=== PATIENT | female | born 1950 | race Caucasian/White ===

== ENCOUNTER 2016-11-03 08:25 | Inpatient (IN) | payer BC, OTHER ==
[~2016-11-03] VITALS: Ht 170.2 cm; Wt 118.0 kg
[~2016-11-03 08:25] MED LIST: ASPI-435 PO; ATOR-54 PO; CALC600T33 PO; CPR500 PO; GLUC15002 PO; LPR25 PO; PHEN-876 PO; TAMS0.4C38 PO; TRAM-10 PO
[2016-11-03 08:32] VITALS: TEMP 36.7; Ht 170.2 cm; Wt 118.0 kg
[2016-11-03 08:35] VITALS: O2SAT 93
[2016-11-03] MEDS ORDERED: SODIUM CHLORIDE 0.9% 1000ML 1,000 ML IV STA (08:41)
[2016-11-03] MEDS ORDERED: SODIUM CHLORIDE 0.9% 1000ML 1,000 ML IV ONE (08:41)
--- NOTE | 2016-11-03 08:46 | EMERGENCY ROOM VISIT NOTE ---
History Report prepared by Love: Loree Todd Under the Supervision of: Dr. Tam Baird M.D. First contact with patient: 08:31 Chief Complaint: CARDIAC ASSESSMENT Stated Complaint: POS A-FIB, FAST HEARTRATE History of Present Illness The patient is a 66 year old female who presents to the Emergency Room with complaints of an intermittent fast heart rate that began about a week ago. The patient states that she feels well when she is sitting still but starts to feel her heart racing when she exerts herself. She was raking leaves a few days ago, which is normal activity for her, and had to stop a few times to take deep breaths and slow down her heart rate. She has not passed out. Currently, the patient states that she feels great. She does not currently feel her heart racing or skipping beats. She initially saw her PCP last week and had blood work. She is scheduled for testing on Sunday because her PCP suspects COPD. She does not have a history of chronic lung problems. No history of anxiety, blood clots or thyroid problems. There is a strong family history of heart disease. The patient had an episode of a-fib February 2016 and was put on Metoprolol, She is not on a blood thinner. Denies fevers, calf pain or swelling, or other complaints. No recent travel. She has been keeping up with fluids. Source of History: patient Onset: a week ago Position: other (global) Quality: other (fast heart rate) Modifying Factors (Worsening): exertion Modifying Factors (Relieving): rest Associated Symptoms: No fevers Review of Systems See HPI for pertinent positives & negatives. A total of 10 systems reviewed and were otherwise negative. Past Medical & Surgical Medical Problems: (1) Diabetes mellitus, type 2 (2) Dyslipidemia (3) History of urinary calculi (4) Morbid obesity with BMI of 40.0-44.9, adult (5) Normal colonoscopy (6) Obesity (BMI 30-39.9) (7) SRIDHAR on CPAP (8) Paroxysmal atrial fibrillation (9) Pulmonary embolism (10) UTI (urinary tract infection) Surgical Problems: (1) H/O cystoscopy (2) History of tonsillectomy (3) History of total abdominal hysterectomy (4) S/P cholecystectomy (5) Status post colonoscopy Old medical records were reviewed. Nurse's notes were reviewed and I agree with. Family History Diabetes mellitus FH: cancer FH: gallbladder disease FH: heart disease FH: lung disease Hypertension Kidney disease Kidney stones Social History Smoking Status: Never Smoker Alcohol Use: none Marital Status: Housing Status: lives with significant other Occupation Status: employed Current/Historical Medications Scheduled Aspirin (Aspirin 81), 81 MG PO DAILY Atorvastatin (Lipitor), 20 MG PO DAILY Calcium Carbonate-Vitamin D (Calcium 600/Vitamin D), 1 TAB PO BID Metoprolol Tartrate (Lopressor), 25 MG PO BID Allergies Coded Allergies: Penicillins (Verified Allergy, Intermediate, VIOLENT NOSE BLEEDS, 11/03/16) Morphine (Verified Adverse Reaction, Intermediate, GI SYMPTOMS, 11/03/16) Codeine (Verified Adverse Reaction, Mild, GI SYMPTOMS, "OUT OF BODY EXPERIENCE", 11/03/16) Physical Exam Vital Signs Date Time Temp Pulse Resp B/P Pulse Ox O2 Delivery O2 Flow Rate FiO2 11/03/16 11:09 108 18 133/96 90 Nasal Cannula 4.0 11/03/16 10:35 102 24 139/80 88 Nasal Cannula 4.0 11/03/16 10:22 110 24 139/89 Nasal Cannula 2.0 11/03/16 09:23 98 24 147/89 90 Nasal Cannula 2.0 11/03/16 08:35 93 Nasal Cannula 2.0 11/03/16 08:35 119 11/03/16 08:35 86 Room Air 11/03/16 08:32 36.7 126 28 142/87 88 Room Air Physical Exam General: Non-ill appearing older female. Well developed well nourished in no acute distress. Normal speech HEENT: Normal cephalic atraumatic. Pupils are equal round and reactive to light. Sclera anicteric. Extraocular movements are intact. Oropharynx is pink with moist mucous membranes. No swelling of the mouth lips or tongue. Neck: Supple with a midline trachea. No meningeal signs or stiffness, no JVD or bruits. No Stridor. Chest: Clear to auscultation bilaterally. No wheezes or rhonchi. No increased work of breathing. Heart: Sinus tachycardia. Abdomen: Soft nontender, nondistended without rebound guarding or rigidity. Extremities: No cyanosis clubbing or edema. No calf tenderness or assymetry Spine/Back. Non tender to palpation. No CVA tenderness Skin: Good turgor without rashes. Neurologic exam: Cranial nerves two through 12 are intact. Motor and sensation are intact and symmetrical throughout. Medical Decision & Procedures ER Provider Diagnostic Interpretation: Radiology results as stated below per my review and radiologist interpretation: CHEST ONE VIEW PORTABLE CLINICAL HISTORY: CHEST PAIN dyspnea COMPARISON STUDY: 02/25/2016 FINDINGS: Focal infiltrate versus nodular pathology left upper lung. Lungs otherwise appear clear. No evidence for cardiac enlargement. IMPRESSION: Interval development of a focal infiltrate left upper lung versus the less likely possibility of a developing nodular pathology. Follow-up to resolution is suggested Electronically signed by: Sarath Jay M.D. 11/03/2016 9:01 AM Dictated Date/Time: 11/03/2016 9:00 AM CHEST CTA for PULMONARY ARTERIES CT DOSE: 559.46 mGycm HISTORY: Chest pain dyspnea. Abnormal chest x-ray. TECHNIQUE: Multiaxial CT images of the chest were performed following the intravenous administration of contrast to evaluate the pulmonary arteries. Maximal intensity projection images were also obtained. COMPARISON STUDY: 02/27/2016 FINDINGS: Study is positive for bilateral pulmonary emboli. This involves the distal right main pulmonary artery with additional filling defects in the right upper as well as right lower lung. Study is positive for pulmonary emboli involving the left lower as well as left upper lobe pulmonary arterial distributions. Study confirms presence of small parenchymal infiltrate anterior aspect right upper lobe as well as a geographic infiltrative process of the left perihilar region. This confirms the findings seen in the patient's chest film. There is a 6 x 3 cm maximum dimension left perihilar infiltrate.. Focal areas of potential contained nodularity are present. This presumably is inflammatory although should be watched closely. Follow-up to resolution is mandatory IMPRESSION: 1. Study is positive for extensive bilateral pulmonary emboli. 2. 6 x 3 cm left perihilar parenchymal infiltrate, although this should be followed to complete resolution to exclude possibility of underlying persistent nodularity or neoplastic change. Electronically signed by: Sarath Jay M.D. 11/03/2016 10:33 AM Dictated Date/Time: 11/03/2016 10:23 AM CHEST ONE VIEW PORTABLE CLINICAL HISTORY: CHEST PAIN dyspnea COMPARISON STUDY: Prior study same date 8:47 AM FINDINGS: Mild progression of a parenchymal infiltrative process left midlung. Slight increase in parenchymal density left lung base. Right lung remains clear. Heart remains mildly enlarged. IMPRESSION: Mildly progressive parenchymal infiltrative changes left midlung and left base. Mild stable cardiomegaly. Electronically signed by: Sarath Jay M.D. 11/03/2016 3:07 PM Dictated Date/Time: 11/03/2016 3:06 PM Laboratory Results 11/03/16 08:36 Red Blood Count 5.02, Mean Corpuscular Volume 85.1, Mean Corpuscular Hemoglobin 29.1, Mean Corpuscular Hemoglobin Concent 34.2, Mean Platelet Volume 9.4, Neutrophils (%) (Auto) 67.3, Lymphocytes (%) (Auto) 25.0, Monocytes (%) (Auto) 6.2, Eosinophils (%) (Auto) 1.2, Basophils (%) (Auto) 0.2, Neutrophils # (Auto) 5.97, Lymphocytes # (Auto) 2.22, Monocytes # (Auto) 0.55, Eosinophils # (Auto) 0.11, Basophils # (Auto) 0.02 11/03/16 08:36 Test 11/03/16 08:36 11/03/16 09:15 White Blood Count 8.88 K/uL (4.8-10.8) Red Blood Count 5.02 M/uL (4.2-5.4) Hemoglobin 14.6 g/dL (12.0-16.0) Hematocrit 42.7 % (37-47) Mean Corpuscular Volume 85.1 fL (80-100) Mean Corpuscular Hemoglobin 29.1 pg (25-34) Mean Corpuscular Hemoglobin Concent 34.2 g/dl (32-36) Platelet Count 197 K/uL (130-400) Mean Platelet Volume 9.4 fL (7.4-10.4) Neutrophils (%) (Auto) 67.3 % Lymphocytes (%) (Auto) 25.0 % Monocytes (%) (Auto) 6.2 % Eosinophils (%) (Auto) 1.2 % Basophils (%) (Auto) 0.2 % Neutrophils # (Auto) 5.97 K/uL (1.4-6.5) Lymphocytes # (Auto) 2.22 K/uL (1.2-3.4) Monocytes # (Auto) 0.55 K/uL (0.11-0.59) Eosinophils # (Auto) 0.11 K/uL (0-0.5) Basophils # (Auto) 0.02 K/uL (0-0.2) RDW Standard Deviation 43.1 fL (36.4-46.3) RDW Coefficient of Variation 13.9 % (11.5-14.5) Immature Granulocyte % (Auto) 0.1 % Immature Granulocyte # (Auto) 0.01 K/uL (0.00-0.02) Prothrombin Time 11.0 SECONDS (9.0-12.0) Prothromb Time International Ratio 1.0 (0.9-1.1) Activated Partial Thromboplast Time 24.0 SECONDS (21.0-31.0) Partial Thromboplastin Ratio 0.9 Anion Gap 11.0 mmol/L (3-11) Est Creatinine Clear Calc Drug Dose 67.8 ml/min Estimated GFR () 61.0 Estimated GFR (Non- 52.6 BUN/Creatinine Ratio 18.1 (10-20) Calcium Level 9.1 mg/dl (8.5-10.1) Total Bilirubin 0.8 mg/dl (0.2-1) Direct Bilirubin 0.1 mg/dl (0-0.2) Aspartate Amino Transf (AST/SGOT) 33 U/L (15-37) Alanine Aminotransferase (ALT/SGPT) 23 U/L (12-78) Alkaline Phosphatase 102 U/L (45-117) Total Creatine Kinase 155 U/L (26-192) Creatine Kinase MB 2.6 ng/ml (0.5-3.6) Creatine Kinase MB Ratio 1.7 (0-3.0) Total Protein 7.4 gm/dl (6.4-8.2) Albumin 3.6 gm/dl (3.4-5.0) Lipase 124 U/L (73-393) Thyroid Stimulating Hormone (TSH) 3.950 uIu/ml (0.300-4.500) Bedside D-Dimer > 450 ng/mlFEU (0-450) Bedside Troponin I 0.060 ng/ml (0-0.045) WB-Ezt-Z-Type Natriuretic Peptide 3300 pg/ml (0-900) Laboratory studies as stated above per my review. Medications Administered Medications (Trade) Dose Ordered Sig/Evelyn Route Start Time Stop Time Status Last Admin Dose Admin Sodium Chloride (Nss 1000ml) 1,000 ml @ 999 mls/hr Q1H1M STAT IV 11/03/16 08:41 11/03/16 09:41 DC 11/03/16 08:41 999 MLS/HR Heparin Sodium/ Dextrose (Heparin 25,000 Unit/500ml D5W) 25,000 unit STK-MED ONCE .ROUTE 11/03/16 11:05 11/03/16 11:06 DC 11/03/16 11:06 25,000 UNIT Heparin Sodium (Porcine) (Heparin Sq 5000 Unit/0.5ml) 10,000 unit STK-MED ONCE .ROUTE 11/03/16 11:05 11/03/16 11:06 DC 11/03/16 11:05 7,000 UNIT ECG Indication: tachycardia Rate (beats per minute): 125 Rhythm: sinus tachycardia Findings: no acute ischemic change, other (nonspecific T wave abnormality) Comparison ECG Date: 02/27/16 Change: Sinus tachycardia has replaced a-fib. REPEAT EKG: Sinus tachycardia at 108 BPM. Nonspecific T wave abnormality. Compared to EKG from earlier today, T waves are more nonspecific. ED Course 0835: Past medical records reviewed. The patient was evaluated in room B3, and a complete history and physical examination were performed. 0841: Ordered NSS 1000 ml @ 150 mls/hr IV, NSS 1000 ml @ 999 mls/hr IV. 0912: I reassessed the patient. She was resting comfortably. Her oxygen was in the high 80s and her heart rate was in the 90s. 1019: I reassessed the patient. She just came back from CT scan. She is feeling comfortable as long as she is at rest. 1034: Upon reevaluation, the patient is resting comfortably. I discussed the results and treatment plan with the patient. She verbalized agreement of the treatment plan. The patient will be evaluated for further management. 1041: Ordered Heparin Sodium/Dextrose 1 ea. 1047: I discussed the case with Angela Chester PA-C - [facility]. The patient will be evaluated for further management. 1323: The patient had a syncopal episode on the commode and a code blue was called. CPR was administered. Intubation and TPA was considered; however, the patient came to and was put on the monitor. 1353: I reassessed the patient. She looks better. She was less tachycardic and normotensive. 1403: I reassessed the patient. She is feeling better. 1410: I reassessed the patient. She is doing much better. [id number]: Dr. Reyes - ICU spoke with [facility], Dr. Barreto - [facility], Dr. Gonzalez - [facility], and Dr. Glaser - [facility]. Dr. Glaser will be the accepting physician for the patient's transfer. The patient signed consent for transfer to [facility] arranged by Dr. Reyes. 1442: I updated the patient. Ordered Fentanyl Inj 50 mcg IV. 1448: Ordered Zofran Inj 4 mg IV. 1456: I reassessed the patient. She looks much better. 1459: [facility] should be arriving in about 20 minutes. 1500: I updated the patient on the [facility] arrival time. Medical Decision Differentials include PE, arrhythmia, acute coronary syndrome, electrolyte or metabolic abnormality, thyroid disease. This patient comes in as described above. She was placed in room B3. She is here for treatment and evaluation of shortness breath and tachycardia. It is primarily with exertion at rest she feels fine she still is tachycardic. She does have a history of A. fib 1 is on Metoprol. She had no fever. She looks well on exam. IV access was established EKG multiple blood tests was obtained chest x-ray was obtained. Based on her history is concern for PE among other medical problems. Jicha sinus tachycardia troponin is mildly elevated 0.6 her BNP is mildly elevated. She's had no acute electrolyte metabolic abnormality. CAT scan shows bilateral PE with large clot burden. There is no saddle emboli. She was started on IV heparin bolus and hourly rate of IV heparin. I did consult the [facility] hospitalist. The patient had been seen and was waiting to be admitted. The nurse came and told me that she had collapsed on the toilet. We went in the room and the patient had some agonal respirations we started CPR and were able to drag her out of the bathroom she woke up and started screaming he put her on the bed and established a second third IV. A CODE BLUE had been called and multiple people responded Dr. Reyes from the ICU also came down. There was consideration to given her TPA however she seemed to stabilize quickly and most likely was a vasovagal episode in the setting of a large clot burden. Dr. Reyes feels that she would be best served at a tertiary care center with a could potentially do catheter directed therapy. He has called and talked to the team at [facility] and [facility] is going to come flying her in transfer for her pulmonary embolism. He did a second EKG and there is no significant change compared to the first. The T waves do appear more nonspecific. I did a chest x-ray after CPR there is no pneumothorax. She does have haziness in the left lung that was there before but may be more pronounced likely consistent with a pulmonary infarct from her PE. [facility] did arrive promptly. I did reassess her frequently and just prior to discharge and she looked significantly better her O2 sat was in the mid 90s on supplemental oxygen and her vital signs are stable. She willl be transfered emergently to [facility]. Consults Time Called: 1034 Consulting Physician: [facility] Returned Call: 1041 I discussed the case with her. The patient will be evaluated for further management. Impression Primary Impression: Pulmonary embolism Additional Impressions: Tachycardia Syncope Vaso vagal episode Critical Care I have personally spent greater than 60 minutes of critical care time in the direct management of this patient. This includes bedside care, interpretation of diagnostic studies, and testing, discussion with consultants, patient, and family members, and other required patient management activities. This 60 minutes is in excess of all separately billable procedures. Scribe Attestation The scribe's documentation has been prepared under my direction and personally reviewed by me in its entirety. I confirm that the note above accurately reflects all work, treatment, procedures, and medical decision making performed by me. Departure Information Dispostion Transfer Acute Care Facility Referrals Kristin Bar D.O. (PCP) Patient Instructions [facility] Problem Qualifiers
[2016-11-03 08:53] LABS: BASO % 0.2 %; BASO ABS # 0.02 K/uL (0-0.2); COMPLETE YES; EOS % 1.2 %; HEMATOCRIT 42.7 % (37-47); IG% 0.1 %; LYMPH ABS # 2.22 K/uL (1.2-3.4); MEAN CELL VOLUME 85.1 fL (80-100); MEAN CORPUSCULAR HEMOGLOBIN 29.1 pg (25-34); MEAN CORPUSCULAR HGB CONC 34.2 g/dl (32-36); MEAN PLATELET VOLUME 9.4 fL (7.4-10.4); MONO % 6.2 %; NEUT % 67.3 %; PLATELET COUNT 197 K/uL (130-400); RED BLOOD COUNT 5.02 M/uL (4.2-5.4); WHITE BLOOD COUNT 8.88 K/uL (4.8-10.8)
[2016-11-03 08:59] LABS: PARTIAL THROMBOPLASTIN RATIO 0.9
--- NOTE | 2016-11-03 09:02 | DIAGNOSTIC IMAGING REPORT ---
CHEST ONE VIEW PORTABLE CLINICAL HISTORY: CHEST PAIN dyspnea COMPARISON STUDY: 02/25/2016 FINDINGS: Focal infiltrate versus nodular pathology left upper lung. Lungs otherwise appear clear. No evidence for cardiac enlargement. IMPRESSION: Interval development of a focal infiltrate left upper lung versus the less likely possibility of a developing nodular pathology. Follow-up to resolution is suggested Electronically signed by: Sarath Jay M.D. 11/03/2016 9:01 AM Dictated Date/Time: 11/03/2016 9:00 AM
[2016-11-03 09:07] LABS: BUN/CREATININE RATIO 18.1 (10-20); CALCIUM 9.1 mg/dl (8.5-10.1); CREATININE 1.1 mg/dl (0.60-1.20); POTASSIUM 3.8 mmol/L (3.5-5.1)
[2016-11-03 09:17] LABS: CKMB/CK RATIO 1.7 (0-3.0); THYROID STIMULATING HORMONE 3.95 uIu/ml (0.300-4.500)
[2016-11-03 09:39] LABS: POINT OF CARE PRO-BNP 3300 pg/ml (0-900)
[2016-11-03] MEDS ORDERED: OPTIRAY 320 IV PRN (09:45)
--- NOTE | 2016-11-03 10:34 | DIAGNOSTIC IMAGING REPORT ---
CHEST CTA for PULMONARY ARTERIES CT DOSE: 559.46 mGycm HISTORY: Chest pain dyspnea. Abnormal chest x-ray. TECHNIQUE: Multiaxial CT images of the chest were performed following the intravenous administration of contrast to evaluate the pulmonary arteries. Maximal intensity projection images were also obtained. COMPARISON STUDY: 02/27/2016 FINDINGS: Study is positive for bilateral pulmonary emboli. This involves the distal right main pulmonary artery with additional filling defects in the right upper as well as right lower lung. Study is positive for pulmonary emboli involving the left lower as well as left upper lobe pulmonary arterial distributions. Study confirms presence of small parenchymal infiltrate anterior aspect right upper lobe as well as a geographic infiltrative process of the left perihilar region. This confirms the findings seen in the patient's chest film. There is a 6 x 3 cm maximum dimension left perihilar infiltrate.. Focal areas of potential contained nodularity are present. This presumably is inflammatory although should be watched closely. Follow-up to resolution is mandatory IMPRESSION: 1. Study is positive for extensive bilateral pulmonary emboli. 2. 6 x 3 cm left perihilar parenchymal infiltrate, although this should be followed to complete resolution to exclude possibility of underlying persistent nodularity or neoplastic change. Electronically signed by: Sarath Jay M.D. 11/03/2016 10:33 AM Dictated Date/Time: 11/03/2016 10:23 AM
[2016-11-03] MEDS ORDERED: HEPARIN SOD 5000 UNIT/0.5 ML CARP ONE (11:05)
[2016-11-03] MEDS ORDERED: HEPARIN 25000 UNIT/500 ML D5W ONE (11:05)
[2016-11-03] MEDS ORDERED: ACETAMINOPHEN 325 MG TAB PO PRN (11:45)
[2016-11-03] MEDS ORDERED: HEPARIN IV LOW DOSE NO BOLUS STA (11:45)
[2016-11-03] MEDS ORDERED: NITROGLYCERIN 0.4 MG SL PER TAB CHARGE SL PRN (11:45)
[2016-11-03] MEDS ORDERED: ONDANSETRON INJ 2 MG/ML 2 ML VIAL IV PRN (11:45)
[2016-11-03] MEDS ORDERED: GLUCAGON FOR INJ 1 MG VIAL SQ PRN (12:00)
[2016-11-03] MEDS ORDERED: GLUCOSE 10 TABS/TUBE PO PRN (12:00)
[2016-11-03] MEDS ORDERED: DEXTROSE 50% 50 ML SYR IV PRN (12:00)
[2016-11-03] MEDS ORDERED: GLUCOSE 40% GEL 15 GM TUBE PO PRN (12:00)
[2016-11-03] MEDS ORDERED: HEPARIN 25,000 UNIT/500ML D5W 500 ML IV PRN (12:15)
--- NOTE | 2016-11-03 12:15 | History and Physical ---
History & Physical Date & Time of Service: Nov 03, 2016 at 11:53 Chief Complaint: Pos A-Fib, Fast Heartrate Primary Care Physician: Kristin Bar D.O. History of Present Illness Source: patient This is a 66 y/o female with PMHx of PAF not on anticoagulation, diet- controlled Dm 2, SRIDHAR on CPAP and Dyslipidemia who presents to the ED c/o exertional SOB x 1 week. Pt reports that one week ago she developed SOB with exertion. Her sxs are assoc with palpitations, racing heart rate and L shoulder pain. She also mentions a mild prod cough of "creamy" sputum which is chronic and unchanged from baseline. Pt denies any recent surgery or travel. She has no history of blood clot. Pt has a history of PAF on metoprolol and ASA. She is not on any anticoagulation. She follows with cardiology, Sarath Anglin PA-C. Pt has a strong FmHx of CVD. Pt denies fever/chills, diaphoresis, syncope, chest pain, wheezing, abd pain, N/V, bowel or bladder issues, LE edema ,calf pain, lightheadedness/dizziness. In the ED, pt is tachy, dyspneic and hypoxic on room air. Trop 0.06 and EKG + T wave inversions in inf leads. CT chest + extensive bilat PE. Pt is hemodynamically stable and will be admitted for further evaluation and treatment. Past Medical/Surgical History Medical Problems: (1) Diabetes mellitus, type 2 Status: Chronic (2) Dyslipidemia Status: Chronic (3) History of urinary calculi Status: Chronic (4) Normal colonoscopy Status: Chronic (5) Obesity (BMI 30-39.9) Status: Chronic (6) SRIDHAR on CPAP Status: Chronic (7) Paroxysmal atrial fibrillation Status: Chronic Surgical Problems: (1) H/O cystoscopy Status: Chronic (2) History of tonsillectomy Status: Chronic (3) History of total abdominal hysterectomy Status: Chronic (4) S/P cholecystectomy Status: Chronic (5) Status post colonoscopy Status: Chronic Family History Diabetes mellitus FH: cancer FH: gallbladder disease FH: heart disease FH: lung disease Hypertension Kidney disease Kidney stones Social History Smoking Status: Never Smoker (+ second hand smoke exposure) Alcohol Use: occasionally Drug Use: none Marital Status: Housing status: lives with family Occupational Status: employed Multi-Drug Resistant Organisms History of MDRO: No Allergies Coded Allergies: Penicillins (Verified Allergy, Intermediate, VIOLENT NOSE BLEEDS, 11/03/16) Morphine (Verified Adverse Reaction, Intermediate, GI SYMPTOMS, 11/03/16) Codeine (Verified Adverse Reaction, Mild, GI SYMPTOMS, "OUT OF BODY EXPERIENCE", 11/03/16) Home Medications Scheduled Aspirin (Aspirin 81), 81 MG PO DAILY Atorvastatin (Lipitor), 20 MG PO DAILY Calcium Carbonate-Vitamin D (Calcium 600/Vitamin D), 1 TAB PO BID Metoprolol Tartrate (Lopressor), 25 MG PO BID Review of Systems Constitutional: No chills, No fatigue, No fever, No sweats, No weakness Eyes: No worsening of vision ENT: No hearing loss Respiratory: + cough (chronic (at baseline)), + dyspnea on exertion, + shortness of breath, + sputum, No dyspnea at rest, No wheezing Cardiovascular: + palpitations, No chest pain, No claudication, No edema Abdomen: No constipation, No diarrhea, No nausea, No pain, No vomiting Musculoskeletal: No calf pain, No swelling Genitourinary - Female: No dysuria Neurologic: No weakness Psychiatric: No depression symptoms Endocrine: No fatigue Hematologic / Lymphatic: No abnormal bleeding/bruising Integumentary: No new/changing skin lesions Physical Exam Vital Signs Date Time Temp Pulse Resp B/P Pulse Ox O2 Delivery O2 Flow Rate FiO2 11/03/16 10:35 102 24 139/80 88 Nasal Cannula 4.0 11/03/16 10:22 110 24 139/89 Nasal Cannula 2.0 11/03/16 09:23 98 24 147/89 90 Nasal Cannula 2.0 11/03/16 08:35 93 Nasal Cannula 2.0 11/03/16 08:35 119 11/03/16 08:35 86 Room Air 11/03/16 08:32 36.7 126 28 142/87 88 Room Air General Appearance: WD/WN, no apparent distress, + obese, + pertinent finding ( Pt is laying in bed with and niece at bedside) Head: normocephalic, atraumatic Eyes: normal inspection ENT: hearing grossly normal Neck: supple Respiratory/Chest: chest non-tender, lungs clear, normal breath sounds, no respiratory distress Cardiovascular: no edema, no murmur, + tachycardia Abdomen/GI: normal bowel sounds, non tender, soft Back: normal inspection Extremities/Musculoskelatal: normal inspection, no calf tenderness, no pedal edema Neurologic/Psych: alert, normal mood/affect, oriented x 3 Skin: normal color, warm/dry Diagnostics Laboratory Results Results Past 24 Hours Test 11/03/16 08:36 11/03/16 09:15 11/03/16 11:36 Range/Units White Blood Count 8.88 4.8-10.8 K/uL Red Blood Count 5.02 4.2-5.4 M/uL Hemoglobin 14.6 12.0-16.0 g/dL Hematocrit 42.7 37-47 % Mean Corpuscular Volume 85.1 80-100 fL Mean Corpuscular Hemoglobin 29.1 25-34 pg Mean Corpuscular Hemoglobin Concent 34.2 32-36 g/dl Platelet Count 197 130-400 K/uL Mean Platelet Volume 9.4 7.4-10.4 fL Neutrophils (%) (Auto) 67.3 % Lymphocytes (%) (Auto) 25.0 % Monocytes (%) (Auto) 6.2 % Eosinophils (%) (Auto) 1.2 % Basophils (%) (Auto) 0.2 % Neutrophils # (Auto) 5.97 1.4-6.5 K/uL Lymphocytes # (Auto) 2.22 1.2-3.4 K/uL Monocytes # (Auto) 0.55 0.11-0.59 K/uL Eosinophils # (Auto) 0.11 0-0.5 K/uL Basophils # (Auto) 0.02 0-0.2 K/uL RDW Standard Deviation 43.1 36.4-46.3 fL RDW Coefficient of Variation 13.9 11.5-14.5 % Immature Granulocyte % (Auto) 0.1 % Immature Granulocyte # (Auto) 0.01 0.00-0.02 K/uL Prothrombin Time 11.0 9.0-12.0 SECONDS Prothromb Time International Ratio 1.0 0.9-1.1 Activated Partial Thromboplast Time 24.0 21.0-31.0 SECONDS Partial Thromboplastin Ratio 0.9 Sodium Level 141 136-145 mmol/L Potassium Level 3.8 3.5-5.1 mmol/L Chloride Level 107 98-107 mmol/L Carbon Dioxide Level 23 21-32 mmol/L Anion Gap 11.0 3-11 mmol/L Blood Urea Nitrogen 20 7-18 mg/dl Creatinine 1.10 0.60-1.20 mg/dl Est Creatinine Clear Calc Drug Dose 67.8 ml/min Estimated GFR () 61.0 Estimated GFR (Non- 52.6 BUN/Creatinine Ratio 18.1 10-20 Random Glucose 180 70-99 mg/dl Calcium Level 9.1 8.5-10.1 mg/dl Total Bilirubin 0.8 0.2-1 mg/dl Direct Bilirubin 0.1 0-0.2 mg/dl Aspartate Amino Transf (AST/SGOT) 33 15-37 U/L Alanine Aminotransferase (ALT/SGPT) 23 12-78 U/L Alkaline Phosphatase 102 45-117 U/L Total Creatine Kinase 155 26-192 U/L Creatine Kinase MB 2.6 0.5-3.6 ng/ml Creatine Kinase MB Ratio 1.7 0-3.0 Total Protein 7.4 6.4-8.2 gm/dl Albumin 3.6 3.4-5.0 gm/dl Lipase 124 73-393 U/L Thyroid Stimulating Hormone (TSH) 3.950 0.300-4.500 uIu/ml Bedside D-Dimer > 450 0-450 ng/mlFEU Bedside Troponin I 0.060 0-0.045 ng/ml DJ-Eri-O-Type Natriuretic Peptide 3300 0-900 pg/ml Diagnostic Radiology CTA CHEST IMPRESSION: 1. Study is positive for extensive bilateral pulmonary emboli. 2. 6 x 3 cm left perihilar parenchymal infiltrate, although this should be followed to complete resolution to exclude possibility of underlying persistent nodularity or neoplastic change. CXR IMPRESSION: Interval development of a focal infiltrate left upper lung versus the less likely possibility of a developing nodular pathology. Follow-up to resolution is suggested EKG EKG: sinus tachy at 125bpm with T wave inversions in inferior leads; when compared to EKG from 02/27/16, Sinus rhythm has replaced Afib and T wave inversions have replaced nonspec T wave abnormality Impression Assessment and Plan BILATERAL PULMONARY EMBOLISM pt presents with 1 week of exertional SOB assoc with palpitations and racing heart rate -admit to telemetry -pt was tachy, dyspneic and hypoxic to 88% on room air upon arrival; now saturating around 90% on 4L O2 -afebrile with no leukocytosis -CT chest + extensive bilat PE as well as 6.3 cm L parenchymal infiltrate; possible infarct (most likely) vs. pneumonia vs. neoplasm -complete hypercoagulable workup -obtain echo -start heparin drip -started PO Levaquin to cover possible KAMINI pneumonia -consult pulmonology, Dr. Fernández-pending input -pt is hemodynamically stable -monitor ELEVATED TROPONIN -Trop 0.06; likely elevated due to acute PE/demand ischemia from tachycardia -trend Jade -EKG: T wave inversions in inferior leads -pt denies any chest pain -monitor PAROXYSMAL AFIB -EKG: sinus rhythm -not on anticoagulation -cont metoprolol and ASA -monitor DIET-CONTROLLED DM 2 -recent A1C 6.5 -diabetic diet -ISS -monitor SRIDHAR ON CPAP -initial setup for CPAP DYSLIPIDEMIA -cont statin DVT PROPHYLAXIS -heparin drip CODE STATUS -FULL CODE per discussion with patient upon admission DISPO Pt seen in collaboration with Dr. Hewitt. Please see his addendum for further details. Thanks! -Of note: patient will be followed by Dr. Cazares starting tomorrow AM. ATTENDING ADDENDUM care coordinated with HESHAM Chestre please refer to her notes for full details, I agree with her notes patient seen and examined, records reviewed by myself as well on exam, patient seen sitting up in bed with nasal cannula alert, conversant, in good spirits, comfortable states she feels improved compared to arrival no active shortness of breath, has productive cough reports pain on the left upper chest near shoulder region when exerting no other symptoms VS noted and reviewed oriented x 3 , not in distress, speaks in sentences with no effort nor accessory muscle use normal rate, regular rhythm, no murmurs clear breath sounds bilaterally non distended, soft, nontender no bipedal edema, erythema, warmth no neuro deficits WBC 8.[address] chest: bilateral PE, left lung infiltrate EKG: possible non specific t wave inversions in the inferior leads ASSESSMENT/PLAN> BILATERAL PULMONARY EMBOLISM - hypercoagulable work up ordered - no history of bleeding per patient heparin drip oxygen supplementation - check echo - Pulmonary consult LEFT SIDED PNEUMONIA - empiric Levaquin - sputum cultures - repeat imaging to confirm resolution MILD TROPONIN ELEVATION - possible cardiac strain secondary to PE - follow cardiac markers echo other diagnoses and plan of care as per HESHAM Chester's notes Renny Hewitt MD Code blue for patient was called history obtained from nurse staff patient was found in the bathroom, states she was not feeling good, became unresponsive, pulseless CPR performed for about 2 minutes, patient regained consciousness, placed on non rebreather became oriented x [address] Baird discussing transfer to [facility] with family Renny Hewitt MD VTE Prophylaxis VTE Risk Assessment Done? Y/N: Yes Risk Level: High
[2016-11-03] MEDS ORDERED: RECOMBINANT IV ONE (14:00)
[2016-11-03] MEDS ORDERED: ALTEPLASE IV ONE (14:00)
[2016-11-03] MEDS ORDERED: SET 2260-0500 IV ONE (14:00)
[2016-11-03] MEDS ORDERED: FENTANYL CITRATE INJ 50 MCG/1 ML 2 ML VIAL IV STA (14:41)
[2016-11-03] MEDS ORDERED: ONDANSETRON INJ 2 MG/ML 2 ML VIAL IV STA (14:48)
--- NOTE | 2016-11-03 15:09 | DIAGNOSTIC IMAGING REPORT ---
CHEST ONE VIEW PORTABLE CLINICAL HISTORY: CHEST PAIN dyspnea COMPARISON STUDY: Prior study same date 8:47 AM FINDINGS: Mild progression of a parenchymal infiltrative process left midlung. Slight increase in parenchymal density left lung base. Right lung remains clear. Heart remains mildly enlarged. IMPRESSION: Mildly progressive parenchymal infiltrative changes left midlung and left base. Mild stable cardiomegaly. Electronically signed by: Sarath Jay M.D. 11/03/2016 3:07 PM Dictated Date/Time: 11/03/2016 3:06 PM
--- NOTE | 2016-11-03 15:43 | Critical Care Consultation ---
Critical Care Consultation Date of Consultation: Nov 03, 2016. Attending Physician: Doris Cazares DO Reason for Consultation: Bilateral pulmonary emboli History of Present Illness Patient is a 66-year-old female who was initially a CODE BLUE in the emergency department secondary to a possible syncopal event while sitting on the toilet. Bedside nurse reports that the patient went into the commode, stated she was extremely short of breath became anxious and slumped over. Nursing reports that she later to the floor did not feel a pulse and started CPR for less than 1 minute, she quickly regained consciousness, was mildly disoriented, assisted back onto the stretcher. She is placed on a nonrebreather her oxygen saturations were in the mid 80s while on room air they elevated to 89% on a simple facemask, and initial blood pressure was approximately 130/80. Heart rate was 120. Past Medical/Surgical History Reported past medical history per prior records includes paroxysmal A. fib (not on Coumadin), type 2 diabetes, dyslipidemia, history of renal calculi, obstructive sleep apnea on CPAP. Family History Diabetes mellitus FH: cancer FH: gallbladder disease FH: heart disease FH: lung disease Hypertension Kidney disease Kidney stones Reports strong history of blood clots Social History Smoking Status: Never Smoker (+ second hand smoke exposure) Alcohol Use: occasionally Drug Use: none Marital Status: Housing Status: lives with significant other Occupation Status: employed Allergies Coded Allergies: Penicillins (Verified Allergy, Intermediate, VIOLENT NOSE BLEEDS, 11/03/16) Morphine (Verified Adverse Reaction, Intermediate, GI SYMPTOMS, 11/03/16) Codeine (Verified Adverse Reaction, Mild, GI SYMPTOMS, "OUT OF BODY EXPERIENCE", 11/03/16) Home Medications Scheduled Aspirin (Aspirin 81), 81 MG PO DAILY Atorvastatin (Lipitor), 20 MG PO DAILY Calcium Carbonate-Vitamin D (Calcium 600/Vitamin D), 1 TAB PO BID Metoprolol Tartrate (Lopressor), 25 MG PO BID Current Inpatient Medications Current Inpatient Medications Medications (Trade) Dose Ordered Sig/Evelyn Route Start Time Stop Time Status Last Admin Dose Admin Ioversol (Optiray 320) 125 ml UD PRN IV 11/03/16 09:45 11/07/16 09:44 Acetaminophen (Tylenol Tab) 650 mg Q4H PRN PO 11/03/16 11:45 12/03/16 11:44 Ondansetron HCl (Zofran Inj) 4 mg Q6H PRN IV 11/03/16 11:45 12/03/16 11:44 Nitroglycerin (Nitrostat Tab) 0.4 mg UD PRN SL 11/03/16 11:45 12/03/16 11:44 Aspirin (Ecotrin Tab) 81 mg DAILY PO 11/04/16 09:00 12/04/16 08:59 Atorvastatin Calcium (Lipitor Tab) 20 mg DAILY PO 11/04/16 09:00 12/04/16 08:59 Metoprolol Tartrate (Lopressor Tab) 25 mg BID PO 11/03/16 21:00 12/03/16 20:59 Calcium/Vitamin D (Caltrate Plus Tab) 1 tab BID PO 11/03/16 21:00 12/03/16 20:59 Levofloxacin (Levaquin Tab) 500 mg DAILY@11 PO 11/04/16 11:00 11/11/16 10:59 Insulin Aspart (novoLOG ASPART) SLIDING SCALE If C... ACHS SC 11/03/16 16:00 12/03/16 15:59 Glucose (Glucose 40% Gel) 15-30 GRAMS 15 GRAMS... UD PRN PO 11/03/16 12:00 12/03/16 11:59 Glucose (Glucose Chew Tab) 4-8 Tablets 4 Tabl... UD PRN PO 11/03/16 12:00 12/03/16 11:59 Dextrose (Dextrose 50% 50ML Syringe) 25-50ML OF 50% DW IV FOR... UD PRN IV 11/03/16 12:00 12/03/16 11:59 Glucagon (Glucagon Inj) 1 mg UD PRN SQ 11/03/16 12:00 12/03/16 11:59 Review of Systems Constitutional: + fatigue Respiratory: + dyspnea on exertion, No sputum Cardiovascular: No chest pain Abdomen: + nausea, No pain, No vomiting Genitourinary - Female: No dysuria, No urinary frequency Neurologic: No memory loss, No vertigo Hematologic / Lymphatic: No abnormal bleeding/bruising, No clotting problems Physical Exam Date Time Temp Pulse Resp B/P Pulse Ox O2 Delivery O2 Flow Rate FiO2 11/03/16 15:05 105 20 125/72 86 Non-Rebreather 15.0 11/03/16 14:54 105 22 114/83 88 Non-Rebreather 15.0 11/03/16 14:45 98 20 137/78 89 Non-Rebreather 15.0 11/03/16 14:33 99 22 120/88 88 Non-Rebreather 15.0 11/03/16 14:29 102 22 122/100 88 Non-Rebreather 15.0 11/03/16 14:18 101 20 133/97 87 Non-Rebreather 15.0 11/03/16 14:11 102 22 103/75 86 Non-Rebreather 15.0 11/03/16 14:01 110 22 124/81 87 Non-Rebreather 15.0 11/03/16 13:54 114 22 99/75 89 Non-Rebreather 15.0 11/03/16 13:48 116 22 101/75 86 Room Air 11/03/16 13:43 122 22 97/69 85 Non-Rebreather 15.0 11/03/16 13:38 121 22 133/90 84 Non-Rebreather 15.0 11/03/16 13:31 129 20 124/77 85 11/03/16 13:20 115 24 130/84 88 Nasal Cannula 4.0 11/03/16 12:09 111 11/03/16 11:54 112 20 133/79 89 Nasal Cannula 4.0 11/03/16 11:09 108 18 133/96 90 Nasal Cannula 4.0 11/03/16 10:35 102 24 139/80 88 Nasal Cannula 4.0 11/03/16 10:22 110 24 139/89 Nasal Cannula 2.0 11/03/16 09:23 98 24 147/89 90 Nasal Cannula 2.0 11/03/16 08:35 93 Nasal Cannula 2.0 11/03/16 08:35 119 11/03/16 08:35 86 Room Air 11/03/16 08:32 36.7 126 28 142/87 88 Room Air General Appearance: mild distress Head: normocephalic, atraumatic Eyes: PERRLA, no discharge, EOMI Neck: no tenderness, trachea midline, no stridor Respiratory: breath sounds normal, clear to auscultation Cardiovasular: irregular rate (tachycardia) Abdomen: non tender, normal bowel sounds, no rebound, no masses, no guarding Back: normal inspection, no midline tenderness Upper Extremities: no edema Lower Extremities: no edema Neuro: alert, oriented x 3, normal motor exam Psychiatric: normal affect Laboratory Results Last 24 Hours Test 11/03/16 08:36 11/03/16 09:15 11/03/16 12:00 White Blood Count 8.88 K/uL Red Blood Count 5.02 M/uL Hemoglobin 14.6 g/dL Hematocrit 42.7 % Mean Corpuscular Volume 85.1 fL Mean Corpuscular Hemoglobin 29.1 pg Mean Corpuscular Hemoglobin Concent 34.2 g/dl Platelet Count 197 K/uL Mean Platelet Volume 9.4 fL Neutrophils (%) (Auto) 67.3 % Lymphocytes (%) (Auto) 25.0 % Monocytes (%) (Auto) 6.2 % Eosinophils (%) (Auto) 1.2 % Basophils (%) (Auto) 0.2 % Neutrophils # (Auto) 5.97 K/uL Lymphocytes # (Auto) 2.22 K/uL Monocytes # (Auto) 0.55 K/uL Eosinophils # (Auto) 0.11 K/uL Basophils # (Auto) 0.02 K/uL RDW Standard Deviation 43.1 fL RDW Coefficient of Variation 13.9 % Immature Granulocyte % (Auto) 0.1 % Immature Granulocyte # (Auto) 0.01 K/uL Prothrombin Time 11.0 SECONDS Prothromb Time International Ratio 1.0 Activated Partial Thromboplast Time 24.0 SECONDS Partial Thromboplastin Ratio 0.9 Sodium Level 141 mmol/L Potassium Level 3.8 mmol/L Chloride Level 107 mmol/L Carbon Dioxide Level 23 mmol/L Anion Gap 11.0 mmol/L Blood Urea Nitrogen 20 mg/dl Creatinine 1.10 mg/dl Est Creatinine Clear Calc Drug Dose 67.8 ml/min Estimated GFR () 61.0 Estimated GFR (Non- 52.6 BUN/Creatinine Ratio 18.1 Random Glucose 180 mg/dl Calcium Level 9.1 mg/dl Total Bilirubin 0.8 mg/dl Direct Bilirubin 0.1 mg/dl Aspartate Amino Transf (AST/SGOT) 33 U/L Alanine Aminotransferase (ALT/SGPT) 23 U/L Alkaline Phosphatase 102 U/L Total Creatine Kinase 155 U/L Creatine Kinase MB 2.6 ng/ml Creatine Kinase MB Ratio 1.7 Total Protein 7.4 gm/dl Albumin 3.6 gm/dl Lipase 124 U/L Thyroid Stimulating Hormone (TSH) 3.950 uIu/ml Bedside D-Dimer > 450 ng/mlFEU Bedside Troponin I 0.060 ng/ml BA-Inv-O-Type Natriuretic Peptide 3300 pg/ml Diagnostic Results ULTRASOUND BILATERAL LOWER EXTREMITY VENOUS IMPRESSION: There is no sonographic evidence of deep venous thrombosis identified in the right or left lower extremity. Electronically signed by: Robby Luna M.D. 02/27/2016 11:56 AM CHEST CTA for PULMONARY ARTERIES CT DOSE: 559.46 mGycm HISTORY: Chest pain dyspnea. Abnormal chest x-ray. TECHNIQUE: Multiaxial CT images of the chest were performed following the intravenous administration of contrast to evaluate the pulmonary arteries. Maximal intensity projection images were also obtained. COMPARISON STUDY: 02/27/2016 FINDINGS: Study is positive for bilateral pulmonary emboli. This involves the distal right main pulmonary artery with additional filling defects in the right upper as well as right lower lung. Study is positive for pulmonary emboli involving the left lower as well as left upper lobe pulmonary arterial distributions. Study confirms presence of small parenchymal infiltrate anterior aspect right upper lobe as well as a geographic infiltrative process of the left perihilar region. This confirms the findings seen in the patient's chest film. There is a 6 x 3 cm maximum dimension left perihilar infiltrate.. Focal areas of potential contained nodularity are present. This presumably is inflammatory although should be watched closely. Follow-up to resolution is mandatory IMPRESSION: 1. Study is positive for extensive bilateral pulmonary emboli. 2. 6 x 3 cm left perihilar parenchymal infiltrate, although this should be followed to complete resolution to exclude possibility of underlying persistent nodularity or neoplastic change. Electronically signed by: Sarath Jay M.D. 11/03/2016 10:33 AM Dictated Date/Time: 11/03/2016 10:23 AM Assessment & Plan (1) Tachycardia (2) SRIDHAR on CPAP (3) Diabetes mellitus, type 2 (4) Pulmonary embolism (5) Morbid obesity with BMI of 40.0-44.9, adult Neuro: Fentanyl 50 g when necessary pain Cardiovascular: Tachycardia Secondary to pulmonary embolism Findings consistent with a right heart strain include EKG changes, elevated troponins, elevated BNP Likely vasovagal post-micturition syncope while on commode Patient not hypotensive repeat blood pressure 135/80 Respiratory Chief hypoxic respiratory failure secondary to pulmonary emboli On area embolism: PESI score 125 I discussed with the patient and her regarding the risks and benefits of systemic thrombus lysis versus heparin versus evaluation at tertiary [facility] center for possible catheter directed thrombolysis. In weighing the options the family would like to pursue catheter directed thrombolysis. Not accepting the risks of systemic thrombolysis and felt catheter directed thrombolysis may be better option I feel the best transfer to [facility] would be via helicopter EMS to minimize out of hospital time I discussed the case with several physicians from [facility] from [phone]. The patient was accepted in transfer from the emergency Department to the emergency department at [facility] accepting physician Dr. Glaser. In the meantime the emergency Department will continue a heparin infusion as well as monitor the patient Abdomen: Nothing by mouth Renal: GFR 52 Endocrine: Poorly controlled type 2 diabetes, hyperglycemia Patient is critically ill due to bilateral pulmonary emboli PESI score of 125 placing her at high risk for 30 day mortality grade 4. I have personally spent 60 minutes of critical care time in the direct management of this patient. This is a life/limb threatening event. This includes time spent evaluating patient, direct bedside care, chart review, placing orders, interpretation of diagnostic studies, discussion with consultants, patient, and family members, as well as other required patient management activities. This time is exclusive of all separately billable procedures, and teaching time and separate from and in addition to any other critical care service time.
[2016-11-03 15:48] VITALS: BP 150/78; PULSE 98; O2SAT 93
[2016-11-03] MEDS ORDERED: INSULIN ASPART 100 UNITS/ML 3 ML PEN SC SCH (16:00)
[2016-11-03] MEDS ORDERED: FENTANYL CITRATE INJ 50 MCG/1 ML 2 ML VIAL IV ONE (16:42)
[2016-11-03] MEDS ORDERED: CALCIUM 600MG + VIT D 400 IU TAB PO SCH (21:00)
[2016-11-03] MEDS ORDERED: METOPROLOL TARTRATE 25 MG TAB PO SCH (21:00)
[2016-11-04] MEDS ORDERED: ASPIRIN 81 MG ECTAB PO SCH (09:00)
[2016-11-04] MEDS ORDERED: ATORVASTATIN 20 MG TAB PO SCH (09:00)
[2016-11-04] MEDS ORDERED: LEVOFLOXACIN 500 MG TAB PO SCH (11:00)
[2016-11-08 17:30] LABS: PROTEIN C ACTIVITY** TC 1777X 52 % (70-180); PROTEIN S ACT(FUNCT)**1779X 147 % (60-140)
--- NOTE | 2016-11-21 11:23 | Discharge Summary ---
Discharge Summary Date of Service Nov 21, 2016. Discharge Summary Admission Date: Nov 03, 2016 at 11:39 Discharge Date: Nov 03, 2016 Discharge Disposition: Acute care facility Principal Diagnosis: BILATERAL PULMONARY EMBOLISM Secondary Diagnoses/Problems: PLEASE REFER TO HOSPITAL COURSE BELOW Procedures: CHEST CTA for PULMONARY ARTERIES CT DOSE: 559.46 mGycm HISTORY: Chest pain dyspnea. Abnormal chest x-ray. TECHNIQUE: Multiaxial CT images of the chest were performed following the intravenous administration of contrast to evaluate the pulmonary arteries. Maximal intensity projection images were also obtained. COMPARISON STUDY: 02/27/2016 FINDINGS: Study is positive for bilateral pulmonary emboli. This involves the distal right main pulmonary artery with additional filling defects in the right upper as well as right lower lung. Study is positive for pulmonary emboli involving the left lower as well as left upper lobe pulmonary arterial distributions. Study confirms presence of small parenchymal infiltrate anterior aspect right upper lobe as well as a geographic infiltrative process of the left perihilar region. This confirms the findings seen in the patient's chest film. There is a 6 x 3 cm maximum dimension left perihilar infiltrate.. Focal areas of potential contained nodularity are present. This presumably is inflammatory although should be watched closely. Follow-up to resolution is mandatory IMPRESSION: 1. Study is positive for extensive bilateral pulmonary emboli. 2. 6 x 3 cm left perihilar parenchymal infiltrate, although this should be followed to complete resolution to exclude possibility of underlying persistent nodularity or neoplastic change. Electronically signed by: Sarath Jay M.D. 11/03/2016 10:33 AM Dictated Date/Time: 11/03/2016 10:23 AM Consultations: COORDINATE MEASURING MACHINE OPERATOR DR. REYES Admission Information HPI (per Admitting provider): This is a 66 y/o female with PMHx of PAF not on anticoagulation, diet- controlled Dm 2, SRIDHAR on CPAP and Dyslipidemia who presents to the ED c/o exertional SOB x 1 week. Pt reports that one week ago she developed SOB with exertion. Her sxs are assoc with palpitations, racing heart rate and L shoulder pain. She also mentions a mild prod cough of "creamy" sputum which is chronic and unchanged from baseline. Pt denies any recent surgery or travel. She has no history of blood clot. Pt has a history of PAF on metoprolol and ASA. She is not on any anticoagulation. She follows with cardiology, Sarath Anglin PA-C. Pt has a strong FmHx of CVD. Pt denies fever/chills, diaphoresis, syncope, chest pain, wheezing, abd pain, N/V, bowel or bladder issues, LE edema ,calf pain, lightheadedness/dizziness. In the ED, pt is tachy, dyspneic and hypoxic on room air. Trop 0.06 and EKG + T wave inversions in inf leads. CT chest + extensive bilat PE. Pt is hemodynamically stable and will be admitted for further evaluation and treatment. Physical Exam (per Admitting): General Appearance: WD/WN, no apparent distress, + obese, + pertinent finding (Pt is laying in bed with and niece at bedside) Head: normocephalic, atraumatic Eyes: normal inspection ENT: hearing grossly normal Neck: supple Respiratory/Chest: chest non-tender, lungs clear, normal breath sounds, no respiratory distress Cardiovascular: no edema, no murmur, + tachycardia Abdomen/GI: normal bowel sounds, non tender, soft Back: normal inspection Extremities/Musculoskelatal: normal inspection, no calf tenderness, no pedal edema Neurologic/Psych: alert, normal mood/affect, oriented x 3 Skin: normal color, warm/dry Hospital Course BILATERAL PULMONARY EMBOLISM pt presents with 1 week of exertional SOB assoc with palpitations and racing heart rate -pt was tachy, dyspneic and hypoxic to 88% on room air upon arrival; now saturating around 90% on 4L O2 -afebrile with no leukocytosis -CT chest + extensive bilat PE as well as 6.3 cm L parenchymal infiltrate; possible infarct (most likely) vs. pneumonia vs. neoplasm -complete hypercoagulable workup and echo ordered -started heparin drip -started PO Levaquin to cover possible KAMINI pneumonia -consulted pulmonology, Dr. Fernández - while being observed at the ER, patient had a syncopal episode patient was found in the bathroom, states she was not feeling good, became unresponsive, pulseless, Code blue called CPR performed for about 2 minutes, patient regained consciousness placed on non rebreather became oriented x [address] Reyes discussed management options with patient and family, they have decided to opt for possible catheter directed thrombolysis transfer to [facility] then arranged LEFT SIDED PNEUMONIA - empiric Levaquin ordered - sputum cultures - repeat imaging to confirm resolution MILD TROPONIN ELEVATION -Trop 0.06; likely elevated due to acute PE/demand ischemia from tachycardia -EKG: T wave inversions in inferior leads - echo and cardiac markers ordered PAROXYSMAL AFIB -EKG: sinus rhythm -not on anticoagulation metoprolol and ASA DIET-CONTROLLED DM 2 -recent A1C 6.5 -diabetic diet -ISS ordered SRIDHAR ON CPAP DYSLIPIDEMIA -on statin DVT PROPHYLAXIS -heparin drip given CODE STATUS -FULL CODE per discussion with patient upon admission DISPO transferred to [facility] Total time spent on discharge = This includes examination of the patient, discharge planning, medication reconciliation, and communication with other providers. Discharge Instructions TRANSFERRED TO [facility]
--- NOTE | 2016-11-27 08:08 | PULMONARY CONSULTATION ---
DATE OF CONSULTATION: 11/03/2016 A consultation was ordered on this patient on 11/03/2016 while she was still in the Emergency Department. She ultimately was transferred to a tertiary care center soon after the consultation was requested. Thus, I was not able to complete a consultation on this patient prior to her transfer elsewhere.
== END 2016-11-03 16:43 | disposition short-term general hospital (02) | DRG 175 ==
LOC: CANRESERV → ENRESERVDT → ENRESERVTM → C.EDB 08:27 → C.EDINP 11:39 → EDBEDREQ 13:44 → EDBEDREQSVC 13:44 → CANBEDREQ 15:40
PROVIDERS: ADMIT Internal Medicine; ATTEND Family Medicine
PROC: 5A02115 Assistance with Cardiac Output using Pulsatile Compression, Intermittent (ICD-10-PCS; principal; 2016-11-03)
DX: I26.99 Other pulmonary embolism without acute cor pulmonale (principal); J18.9 Pneumonia, unspecified organism; J96.91 Respiratory failure, unspecified with hypoxia; Z68.41 Body mass index [BMI] 40.0-44.9, adult; I48.91 Unspecified atrial fibrillation; E78.5 Hyperlipidemia, unspecified; G47.33 Obstructive sleep apnea (adult) (pediatric); E66.01 Morbid (severe) obesity due to excess calories; E11.9 Type 2 diabetes mellitus without complications; Z83.3 Family history of diabetes mellitus; Z83.79 Family history of other diseases of the digestive system; Z82.49 Family history of ischemic heart disease and other diseases of the circulatory system; Z83.6 Family history of other diseases of the respiratory system; Z84.1 Family history of disorders of kidney and ureter; Z79.82 Long term (current) use of aspirin; Z79.899 Other long term (current) drug therapy

== ENCOUNTER 2016-11-19 10:20 | Emergency (ER) | payer BC, OTHER ==
[~2016-11-19] VITALS: Ht 170.2 cm; Wt 116.0 kg
[~2016-11-19 10:20] MED LIST changes: -CPR500 PO; -GLUC15002 PO; -PHEN-876 PO; -TAMS0.4C38 PO; -TRAM-10 PO
[2016-11-19 10:25] VITALS: TEMP 36.8; Ht 170.2 cm; Wt 116.0 kg
[2016-11-19 11:12] LABS: COMPLETE YES; EOS % 0.1 %; HEMATOCRIT 41.6 % (37-47); IG% 0.1 %; LYMPH ABS # 0.41 K/uL (1.2-3.4); MEAN CELL VOLUME 84.9 fL (80-100); MEAN CORPUSCULAR HGB CONC 34.1 g/dl (32-36); MEAN PLATELET VOLUME 8.7 fL (7.4-10.4); MONO % 3.7 %; NEUT % 90.1 %; PLATELET COUNT 276 K/uL (130-400)
[2016-11-19 11:30] LABS: BLOOD UREA NITROGEN 16 mg/dl (7-18); BUN/CREATININE RATIO 16.5 (10-20); CALCIUM 8.6 mg/dl (8.5-10.1); CARBON DIOXIDE 26 mmol/L (21-32); CHLORIDE 105 mmol/L (98-107); CREATININE 0.95 mg/dl (0.60-1.20); GLUCOSE 140 mg/dl (70-99); POTASSIUM 3.6 mmol/L (3.5-5.1); SODIUM 142 mmol/L (136-145)
[2016-11-19] MEDS ORDERED: WARF5TAB90 PO (11:44)
[2016-11-19] MEDS ORDERED: WARF7.5T PO (11:44)
[2016-11-19 11:50] LABS: PROTHROMBIN TIME (PATIENT) 21.9 SECONDS (9.0-12.0)
--- NOTE | 2016-11-19 12:08 | EMERGENCY ROOM VISIT NOTE ---
History Report prepared by Love: Dinorah Petersen Under the Supervision of: Dr. Tim Barbosa M.D. First contact with patient: 10:43 Chief Complaint: ILLNESS Stated Complaint: IRREGULAR HEARTBEAT History of Present Illness The patient is a 66 year old female who presents to the Emergency Room with complaints of a constant illness beginning this morning. The patient visited [facility] this morning for nausea, vomiting and diarrhea that started with stomach cramps. She was sent to the ED for an abnormal EKG. The patient states that she had a drink of water on the way here and was able to keep it down and notes that her nausea and vomiting have subsided. She notes a history of blood clots in her lungs and has a Coumadin level of 2.5. The patient reports that she had atrial fibrillation 10 months ago after being diagnosed with an infection. The patient complains of resolved nausea and vomiting, diarrhea, and a fever of 100.1 when she awoke this morning. She denies abdominal pain, eating any bad foods, and being around anyone who is sick. The patient states that she is not diabetic. Source of History: patient Onset: this morning Position: other (global) Timing: constant Associated Symptoms: + diarrhea, + fevers, + nausea, + vomiting, No abdominal pain Note: She denies eating any bad foods, and being around anyone who is sick. Review of Systems All systems have been listed, reviewed, and are negative other than those previously mentioned. Please see Additional Medical History Sheet. Past Medical & Surgical Medical Problems: (1) Diabetes mellitus, type 2 (2) Dyslipidemia (3) History of urinary calculi (4) Morbid obesity with BMI of 40.0-44.9, adult (5) Normal colonoscopy (6) Obesity (BMI 30-39.9) (7) SRIDHAR on CPAP (8) Paroxysmal atrial fibrillation (9) Pulmonary embolism (10) UTI (urinary tract infection) Surgical Problems: (1) H/O cystoscopy (2) History of tonsillectomy (3) History of total abdominal hysterectomy (4) S/P cholecystectomy (5) Status post colonoscopy Family History Diabetes mellitus FH: cancer FH: gallbladder disease FH: heart disease FH: lung disease Hypertension Kidney disease Kidney stones Social History Smoking Status: Never Smoker Alcohol Use: none Drug Use: none Marital Status: Housing Status: lives with significant other Occupation Status: employed Current/Historical Medications Scheduled Aspirin (Aspirin 81), 81 MG PO DAILY Atorvastatin (Lipitor), 20 MG PO DAILY Calcium Carbonate-Vitamin D (Calcium 600/Vitamin D), 1 TAB PO BID Metoprolol Tartrate (Lopressor), 25 MG PO BID Ondasetron Odt (Zofran Odt), 4 MG SL Q6H Warfarin Sodium (Coumadin), 5 MG PO 5XWK Warfarin Sodium (Coumadin), 7.5 MG PO 2XWK Allergies Coded Allergies: Penicillins (Verified Allergy, Intermediate, VIOLENT NOSE BLEEDS, 11/19/16) Meloxicam (Unverified Allergy, Unknown, SWELLING TO EXTREMITY, 11/19/16) Morphine (Verified Adverse Reaction, Intermediate, GI SYMPTOMS, 11/19/16) Codeine (Verified Adverse Reaction, Mild, GI SYMPTOMS, "OUT OF BODY EXPERIENCE", 11/19/16) Physical Exam Vital Signs Date Time Temp Pulse Resp B/P Pulse Ox O2 Delivery O2 Flow Rate FiO2 11/19/16 12:52 81 18 131/62 97 11/19/16 12:15 80 128/58 98 Room Air 11/19/16 10:25 36.8 56 20 125/65 96 Room Air Physical Exam GENERAL: Patient awake, alert, oriented x 3. Patient follows commands. Patient does not appear toxic. Patient is adequately hydrated and well- nourished. SKIN: No erythema, pallor, cyanosis or rash HEENT: Normal head, pupils equal, reactive to light and accommodation. Ears normal. Oral cavity and posterior pharynx appear normal. Neck: Without adenopathy, no neck vein distention. LUNGS: Clear to auscultation. No wheezes, no rales, no rhonchi. HEART: No murmurs. No gallops. No rubs ABDOMEN: No masses, no rebound, no hepatomegaly or splenomegaly. Multiple ecchymotic areas from previous injury, obese, non-tender, no organomegaly, no guarding. EXTREMITIES: No signs of trauma. No pedal or pretibial edema. No calf or thigh tenderness. NEUROLOGIC: Cranial nerves II-XII within normal limits. No gross motor sensory function deficits. Medical Decision & Procedures Laboratory Results 11/19/16 11:00 Red Blood Count 4.90, Mean Corpuscular Volume 84.9, Mean Corpuscular Hemoglobin 29.0, Mean Corpuscular Hemoglobin Concent 34.1, Mean Platelet Volume 8.7, Neutrophils (%) (Auto) 90.1, Lymphocytes (%) (Auto) 6.0, Monocytes (%) (Auto) 3.7, Eosinophils (%) (Auto) 0.1, Basophils (%) (Auto) 0.0, Neutrophils # (Auto) 6.12, Lymphocytes # (Auto) 0.41, Monocytes # (Auto) 0.25, Eosinophils # (Auto) 0.01, Basophils # (Auto) 0.00 11/19/16 11:00 Test 11/19/16 11:00 11/19/16 11:30 White Blood Count 6.80 K/uL (4.8-10.8) Red Blood Count 4.90 M/uL (4.2-5.4) Hemoglobin 14.2 g/dL (12.0-16.0) Hematocrit 41.6 % (37-47) Mean Corpuscular Volume 84.9 fL (80-100) Mean Corpuscular Hemoglobin 29.0 pg (25-34) Mean Corpuscular Hemoglobin Concent 34.1 g/dl (32-36) Platelet Count 276 K/uL (130-400) Mean Platelet Volume 8.7 fL (7.4-10.4) Neutrophils (%) (Auto) 90.1 % Lymphocytes (%) (Auto) 6.0 % Monocytes (%) (Auto) 3.7 % Eosinophils (%) (Auto) 0.1 % Basophils (%) (Auto) 0.0 % Neutrophils # (Auto) 6.12 K/uL (1.4-6.5) Lymphocytes # (Auto) 0.41 K/uL (1.2-3.4) Monocytes # (Auto) 0.25 K/uL (0.11-0.59) Eosinophils # (Auto) 0.01 K/uL (0-0.5) Basophils # (Auto) 0.00 K/uL (0-0.2) RDW Standard Deviation 43.5 fL (36.4-46.3) RDW Coefficient of Variation 14.0 % (11.5-14.5) Immature Granulocyte % (Auto) 0.1 % Immature Granulocyte # (Auto) 0.01 K/uL (0.00-0.02) Anion Gap 11.0 mmol/L (3-11) Est Creatinine Clear Calc Drug Dose 77.7 ml/min Estimated GFR () 72.8 Estimated GFR (Non- 62.9 BUN/Creatinine Ratio 16.5 (10-20) Calcium Level 8.6 mg/dl (8.5-10.1) Troponin I < 0.015 ng/ml (0-0.045) Prothrombin Time 21.9 SECONDS (9.0-12.0) Prothromb Time International Ratio 2.0 (0.9-1.1) Laboratory results as stated above per my review. ECG Indication: nausea Rate (beats per minute): 81 Rhythm: normal sinus Findings: T-wave inversion (V1 - V4), no ectopy Comparison ECG Date: 11/03/16 Change: no significant change ED Course 1045: Past medical records reviewed. The patient was evaluated in room A3. A complete history and physical examination was performed. 1225: I reevaluated the patient. She feels much better and is drinking well. 1230: Upon reevaluation, the patient appeared to have improvement of her symptoms. I discussed today's findings with the patient. She verbalized agreement of the treatment plan. The patient was discharged home. Medical Decision Differential Diagnoses include acute gastroenteritis, dehydration, food poisoning, bowel obstruction. The patient is here after seeking help from a local urgent care. The patient complains primarily of nausea vomiting and diarrhea. She now feels significantly better. Multiple labs were obtained. Please see above. The patient was able to take oral fluids without difficulty. The patient feels well enough to return home. We discussed options regarding diarrhea. We will defer from prescribing medications for the diarrhea at this time. Impression Primary Impression: Nausea vomiting and diarrhea Scribe Attestation The scribe's documentation has been prepared under my direction and personally reviewed by me in its entirety. I confirm that the note above accurately reflects all work, treatment, procedures, and medical decision making performed by me. Departure Information Dispostion Home / Self-Care Prescriptions Ondasetron Odt (ZOFRAN ODT) 4 Mg Tab 4 MG SL Q6H for Nausea, #6 TAB Prov: Tim Barbosa M.D. 11/19/16 Referrals Kristin Bar D.O. (PCP) Forms HOME CARE DOCUMENTATION FORM, IMPORTANT VISIT INFORMATION, WORK / SCHOOL INSTRUCTIONS Patient Instructions My [facility] Additional Instructions Drink at least 3 quarts of liquid over the next 24 hours. Slowly advance your diet. Return here if you're unable to hold down liquids. Take 1 Zofran every 4 hours if needed for nausea. 650 mg of Tylenol every 4 hours as needed for aches, pain or fever. Continue all of your other current medications as prescribed.
[2016-11-19] MEDS ORDERED: ONDA4TAB10 SL (12:31)
[2016-11-19 12:52] VITALS: BP 131/62; PULSE 81; O2SAT 97
== END 2016-11-19 12:53 | disposition home or self-care (01) ==
LOC: C.EDB 10:21 → C.EDA 12:53
DX: R11.2 Nausea with vomiting, unspecified (principal); R19.7 Diarrhea, unspecified; Z86.711 Personal history of pulmonary embolism; E11.9 Type 2 diabetes mellitus without complications; E78.5 Hyperlipidemia, unspecified; E66.9 Obesity, unspecified; G47.33 Obstructive sleep apnea (adult) (pediatric); I48.0 Paroxysmal atrial fibrillation; Z83.3 Family history of diabetes mellitus; Z80.9 Family history of malignant neoplasm, unspecified; Z83.79 Family history of other diseases of the digestive system; Z83.6 Family history of other diseases of the respiratory system; Z82.49 Family history of ischemic heart disease and other diseases of the circulatory system; Z84.1 Family history of disorders of kidney and ureter; Z79.01 Long term (current) use of anticoagulants; Z79.82 Long term (current) use of aspirin; Z79.899 Other long term (current) drug therapy

== ENCOUNTER → 2016-12-20 | Outpatient (CLI) | payer BC, OTHER ==
[~2016-12-20] MED LIST changes: +ONDA4TAB10 SL; +OPTIRAY 320 IV PRN; +WARF5TAB90 PO; +WARF7.5T PO
--- NOTE | 2016-12-20 08:16 | DIAGNOSTIC IMAGING REPORT ---
CHEST CTA for PULMONARY ARTERIES CT DOSE: 567.49 mGy.cm HISTORY: PULMONARY EMBOLISM FOLLOW UP , INFARCTION TECHNIQUE: Multiaxial CT images of the chest were performed following the intravenous administration of contrast to evaluate the pulmonary arteries. Maximal intensity projection images were also obtained. COMPARISON STUDY: Chest CTA 11/03/2016. FINDINGS: Normal caliber thoracic aorta with no evidence for dissection. No pleural or pericardial effusions. The heart is normal in size. The bilateral pulmonary emboli seen on the prior study have almost completely resolved. There are few small filling defects seen within the right lung proximal segmental pulmonary arteries. This is best seen on image 184. No filling defects seen within the left pulmonary arteries to suggest acute or residual pulmonary embolus. The central airways are patent. The left lung airspace opacity has resolved. 4 mm subpleural nodular density within the right upper lobe on image 214. This favors an area of scarring or atelectasis. This is similar to the prior study. No pleural effusions. No pneumothorax. Healing bilateral rib fractures. The visualized liver and spleen are unremarkable. No mediastinal or hilar lymphadenopathy. IMPRESSION: 1. Near complete resolution of the extensive bilateral pulmonary emboli. There are a few small chronic pulmonary emboli remaining within the proximal right upper lobe segmental branches. 2. Complete resolution of the left upper lobe airspace opacity. 3. Stable 4 mm subpleural nodule within the right upper lobe. Please refer to the chart below for recommended follow-up. 4. Healing bilateral rib fractures. Please refer to below summary of Fleischner criteria recommendations for follow-up of incidental CT nodules (Do Christian, Guidelines for management of small pulmonary nodules detected on CT scans: A statement from the Fleischner Society, Radiology 237: [phone].) SOLID NODULES Solitary nodule size: <6 mm * Low risk patients: no follow-up needed * high risk patients: optional CT at 12 months Solitary nodule size: 6-8 mm * Low risk patients: follow-up at 6-12 months, then consider further follow-up at 18-24 months * high risk patients: initial follow-up CT at 6-12 months and then at 18-24 months if no change Solitary nodule size: >8 mm * either low or high risk patients - consider follow-up CT at 3 months, and/or CT-PET, and/or biopsy Multiple nodules size: <6 mm * Low risk patients: no routine follow-up * high risk patients: optional CT at 12 months Multiple nodules size: 6-8 mm * Low risk patients: follow-up at 3-6 months, then consider further follow-up at 18-24 months * high risk patients: follow-up at 3-6 months, then at 18-24 months if no change Multiple nodules size: >8 mm * Low risk patients: follow-up at 3-6 months, then consider further follow-up at 18-24 months * high risk patients: follow-up at 3-6 months, then at 18-24 months if no change Note: newly detected indeterminate nodule in persons 35 years of age or older. * Low risk patients: minimal or absent history of smoking and/or other known risk factors * high risk patients: history of smoking or of other known risk factors (e.g. first degree relative with lung cancer, or exposure to asbestos, radon, uranium) * if a nodule up to 8 mm is partly solid or is ground glass further follow-up is required after 24 months to exclude possible slow growing adenocarcinoma (YUNIEL) SUBSOLID NODULES Solitary pure ground-glass nodule * nodule size <6 mm - no CT follow-up required * nodule size >=6 mm - follow-up CT at 6-12 months, then every 2 years until 5 years Solitary part-solid nodule * nodule size <6 mm - no CT follow-up required * nodule size >=6 mm - follow-up CT at 3-6 months. If unchanged, and solid component remains <6 mm, then annual follow-up for 5 years Multiple subsolid nodules * nodule size <6 mm - follow-up CT at 3-6 months, consider further follow-up at 2 and 4 years if stable * nodule size >=6 mm - follow-up CT at 3-6 months, subsequent management based on the most suspicious nodule(s) Electronically signed by: Pepe Hill M.D. 12/20/2016 8:15 AM Dictated Date/Time: 12/20/2016 8:06 AM
== END | disposition home or self-care (01) ==
LOC: C.CTS 07:41
PROVIDERS: ATTEND Family Medicine
DX: Z09 Encounter for follow-up examination after completed treatment for conditions other than malignant neoplasm (principal); I26.99 Other pulmonary embolism without acute cor pulmonale; R93.8 Abnormal findings on diagnostic imaging of other specified body structures

== ENCOUNTER → 2017-03-05 | Outpatient (CLI) | payer BC, OTHER ==
--- NOTE | 2017-03-05 16:16 | DIAGNOSTIC IMAGING REPORT ---
LEFT LOWER EXTREMITY WITH CLINICAL HISTORY: LEFT FOOT INJURY, SWELLING, HEMATOMA trauma. Pain. TECHNIQUE: Transaxial acquisition with multi axial reformatted images COMPARISON STUDY: None FINDINGS: Considerable soft tissue edematous change and probable hematoma dorsal to the tarsometatarsal joints. Osseous structures show moderate degenerative change. There is bunion deformity distal first metatarsal with mild hallux valgus configuration. No acute bony abnormality is identified. There is no evidence for fracture or dislocation. IMPRESSION: Considerable dorsal soft tissue edematous change with probable hematoma. 2. No evidence for fracture or dislocation. 3. Degenerative change as noted. The above report was generated using voice recognition software. It may contain grammatical, syntax or spelling errors. Electronically signed by: Sarath Jay M.D. 03/05/2017 4:15 PM Dictated Date/Time: 03/05/2017 4:12 PM
== END | disposition home or self-care (01) ==
LOC: C.CTS 15:47
PROVIDERS: ATTEND Nurse Practitioner
DX: S99.921A Unspecified injury of right foot, initial encounter (principal); M79.89 Other specified soft tissue disorders; T14.8 Other injury of unspecified body region; X58.XXXA Exposure to other specified factors, initial encounter

== ENCOUNTER → 2017-07-17 | Outpatient (CLI) | payer BC, OTHER ==
[~2017-07-17] MED LIST changes: -ONDA4TAB10 SL; -OPTIRAY 320 IV PRN
--- NOTE | 2017-07-18 15:59 | MAMMOGRAPHY REPORT ---
BILATERAL DIGITAL SCREENING MAMMOGRAM TOMOSYNTHESIS WITH CAD: 07/17/2017 CLINICAL HISTORY: Routine screening. Patient has no complaints. TECHNIQUE: Breast tomosynthesis in addition to standard 2D mammography was performed. Current study was also evaluated with a Computer Aided Detection (CAD) system. COMPARISON: Comparison is made to exams dated: 07/14/2016 mammogram, 07/12/2015 mammogram, 07/09/2014 m ammogram, 07/08/2013 mammogram, 06/25/2012 mammogram, and 06/22/2011 mammogram - [facility]. BREAST COMPOSITION: The tissue of both breasts is almost entirely fatty. FINDINGS: There is a possible area of architectural distortion in the upper outer middle one third o f the left breast with a single associated punctate calcification. Additional spot compression tomos ynthesis views and possible ultrasound are recommended. There are other scattered benign coarse calcifications in the right breast. No other suspicious mass , architectural distortion or cluster of microcalcifications is seen. IMPRESSION: ACR BI-RADS CATEGORY 0: INCOMPLETE EVALUATION: NEED ADDITIONAL IMAGING EVALUATION The possible area of architectural distortion in the upper outer left breast needs additional evaluat ion. The patient will be called to schedule an appointment. Approximately 10% of breast cancers are not detected with mammography. A negative mammographic report should not delay biopsy if a clinically suggestive mass is present. Delmi Palacios M.D. ay/:07/17/2017 15:31:41 Assembler Truck Trailer: Rossana Gilliam [facility] letter sent: Addl Imaging 0 BI-RADS Code: ACR BI-RADS Category 0: Incomplete Evaluation: Need Additional Imaging Evaluation
== END | disposition home or self-care (01) ==
LOC: C.MAMM 09:24
PROVIDERS: ATTEND Family Medicine
DX: Z12.31 Encounter for screening mammogram for malignant neoplasm of breast (principal); R92.8 Other abnormal and inconclusive findings on diagnostic imaging of breast

== ENCOUNTER → 2017-07-24 | Outpatient (CLI) | payer BC, OTHER ==
--- NOTE | 2017-07-24 13:07 | MAMMOGRAPHY REPORT ---
UNILATERAL LEFT DIGITAL DIAGNOSTIC MAMMOGRAM TOMOSYNTHESIS AND TARGETED LEFT ULTRASOUND: 07/24/2017 CLINICAL HISTORY: 67 year old woman called back from screening mammography for a possible area of arc hitectural distortion in the upper outer middle one third of the left breast. TECHNIQUE: Spot compression left CC and MLO tomosynthesis images were obtained. COMPARISON: Comparison is made to exams dated: 07/17/2017 mammogram, 07/14/2016 mammogram, 07/12/2015 mammogram, 07/09/2014 mammogram, 07/08/2013 mammogram, and 06/25/2012 mammogram - [facility]. BREAST COMPOSITION: The tissue of the left breast is almost entirely fatty. FINDINGS: Supplemental spot compression tomosynthesis views of the left breast demonstrate a focal a symmetry in the upper outer middle one third of the left breast measuring approximately 16 x 18 mm, w ith single associated punctate microcalcifications. No definite persistent architectural distortion is seen on the spot compression tomosynthesis views. When comparing back to prior available mammogra ms, this asymmetry has appeared similar on all available mammograms dating back to at least 1, therefore likely benign. No other suspicious mass, architectural distortion or cluster of microca lcifications is seen. Targeted ultrasound was performed in the lateral left breast. Sonographically normal tissue is seen without a discrete solid or cystic mass. IMPRESSION: ACR-BI-RADS CATEGORY 3: PROBABLY BENIGN, TARGETED ULTRASOUND ACR-BI-RADS CATEGORY 3: PRO BABLY BENIGN A 16 x 18 mm focal asymmetry in the upper outer middle one third of the left breast appears stable da ting back to approximately 2010 based on prior 2-D mammograms, and there is no definite associated ar chitectural distortion on the spot compression tomosynthesis views obtained today. No suspicious son ographic correlate was seen. However, a short interval follow-up left diagnostic tomosynthesis mammo gram and possible repeat ultrasound is recommended to ensure stability in 6 months. These results and recommendations were discussed with the patient and her at the time of the exam. Approximately 10% of breast cancers are not detected with mammography. A negative mammographic report should not delay biopsy if a clinically suggestive mass is present. Delmi Palacios M.D. ay/:07/24/2017 09:59:39 Blockers Skiver: Olivia WELDON(R)(M), [facility] letter sent: Follow Up Recommended 3 BI-RADS Code: ACR-BI-RADS Category 3: Probably Benign Ultrasound BI-RADS: ACR-BI-RADS Category 3: Pr obably Benign
== END | disposition home or self-care (01) ==
LOC: C.MAMM 08:36
PROVIDERS: ATTEND Family Medicine
DX: R92.8 Other abnormal and inconclusive findings on diagnostic imaging of breast (principal)

== ENCOUNTER 2018-12-05 13:27 | Inpatient (IN) ==
[~2018-12-05 13:27] MED LIST changes: -ASPI-435 PO; -ATOR-54 PO; -CALC600T33 PO; -LPR25 PO; +MIDAZOLAM HCL 1 MG/ML 2ML VIAL ONE; -WARF5TAB90 PO; -WARF7.5T PO; +fentaNYL citrate 100 MCG/2 ML VIAL ONE
--- NOTE | 2018-12-05 14:13 | Anesthesiology Consultation ---
Date of Service December 05, 2018 Assessment & Plan Chart Review Chart Review: Acceptable Risk for Surgery (Urgent case) and Patient NOT seen in Pre Admission Testing Consults Requested none ASA [id number] Proposed Anesthesia Anesthesia Type: MAC (VS. GA) Risk / Benefits Reviewed With: PT / POA / Parent / Guardian, Accepts Plan and Informed Consent Obtained History Surgery Operation Date: 12/05/18 08:15 Proposed Procedures p Cystoscopy, Right Stent Placement - Laura Cuevas MD Height/Weight Height: 1.71 m Weight: 123.5 kg Allergies Allergy/AdvReac Type Severity Reaction Status Date / Time Penicillins Allergy Intermediate VIOLENT Verified 12/03/18 21:36 NOSE BLEEDS meloxicam Allergy Unknown SWELLING Unverified 12/03/18 21:36 TO EXTREMITY morphine AdvReac Intermediate GI SYMPTOMS Verified 12/03/18 21:36 codeine AdvReac Mild GI Verified 12/03/18 21:36 SYMPTOMS, "OUT OF BODY EXPERIENCE" Medications Home Medications Medication Instructions Recorded Confirmed Last Taken aspirin [Aspirin Low Dose] 81 mg PO DAILY 11/24/18 12/03/18 11/24/18 atorvastatin 40 mg PO DAILY 11/24/18 12/03/18 11/24/18 calcium carbonate-vitamin D3 1 cap PO BID 11/24/18 12/03/18 11/24/18 [Calcium 600 + D(3)] metoprolol tartrate 25 mg PO BID 11/24/18 12/03/18 11/24/18 warfarin 5 mg PO 4XWK 11/24/18 12/03/18 11/24/18 warfarin 7.5 mg PO 3XWK 11/24/18 12/03/18 11/23/18 acetaminophen [Tylenol Extra 1,000 mg PO QID PRN 12/03/18 12/03/18 12/03/18 18:00 Strength] ondansetron HCl [Zofran] 4 mg PO Q8H PRN #7 tab 12/04/18 Unknown oxycodone 2.5 mg PO Q6H PRN #10 tab 12/04/18 Unknown NPO Date Last Intake of Fluids: 12/05/18 Time Last Intake of Fluids: 13:00 Last Intake of Fluids Comment: Sips of water Date Last Intake of Solids: 12/05/18 Time Last Intake of Solids: 09:00 Last Intake of Solids Comment: Sugar free janusz Past Medical History Medical History Kidney stone Intramuscular hematoma (Acute) SRIDHAR on CPAP (Chronic) Obesity (BMI 30-39.9) (Chronic) Paroxysmal atrial fibrillation (Chronic) Diabetes mellitus, type 2 (Chronic) Dyslipidemia (Chronic) History of urinary calculi (Chronic) Pulmonary embolism Type 2 diabetes mellitus (Chronic) Pulmonary embolism (Resolved) Pt denies having DM2 Pt denies any CP, SOB, GERD symptoms, n/v Exercise / Class Metabolic Activity II 4-5 Yardwork/Stairs/Walk up hill Past Surgical History Surgical History History of total abdominal hysterectomy (Chronic) S/P cholecystectomy (Chronic) History of tonsillectomy (Chronic) H/O cystoscopy (Chronic) Status post colonoscopy (Chronic) Past Anesthesia History No Hx of Anesthesia Complications and No Family Hx of Anesthesia Complications History of PONV History of PONV and Hx of Motion Sickness Social History Smoking Status: Never smoker Do You Dip or Chew Tobacco: No Hx Alcohol Use: No Hx Substance Use: No Physical Exam Vital Signs Last Vital Signs Temp 38 C H 12/05/18 13:44 Pulse 99 H 12/05/18 13:44 Resp 20 12/05/18 13:44 BP 163/72 H 12/05/18 13:44 Pulse Ox 95 12/05/18 13:44 Constitutional + morbidly obese ENMT Mouth: no TMJ abnormality and no TMJ clicking Thyromental Distance: < 3.5 Finger Breadths Mallampati Class: II Neck + short neck and + thick neck; neck extension not limited Respiratory Auscultation: lungs clear to auscultation bilaterally Cardiovascular Rate/Rhythm: regular rate and regular rhythm Psychiatric Orientation: alert and oriented x 3 Testing Electrocardiogram Date: 11/24/18 Findings: + NSR @ (76 bpm) Normal ECG When compared with ECG of 11/19/2016 T wave inversion no longer evident in inferior leads T wave inversion no longer evident in Anterior leads Confirmed by [place] Laboratory Results Laboratory Tests 11/24/18 12/03/18 12/03/18 20:07 22:36 22:36 WBC Hgb Hct Plt Count PT 17.7 H INR 1.8 H APTT 47.5 H* Sodium 138 Potassium Chloride 106 Carbon Dioxide 25 BUN 18 Creatinine 1.08 Glucose 170 H 12/03/18 12/04/18 22:36 00:29 WBC 8.33 Hgb 10.7 L Hct 31.4 L Plt Count 250 PT INR APTT Sodium Potassium 4.0 Chloride Carbon Dioxide BUN Creatinine Glucose
[2018-12-05] MEDS ORDERED: ONDANSETRON INJ 2 MG/ML 2 ML VIAL IV PRN (14:33)
[2018-12-05] MEDS ORDERED: PHENYLEPHRINE 100MCG/ML 5ML SYR IV PRN (14:33)
[2018-12-05] MEDS ORDERED: ePHEDrine sulfate 50 MG/ML AMP IV PRN (14:33)
[2018-12-05] MEDS ORDERED: ATROPINE SULFATE 0.1 MG/ML 10ML SYR IV PRN (14:33)
[2018-12-05] MEDS ORDERED: PROMETHAZINE HCL 12.5 MG in SODIUM CHLORIDE 0.9% 50 ML IV PRN (14:33)
[2018-12-05] MEDS ORDERED: fentaNYL citrate 100 MCG/2 ML VIAL IV PRN (14:33)
[2018-12-05] MEDS ORDERED: HYDROmorphone INJ 1 MG/ML SYRINGE IV PRN (14:33)
[2018-12-05] MEDS ORDERED: PIPERACILLIN/TAZOBACTAM 3.375 GM in DEXTROSE 5% 100 ML IV STA (14:37)
[2018-12-05] MEDS ORDERED: PIPERACILL/TAZOBAC CONSULT ACTIVE PRN (14:37)
[2018-12-05] MEDS ORDERED: MIDAZOLAM HCL 1 MG/ML 2ML VIAL ONE (14:45)
[2018-12-05] MEDS ORDERED: fentaNYL citrate 100 MCG/2 ML VIAL ONE (14:46)
[2018-12-05] MEDS ORDERED: DEXAMETHASONE SOD INJ 4 MG/ML VIAL ONE (14:56)
[2018-12-05] MEDS ORDERED: HYDROmorphone INJ 2 MG/ML SYR/VIAL ONE (14:56)
[2018-12-05] MEDS ORDERED: ESMOLOL HCL INJ 10 MG/ML 10ML VIAL IV ONE (14:56)
[2018-12-05] MEDS ORDERED: PROPOFOL IV EMULSION 10 MG/ML 20 ML VIAL IV ONE (14:56)
[2018-12-05] MEDS ORDERED: raNITIdine HCl 25 MG/ML VIAL IV ONE (14:56)
[2018-12-05] MEDS ORDERED: LIDOCAINE HCL 2% 2 ML VIAL/AMP(20MG/ML) INFIL ONE (14:56)
[2018-12-05] MEDS ORDERED: ONDANSETRON INJ 2 MG/ML 2 ML VIAL ONE (14:56)
--- NOTE | 2018-12-05 15:03 | Operative Report ---
Post Operative Report Pre & Post Diagnosis Operation Date: 12/05/18 08:15 Pre-Op Diagnosis: urinary tract infection; obstructing Right UPJ stone Post-Op Diagnosis: urinary tract infection; obstructing Right UPJ stone Procedure Operation Date: 12/05/18 08:15 Actual Procedures p Cystoscopy, Right Ureteral Stent Placement(Right) - Laura Cuevas MD Surgeon Laura Cuevas MD Histology Aide none Estimated Blood Loss 0 Findings Consistent with Post-Op Diagnosis radio-lucent right upj stone, cloudy urine once wire passed Fluids 300 Specimens urine culture after stent placed Drains 6 fr 24 centimeter double J stent Anesthesia Type MAC Complications none Disposition Accompanied Patient To Recovery: Yes Disposition: Recovery Room Indications obstructing 5mm right upj stone with fever Description of Procedure Patient was sedated and placed in lithotomy position. Her genitals were prepped and draped in sterile fashion. Time out held with team. I placed a 21 fr rigid cystoscope to bladder. The urethra is unremarkable. The UOs are lateral slit shape. Urine is slightly cloudy. I placed a road runner wire up right ureter and placed a 24 centimeter 6 Fr double J stent easily. There is brisk efflux of very cloudy urine after wire placement. I left bladder empty and concluded case. She transferred to recovery under my escort, in stable condition. Plan: Home today Pyridium for dysuria x 3 days flomax daily oral pain meds as needed ASA 3e dirty case 3 seconds fluoro cipro and zosyn antibiotic director of front office I attest to the content of the Intraoperative Record and any orders documented therein. Any exceptions are noted below.
--- NOTE | 2018-12-05 15:04 | Fluoroscopy Report ---
FL retrograde includes kub HISTORY: 68 years-old Female CYSTO right-sided cystourethrogram with stent placement COMPARISON: CT abdomen and pelvis 12/03/2018 TECHNIQUE: Single image of the abdominal right upper quadrant was obtained utilizing 3.3 seconds fluo roscopy time FINDINGS: Single image demonstrates a right ureteral stent within the region of the renal pelvis. The distal po rtion of the stent is not imaged. IMPRESSION: Fluoroscopic assistance as above. Please see procedural report for further details. The above report was generated using voice recognition software. It may contain grammatical, syntax o r spelling errors. Electronically signed by: Jimmy Shell M.D. 12/05/2018 3:03 PM
[2018-12-05] MEDS ORDERED: PIPERACILLIN/TAZOBACTAM 3.375 GM in DEXTROSE 5% 100 ML IV SCH (15:15)
--- NOTE | 2018-12-05 15:19 | Anesthesiology Progress Note ---
Date of Service December 05, 2018 Anesthesia Post Procedure Vital Signs Vital Signs: Temp Pulse Resp BP Pulse Ox 12/05/18 13:44 38 C H 99 H 20 163/72 H 95 Transfer of Care Handoff Completed per policy Notes Mental Status: alert / awake / arousable Patient Amnestic to Procedure: Yes Nausea / Vomiting: adequately controlled Pain: adequately controlled Airway Patency, RR, SpO2: stable & adequate BP & HR: stable & adequate Hydration State: stable & adequate Anesthetic Complications: no major complications apparent and Pt Satisfied with anesthetic care
[2018-12-05] MEDS ORDERED: ACETAMINOPHEN 325 MG TAB PO PRN (15:38)
--- NOTE | 2018-12-05 16:00 | History & Physical Report ---
Date of Service December 05, 2018 Assessment & Plan (1) Right ureteral calculus: (2) Fever: Pt with hx right UPJ 5 mm stone with right hydronephrosis on CT scan on 12/03/18 and had unremarkable UA at that time. Pt seen by Dr Cuevas today in office and pt had recorded T: 39.1C, P: 100, BP: 132/76. Patient was given oral Cipro in office, and then was taken to the OR. S/P R ureteral stent by Dr Cuevas -Pt T: 38, P: 99, R: 20, BP: 163/72, 95% on RA. WBC: 12 -Meets SIRS criteria with urine source -had dose zosyn in OR -pending urine culture -obtain CBC, CMP, lactate, blood cultures (obtained after initial antibiotics given) -cefepime (will change to as pt reports hx epistaxis with PCN, has tolerated cephalosporins in past), vancomycin IV until culture results -IVF -strain urine -monitor CBC (3) Paroxysmal atrial fibrillation: Obtain EKG -Pending INR -continue metoprolol, coumadin -monitor INR (4) Diabetes mellitus, type 2: Diet controlled A1c: 6.6 on 06/2018 -A1c in am -Novolog sliding scale per protocol (5) Dyslipidemia: -continue atorvastatin (6) Pulmonary embolism: H/O PE in past (7) SRIDHAR on CPAP: -CPAP HS DVT Prophylaxis -On coumadin Follows with Dr Bar for routine care Pt was seen with Dr Blakely. See addendum History of Present Illness Chief Complaint: Fever, Ureteral stone Primary Care Provider: Kristin Bar, Pt is 68 y/o F with PMH paroxysmal atrial fibrillation on Coumadin, h/o PE, HTN, dyslipidemia, SRIDHAR on CPAP, DM II, IBS, kidney stone seen in PACU after urgent right ureteral stent by Dr. Cuevas today. Patient seen in ER 12/03/2018 for right flank pain and found to have right UPJ 5 mm stone with right hydronephrosis on CT scan and UA at that time was unremarkable. Patient states developed fever today. She was seen in Dr. Cuevas office and had recorded T: 39.1C, P: 100, BP: 132/76. Patient was given oral Cipro and office, and then was taken to the OR. Patient states was not having as much right flank pain today, denies any noted hematuria, urinary retention, dysuria. Postop patient doing well and is denying any current pain, nausea, vomiting, CP, SOB. Patient with history of urosepsis in 2016 with urine culture in + Pseudomonas, enterococcus, blood culture + E. coli. Pt with hx R hip injection a couple of weeks ago with secondary hematoma to right leg. Denies DAVALOS, diarrhea, constipation, dizziness, syncope, vision changes, neck pain, orthopnea, palpitations, cough, sore throat, choking, otalgia, rhinorrhea, paresthesias, weakness, extremity weakness, rashes. Allergies Allergy/AdvReac Type Severity Reaction Status Date / Time meloxicam Allergy Unknown SWELLING Unverified 12/03/18 21:36 TO EXTREMITY morphine AdvReac Intermediate GI SYMPTOMS Verified 12/03/18 21:36 Penicillins AdvReac Intermediate VIOLENT Verified 12/05/18 14:41 NOSE BLEEDS codeine AdvReac Mild GI Verified 12/03/18 21:36 SYMPTOMS, "OUT OF BODY EXPERIENCE" Home Medications Home Medications Medication Instructions Recorded Confirmed Type aspirin [Aspirin Low Dose] 81 mg PO DAILY 11/24/18 12/05/18 History atorvastatin 40 mg PO DAILY 11/24/18 12/05/18 History calcium carbonate-vitamin D3 1 cap PO DAILY 11/24/18 12/05/18 History [Calcium 600 + D(3)] metoprolol tartrate 25 mg PO BID 11/24/18 12/05/18 History warfarin 5 mg PO 4XWK 11/24/18 12/05/18 History warfarin 7.5 mg PO 3XWK 11/24/18 12/05/18 History acetaminophen [Tylenol Extra 1,000 mg PO QID PRN 12/03/18 12/05/18 History Strength] ondansetron HCl [Zofran] 4 mg PO Q8H PRN #7 tab 12/04/18 12/05/18 Rx oxycodone 2.5 mg PO Q6H PRN #10 tab 12/04/18 12/05/18 Rx Past Med/Surg History Medical History Kidney stone Intramuscular hematoma (Acute) SRIDHAR on CPAP (Chronic) Obesity (BMI 30-39.9) (Chronic) Paroxysmal atrial fibrillation (Chronic) Diabetes mellitus, type 2 (Chronic) Dyslipidemia (Chronic) History of urinary calculi (Chronic) Pulmonary embolism (Chronic) Morbid obesity with BMI of 40.0-44.9, adult (Chronic) Type 2 diabetes mellitus (Chronic) Pulmonary embolism (Resolved) Surgical History History of total abdominal hysterectomy (Chronic) S/P cholecystectomy (Chronic) History of tonsillectomy (Chronic) H/O cystoscopy (Chronic) Status post colonoscopy (Chronic) Family History Sister Stroke Diabetes Coronary heart disease Social History Preferred Language: Croatian Communication Ability: Effective Stitcher Feeder Required: No Beliefs That Will Affect Care: None marital status: Current Living Situation: Spouse current occupational status: retired Other Information That Helps Us Care for You: No Feels Safe at Home: Yes Safety Concerns: Feels Safe At This Time Smoking Status: Never smoker Do You Dip or Chew Tobacco: No Second Hand Exposure: No Tobacco Cessation Education Requested by Patient: No Hx Alcohol Use: No Hx Substance Use: No Review of Systems Review of Systems: All systems reviewed & are unremarkable except as noted in HPI & below Physical Exam Physical Exam: General: no acute distress, obese, non-toxic appearance Head: normocephalic, atraumatic Eyes: PERRL, EOM's intact, conjunctiva non-injected, anicteric ENT: normal inspection external ears, nose, mucous membranes moist Neck: supple, trachea midline Lungs: clear, no respiratory distress, no wheezing/rhonchi/rales CV: RRR, no murmur, no pretibial edema Abd: normal BS, soft, non-tender, no CVA tenderness to palpation Ext: no calf tenderness, R lower leg with blue/green hematoma Neuro: A&O x 3, no focal deficits noted, normal affect Skin: hot, dry Results & Data Vital Signs (Past 12 Hours) Vital Signs Temp Pulse Pulse Resp BP Pulse Ox 12/05/18 15:51 39.3 C H 101 H 22 130/54 L 95 12/05/18 15:39 39.3 C H 95 H 22 139/60 93 12/05/18 15:25 39.3 C H 95 H 24 135/64 95 12/05/18 15:15 98 H 23 126/59 L 100 12/05/18 15:06 39.6 C H 105 H 14 138/63 100 12/05/18 13:44 38 C H 99 H 20 163/72 H 95 Laboratory Results Short CBC 12/05/18 Range/Units 16:05 WBC 12.51 H (4.8-10.8) K/uL Hgb 9.8 L (12.0-16.0) g/dL Hct 29.2 L (37-47) % Plt Count 175 (130-400) K/uL INR: 2.3 Supervising Physician Co-Signing Physician Notes Patient is a 68-year-old female with history of paroxysmal atrial fibrillation on chronic anticoagulation, history of PE, hypertension and other medical problems presents with history of fever and right flank pain. She was found to have a 5 mm stone with right hydronephrosis on CAT scan. Patient underwent urgent right ureteral stent placement by Dr. Cuevas. Patient is seen and examined after the procedure. Patient is doing well currently. She denies any chest pain, shortness of breath, dizziness, nausea, flank pain, dysuria, hematuria. Please review HPI for complete details of presentation. On exam patient is obese, normocephalic atraumatic, lungs are clear to auscultation, S1- S2, tachycardia, no murmur, abdomen soft, nontender, no flank tenderness, no pedal edema, no focal neuro deficits. Patient meets criteria for SIRS. To rule out UTI. Status post ureteral stent. Patient will be started on IV cefepime based on previous urinary cultures growing Pseudomonas and enterococcus. We will also give IV fluids. Urology is on board. Follow-up blood and urine cultures. Monitor INR. May need to hold Coumadin if patient develops significant hematuria. I personally reviewed the record. Patient is interviewed and examined at bedside. Patient's care is coordinated with Mireille Tran PA-C. Please refer to the documentation above for details of patient's presentation and for discussion of other issues.
--- NOTE | 2018-12-05 16:13 | Anesthesiology Progress Note ---
Date of Service December 05, 2018 Anesthesia Post Procedure Vital Signs Vital Signs: Temp Pulse Pulse Resp BP Pulse Ox 12/05/18 15:51 39.3 C H 101 H 22 130/54 L 95 12/05/18 15:39 39.3 C H 95 H 22 139/60 93 12/05/18 15:25 39.3 C H 95 H 24 135/64 95 12/05/18 15:15 98 H 23 126/59 L 100 12/05/18 15:06 39.6 C H 105 H 14 138/63 100 12/05/18 13:44 38 C H 99 H 20 163/72 H 95 Transfer of Care Handoff Completed per policy Notes Mental Status: alert / awake / arousable Patient Amnestic to Procedure: Yes Nausea / Vomiting: adequately controlled Pain: adequately controlled Airway Patency, RR, SpO2: stable & adequate BP & HR: stable & adequate Hydration State: stable & adequate Anesthetic Complications: no major complications apparent
[2018-12-05 16:15] LABS: Hematocrit (blood only) 29.2 % (37-47); Hemoglobin 9.8 g/dL (12.0-16.0); Mean Corpuscular Volume 87.4 fL (80-100); Mean Platelet Volume 8.1 fL (7.4-10.4); Platelet Count 175 K/uL (130-400); RDW Standard Deviation 48.4 fL (36.4-46.3); Red Blood Count 3.34 M/uL (4.2-5.4); White Blood Count 12.51 K/uL (4.8-10.8)
[2018-12-05 16:26] LABS: Mean Corpuscular Hgb Conc 33.6 g/dL (32-36)
[2018-12-05] MEDS ORDERED: GLUCOSE 40% GEL 15 GM TUBE PO PRN (16:26)
[2018-12-05] MEDS ORDERED: CONSULT PHARMACY STA (16:26)
[2018-12-05] MEDS ORDERED: GLUCOSE 10 TABS/TUBE PO PRN (16:26)
[2018-12-05] MEDS ORDERED: CARBOHYDRATES FOR HYPOGLYCEMIA PO PRN (16:26)
[2018-12-05] MEDS ORDERED: DEXTROSE 50% 50 ML SYRINGE IV PRN (16:26)
[2018-12-05] MEDS ORDERED: GLUCAGON FOR INJ 1 MG VIAL SQ PRN (16:26)
[2018-12-05 16:30] LABS: INR 2.3 (0.9-1.1); Prothrombin Time 22.4 Seconds (9.0-12.0)
[2018-12-05] MEDS: ACETAMINOPHEN 325 MG TAB PO PRN (16:35)
[2018-12-05 16:44] LABS: Dohle Bodies 1+; Immature Granulocytes # (auto) 0.07 K/uL (0.00-0.02); Immature Granulocytes % (auto) 0.6 %; Lymphocytes # (auto) 0.33 K/uL (1.2-3.4); Lymphocytes % (auto) 2.6 %; Monocytes # (auto) 0.77 K/uL (0.11-0.59); Monocytes % (auto) 6.2 %; Neutrophils # (auto) 11.34 K/uL (1.4-6.5); Neutrophils % (auto) 90.6 %
[2018-12-05 16:45] LABS: Albumin Level 2.6 gm/dl (3.4-5.0); BUN Creatinine Ratio 15.7 (10-20); Calcium 8.6 mg/dl (8.5-10.1); Est GFR (African American) 47.4; Est GFR (Non-African American) 40.9
[2018-12-05 16:48] LABS: Albumin Globulin Ratio 0.7 (0.9-2); Bilirubin,Total 1.3 mg/dl (0.2-1); Globulin 3.7 gm/dl (2.5-4.0); Total Protein 6.3 gm/dl (6.4-8.2)
[2018-12-05] MEDS ORDERED: VANCOMYCIN CONSULT ACTIVE PRN (16:53)
[2018-12-05] MEDS ORDERED: CEFEPIME CONSULT ACTIVE PRN (16:54)
[2018-12-05] MEDS: LACTATED RINGER'S 1,000 ML IV SCH (17:00)
[2018-12-05] MEDS ORDERED: VANCOMYCIN HCL 2,750 MG in SODIUM CHLORIDE 0.9% 500 ML IV SCH (17:30)
[2018-12-05] MEDS: WARFARIN SOD 5 MG TAB PO SCH (17:47)
[2018-12-05] MEDS: INSULIN ASPART 100 UNITS/ML 3 ML PEN SC SCH ×2 (17:55→20:51)
[2018-12-05] MEDS: CEFEPIME 1,000 MG in SYRINGE 0 ML IV SCH (18:29)
[2018-12-05] MEDS: METOPROLOL TARTRATE 25 MG TAB PO SCH (20:51)
[2018-12-05] MEDS ORDERED: METOPROLOL TARTRATE 25 MG TAB PO SCH (21:00)
[2018-12-06] MEDS: LACTATED RINGER'S 1,000 ML IV SCH ×2 (01:47→12:39)
[2018-12-06] MEDS: CEFEPIME 1,000 MG in SYRINGE 0 ML IV SCH ×2 (06:05→17:44)
[2018-12-06 07:12] LABS: Hematocrit (blood only) 29.2 % (37-47); Hemoglobin 9.6 g/dL (12.0-16.0); Immature Granulocytes # (auto) 0.04 K/uL (0.00-0.02); Immature Granulocytes % (auto) 0.3 %; Lymphocytes # (auto) 0.54 K/uL (1.2-3.4); Lymphocytes % (auto) 4.7 %; Mean Corpuscular Hgb Conc 32.9 g/dL (32-36); Mean Corpuscular Volume 87.4 fL (80-100); Mean Platelet Volume 8.6 fL (7.4-10.4); Monocytes # (auto) 0.45 K/uL (0.11-0.59); Monocytes % (auto) 3.9 %; Neutrophils # (auto) 10.44 K/uL (1.4-6.5); Neutrophils % (auto) 91.1 %; Platelet Count 181 K/uL (130-400); Red Blood Count 3.34 M/uL (4.2-5.4); White Blood Count 11.47 K/uL (4.8-10.8)
[2018-12-06 07:21] LABS: INR 3.3 (0.9-1.1); Prothrombin Time 30.8 Seconds (9.0-12.0)
[2018-12-06 07:27] LABS: Estimated Average Glucose 146 mg/dl; Hemoglobin A1C 6.7 % (4.5-5.6)
[2018-12-06 07:50] LABS: BUN Creatinine Ratio 21.2 (10-20); Calcium 8.9 mg/dl (8.5-10.1); Creatinine Clr Calc Pharmacy 66.2 ml/min; Est GFR (African American) 58.2; Est GFR (Non-African American) 50.3
[2018-12-06] MEDS: CALCIUM 600MG + VIT D 400 IU TAB PO SCH (07:51)
[2018-12-06] MEDS: ASPIRIN 81 MG ECTAB PO SCH (07:51)
[2018-12-06] MEDS: METOPROLOL TARTRATE 25 MG TAB PO SCH ×2 (07:51→20:36)
[2018-12-06] MEDS: ATORVASTATIN 40 MG TAB PO SCH (07:52)
[2018-12-06] MEDS: INSULIN ASPART 100 UNITS/ML 3 ML PEN SC SCH ×4 (07:55→21:16)
[2018-12-06] MEDS ORDERED: ASPIRIN 81 MG CHEW PO SCH (09:00)
[2018-12-06] MEDS ORDERED: ATORVASTATIN 40 MG TAB PO SCH (09:00)
[2018-12-06] MEDS ORDERED: CALCIUM CARBONATE VITAMIN D3 PO SCH (09:00)
--- NOTE | 2018-12-06 09:50 | Pharmacy Report ---
Pharmacy Abx Initial Consult - Date of Service December 06, 2018 - Pharmacy Dosing Scope Date of Consult: 5-2 Consultation requested by: Marc Pharmacy is consulted to initiate vancomycin/cefepime dosing therapy, order appropriate labs and adjust drug dose/frequency. - Subjective The patient is a 68 year old F admitted on 12/05/18 15:38. - Objective Height: 5 ft 7.5 in Weight: 122.8 kg Vital Signs (Past 12hrs): Vital Signs Temp Pulse Pulse Resp BP Pulse Ox 12/06/18 08:23 67 12/06/18 07:26 36.7 C 75 18 135/76 96 12/06/18 04:27 36.5 C 74 20 121/69 96 12/06/18 00:58 62 12/05/18 23:06 36.6 C 66 18 124/73 94 Lab Results (24hrs): Laboratory Tests (24 Hours) 12/06/18 12/06/18 12/05/18 06:50 06:50 16:05 WBC 11.47 H Neut # (Auto) 10.44 H Creatinine 1.13 1.34 H Est Cr Clr Drug Dosing 66.2 56.0 12/05/18 16:05 WBC 12.51 H Neut # (Auto) 11.34 H Creatinine Est Cr Clr Drug Dosing Micro Results: 12/05/18 16:04 Blood Culture - Pending Blood 12/05/18 15:57 Blood Culture - Pending Blood 12/05/18 14:52 Urine Culture - Pending Urine,Straight Cath - Risk Factors for Resistance * History of infection with a multidrug-resistant organism: urosepsis 2016, PA, enterococcus - Assessment & Plan Assessment/Plan: Pharmacy consulted to for vancomycin and cefepime for complicated UTI. Patient now s/p ureteral stent. Blood cultures x 2 are pending. Urine culture is pending. Vancomycin: * Received loading dose of vancomycin 2750 mg (~23 mg/kg) iv x 1 last evening * Started on vancomycin 1500 mg (~13 mg/kg) iv q 16 hrs to achieve estimated tro ugh ~15-20 mcg/ml * Estimated kinetics: t1/2~14 hrs, ke~0.05 hr-1, CrCl ~ 66 ml/min * Will plan to obtain a trough prior to the 1800 dose on 12/07 to ensure therapeutic - note, this is before steady state but due to elevated BMI >35 kg/m2 expect accumulation with vancomycin Cefepime: * 1 gm IV q12 hrs - appropriate for CrCl/UTI indication Pharmacy will continue to follow and will adjust dose/frequency as necessary. Thank you.
[2018-12-06] MEDS ORDERED: VANCOMYCIN HCL 1,500 MG in SODIUM CHLORIDE 0.9% 500 ML IV SCH (10:00)
--- NOTE | 2018-12-06 13:24 | Urology Progress Note ---
Date of Service December 06, 2018 Assessment & Plan (1) Right ureteral calculus: improving after right stent and iv abt will change to PO abt once cultures identified. was e coli in 2016. plan stone removal surgery as outpatient next week. happy she has turned around so quickly. Present on Admission?: Yes Subjective patient feels well. would like to go home. No fevers or chills. BP stable. tolerating PO food. Her right leg old hematoma is sore. Is ambulating halls. Review of Systems Review of Systems: All systems reviewed & are unremarkable except as noted in HPI & below Physical Exam Constitutional: WD/WN, vitals as above + obese Respiratory: normal respiratory effort, lungs clear to auscultation Gastrointestinal (Abdomen): normal bowel sounds, soft, nontender, no hepat osplenomegaly Psychiatric: A+Ox3, euthymic affect Results & Data Vital Signs (Past 12 Hours) Vital Signs Temp Pulse Pulse Resp BP Pulse Ox 12/06/18 11:11 36.6 C 78 18 147/75 H 97 12/06/18 08:23 67 12/06/18 07:26 36.7 C 75 18 135/76 96 12/06/18 04:27 36.5 C 74 20 121/69 96
--- NOTE | 2018-12-06 15:17 | Hospitalist Progress Note ---
Date of Service December 06, 2018 Assessment & Plan (1) Complicated UTI (urinary tract infection): Urine culture E. coli sensitive in isolation pending Complicated UTI in the setting of obstructed right ureteric stone status post stent placement On empiric antibiotic with IV cefepime Antibiotic will be adjusted once sensitivities available ID evaluation requested (2) Gram-negative bacteremia: Due to complicated UTI Blood culture x1: Gram-negative bacilli Continue antibiotic as above, ID evaluation requested (3) Right ureteral calculus: Pt with hx right UPJ 5 mm stone with right hydronephrosis on CT scan on 12/03/18 and had unremarkable UA at that time. Pt seen by Dr Cuevas in office found to be febrile and tachycardic Status post right ureteric stent placed by Dr. Cuevas Right flank pain resolved after procedure Remains afebrile Vitals stable Appreciate input from urology (4) Fever: Secondary to complicated UTI/right-sided obstructed ureteric stone Urine culture: Gram-negative bacilli - -cefepime (will change to as pt reports hx epistaxis with PCN, has tolerated cephalosporins in past), vancomycin IV until culture results -Blood culture 1 bottle gram-negative bacilli ID evaluation requested (5) Paroxysmal atrial fibrillation: Continue metoprolol, on Coumadin (6) Diabetes mellitus, type 2: Diet controlled -Novolog sliding scale per protocol (7) Dyslipidemia: -continue atorvastatin (8) Pulmonary embolism: H/O PE in past On Coumadin (9) SRIDHAR on CPAP: -CPAP HS DVT Prophylaxis -On coumadin Disposition: Discharge home on hold secondary to gram-negative bacteremia We will follow closely, ID evaluation requested Given on finding patient may need long-term antibiotic will defer to ID recommendation (10) Intramuscular hematoma: Secondary to traumatic steroid injection and hip while on Coumadin Monitor H&H Will keep INR on the lower level below 2.5 to allow resolution of hematoma Subjective Patient reports of feeling well, no flank pain Having occasional hematuria, status post right ureteric stent placement Afebrile Normal appetite, no nausea vomiting Physical Exam Constitutional: WD/WN, vitals as above well developed; no acute distress Eyes: PERRL, conjunctivae normal, anicteric sclerae ENMT: external ear and nose normal, oropharynx normal Neck: trachea midline, no thyromegaly Respiratory: normal respiratory effort, lungs clear to auscultation Cardiovascular: RRR, no murmur, no edema Gastrointestinal (Abdomen): normal bowel sounds, soft, nontender, no hepatosplenomegaly Musculoskeletal: Diffuse ecchymosis on right lower extremity from knee to right ankle Skin: Trauma: + hematoma Ecchymosis on right lower extremity Neurologic: PERRL, EOMI, accommodation nl, no face palsy, no dysarthria Psychiatric: A+Ox3, euthymic affect Results & Data Vital Signs (Past 12 Hours) Vital Signs Temp Pulse Pulse Resp BP Pulse Ox 12/06/18 14:57 36.6 C 77 20 128/72 98 12/06/18 11:11 36.6 C 78 18 147/75 H 97 12/06/18 08:23 67 12/06/18 07:26 36.7 C 75 18 135/76 96 12/06/18 04:27 36.5 C 74 20 121/69 96 (1) Diabetes mellitus, type 2 Diabetes mellitus exterminator insulin use: unspecified senior living insulin use st at Diabetes mellitus complication status: with unspecified complications Qualified Code(s): E11.8 - Type 2 diabetes mellitus with unspecified complications (2) Pulmonary embolism Pulmonary embolism type: unspecified Chronicity: chronic Acute cor pulmonale presence: without acute cor pulmonale Qualified Code(s): I27.82 - Chronic pulmonary embolism
[2018-12-06] MEDS: WARFARIN SOD 5 MG TAB PO SCH (16:27)
[2018-12-07] MEDS: ACETAMINOPHEN 325 MG TAB PO PRN ×3 (01:11→20:19)
[2018-12-07] MEDS: CEFEPIME 1,000 MG in SYRINGE 0 ML IV SCH (05:45)
[2018-12-07 06:29] LABS: Hematocrit (blood only) 30.7 % (37-47); Hemoglobin 10.2 g/dL (12.0-16.0); Mean Corpuscular Hgb Conc 33.2 g/dL (32-36); Mean Corpuscular Volume 87.2 fL (80-100); Mean Platelet Volume 8.5 fL (7.4-10.4); Platelet Count 224 K/uL (130-400); RDW Coefficient of Variation 15.4 % (11.5-14.5); RDW Standard Deviation 49.6 fL (36.4-46.3); Red Blood Count 3.52 M/uL (4.2-5.4)
[2018-12-07 07:02] LABS: Creatinine Clr Calc Pharmacy 65.4 ml/min; Est GFR (Non-African American) 49.2
[2018-12-07] MEDS: ATORVASTATIN 40 MG TAB PO SCH (07:37)
[2018-12-07] MEDS: METOPROLOL TARTRATE 25 MG TAB PO SCH ×2 (07:37→20:19)
[2018-12-07] MEDS: CALCIUM 600MG + VIT D 400 IU TAB PO SCH (07:38)
[2018-12-07] MEDS: INSULIN ASPART 100 UNITS/ML 3 ML PEN SC SCH ×4 (08:28→20:23)
[2018-12-07] MEDS: cefTRIAXone SODIUM 2,000 MG in DEXTROSE 5% 50 ML IV SCH (10:40)
[2018-12-07 10:58] LABS: Prothrombin Time 40.1 Seconds (9.0-12.0)
[2018-12-07 11:01] LABS: INR 4.3 (0.9-1.1)
--- NOTE | 2018-12-07 13:51 | Infectious Disease Consult ---
Date of Consultation December 07, 2018 Assessment & Plan (1) Gram-negative bacteremia: 68-year-old female with obstructive uropathy with gram-negative bacteremia, likely Citrobacter infection as recovered from urine. Isolate is fully sensitive, likely can transition to oral antibiotics tomorrow with cephalosporin as long as blood isolate with similar sensitivities. Will discuss further with all involved. Will follow. (2) Complicated UTI (urinary tract infection): History of Present Illness Reason for Consultation: Gram-negative bacteremia Attending Physician: Dinah Ferrari MD History of Present Illness 68-year-old female with history of diabetes mellitus, dyslipidemia, with history of recurrent nephrolithiasis, with previous episode of sepsis associated with obstruction, who was admitted to the hospital December 05 after procedure to remove recurrent right ureteral stone with fever and worsening pain. She underwent emergency ureteral stenting with relief of pain. Has been started on IV ceftriaxone with resolution of fever. Blood cultures now growing gram-negative bacilli. Urine culture growing Citrobacter, and possibly second gram-negative. Patient feeling much better, resting comfortably, denies any significant pain at present. Tolerating antibiotic without apparent difficulty. Allergies Allergy/AdvReac Type Severity Reaction Status Date / Time meloxicam Allergy Unknown SWELLING Unverified 12/03/18 21:36 TO EXTREMITY morphine AdvReac Intermediate GI SYMPTOMS Verified 12/03/18 21:36 Penicillins AdvReac Intermediate VIOLENT Verified 12/05/18 14:41 NOSE BLEEDS codeine AdvReac Mild GI Verified 12/03/18 21:36 SYMPTOMS, "OUT OF BODY EXPERIENCE" Home Medications Home Medications Medication Instructions Recorded Confirmed Type aspirin [Aspirin Low Dose] 81 mg PO DAILY 11/24/18 12/05/18 History atorvastatin 40 mg PO DAILY 11/24/18 12/05/18 History calcium carbonate-vitamin D3 1 cap PO DAILY 11/24/18 12/05/18 History [Calcium 600 + D(3)] metoprolol tartrate 25 mg PO BID 11/24/18 12/05/18 History warfarin 5 mg PO 4XWK 11/24/18 12/05/18 History warfarin 7.5 mg PO 3XWK 11/24/18 12/05/18 History acetaminophen [Tylenol Extra 1,000 mg PO QID PRN 12/03/18 12/05/18 History Strength] ondansetron HCl [Zofran] 4 mg PO Q8H PRN #7 tab 12/04/18 12/05/18 Rx oxycodone 2.5 mg PO Q6H PRN #10 tab 12/04/18 12/05/18 Rx Patient History Medical History Kidney stone Intramuscular hematoma (Acute) SRIDHAR on CPAP (Chronic) Obesity (BMI 30-39.9) (Chronic) Paroxysmal atrial fibrillation (Chronic) Diabetes mellitus, type 2 (Chronic) Dyslipidemia (Chronic) History of urinary calculi (Chronic) Pulmonary embolism (Chronic) Morbid obesity with BMI of 40.0-44.9, adult (Chronic) Type 2 diabetes mellitus (Chronic) Pulmonary embolism (Resolved) Surgical History History of total abdominal hysterectomy (Chronic) S/P cholecystectomy (Chronic) History of tonsillectomy (Chronic) H/O cystoscopy (Chronic) Status post colonoscopy (Chronic) Family History Sister Stroke Diabetes Coronary heart disease Social History Preferred Language: Bermudian Communication Ability: Effective Basket Filler Required: No Beliefs That Will Affect Care: None marital status: Current Living Situation: Spouse current occupational status: retired Other Information That Helps Us Care for You: No Feels Safe at Home: Yes Safety Concerns: Feels Safe At This Time Smoking Status: Never smoker Do You Dip or Chew Tobacco: No Second Hand Exposure: No Tobacco Cessation Education Requested by Patient: No Hx Alcohol Use: No Hx Substance Use: No Review of Systems Review of Systems: All systems reviewed & are unremarkable except as noted in HPI & below Physical Exam Constitutional: WD/WN, vitals as above comfortable; no acute distress Eyes: PERRL, conjunctivae normal, anicteric sclerae ENMT: external ear and nose normal, oropharynx normal Neck: trachea midline, no thyromegaly neck nontender Respiratory: normal respiratory effort, lungs clear to auscultation normal percussion; does not use accessory muscles Cardiovascular: Rate/Rhythm: regular rate and regular rhythm Heart Sounds: normal S1 and normal S2; no gallop, no murmur and no cardiac rub Vessels: normal peripheral pulses; no JVD Gastrointestinal (Abdomen): normal bowel sounds, soft, nontender, no hepatosplenomegaly Musculoskeletal: no cyanosis or clubbing, extremities motor strength 5/5 Spine: thoracic spine normal to inspection and lumbar spine normal to inspection; no cervical spinal tenderness Skin: no rashes, warm and dry normal turgor; no lesions Neurologic: patellar DTR's 2+ bilat, sensation intact no focal motor deficits Psychiatric: A+Ox3, euthymic affect Orientation: cooperative Lymphatic: no cervical or axillary lymphadenopathy no inguinal ly mphadenopathy Results & Data Vital Signs (Past 12 Hours) Vital Signs Temp Pulse Resp BP Pulse Ox 12/07/18 12:00 37.5 C 81 18 154/78 H 100 12/07/18 08:00 36.9 C 71 18 121/69 97 12/07/18 04:00 36.5 C 68 21 112/68 96 Laboratory Results Short CBC 12/07/18 Range/Units 06:18 WBC 12.70 H (4.8-10.8) K/uL Hgb 10.2 L (12.0-16.0) g/dL Hct 30.7 L (37-47) % Plt Count 224 (130-400) K/uL BMP 12/07/18 06:18 Creatinine 1.15 Diagnostic Findings Microbiology 12/05/18 14:52 Urine,Straight Cath Urine Culture - Preliminary Citrobacter koseri Gram negative bacilli 12/05/18 16:04 Blood Blood Culture - Preliminary Gram negative bacilli 12/05/18 15:57 Blood Blood Culture - Preliminary No growth to date. FL retrograde includes kub HISTORY: 68 years-old Female CYSTO right-sided cystourethrogram with stent placement COMPARISON: CT abdomen and pelvis 12/03/2018 TECHNIQUE: Single image of the abdominal right upper quadrant was obtained utilizing 3.3 seconds fluoroscopy time FINDINGS: Single image demonstrates a right ureteral stent within the region of the renal pelvis. The distal portion of the stent is not imaged. IMPRESSION: Fluoroscopic assistance as above. Please see procedural report for further details. The above report was generated using voice recognition software. It may contain grammatical, syntax or spelling errors. Electronically signed by: Jimmy Shell M.D. 12/05/2018 3:03 PM Dictated: 12/05/18 1500
--- NOTE | 2018-12-07 16:36 | Hospitalist Progress Note ---
Date of Service December 07, 2018 Assessment & Plan (1) Complicated UTI (urinary tract infection): Urine culture E. coli sensitive in isolation pending Complicated UTI in the setting of obstructed right ureteric stone status post stent placement On empiric antibiotic with IV cefepime Antibiotic will be adjusted once sensitivities available ID evaluation requested (2) Gram-negative bacteremia: Due to complicated UTI Continue antibiotic as above, ID evaluation requested Gram-negative bacteremia: Presented with obstructed uropathy with gram-negative bacteria: Possible Citrobacter infection source of infection UTI: Urine culture positive for Citrobacter Appreciate input from ID, patient will be continued with IV Rocephinsensitive. Urine culture specimen, Blood culture x1: Gram-negative bacilli- Plan to transition to oral antibiotic tomorrow (3) Right ureteral calculus: Pt with hx right UPJ 5 mm stone with right hydronephrosis on CT scan on 12/03/18 and had unremarkable UA at that time. Pt seen by Dr Cuevas in office found to be febrile and tachycardic Status post right ureteric stent placed by Dr. Cuevas Right flank pain resolved after procedure Remains afebrile Vitals stable Appreciate input from urology (4) Fever: Secondary to complicated UTI/right-sided obstructed ureteric stone Urine culture: Gram-negative bacilli - -cefepime (will change to as pt reports hx epistaxis with PCN, has tolerated cephalosporins in past), vancomycin IV until culture results -Blood culture 1 bottle gram-negative bacilli ID evaluation requested (5) Paroxysmal atrial fibrillation: Continue metoprolol, on Coumadin (6) Diabetes mellitus, type 2: Diet controlled -Novolog sliding scale per protocol (7) Dyslipidemia: -continue atorvastatin (8) Pulmonary embolism: H/O PE in past On Coumadin (9) SRIDHAR on CPAP: -CPAP HS DVT Prophylaxis -On coumadin Disposition: Discharge home on hold secondary to gram-negative bacteremia We will follow closely, ID evaluation requested Given on finding patient may need long-term antibiotic will defer to ID recommendation (10) Intramuscular hematoma: Secondary to traumatic steroid injection and hip while on Coumadin Monitor H&H Will keep INR on the lower level below 2.5 to allow resolution of hematoma Subjective No complaint of flank pain, no fever or chills, no nausea, feels fine Physical Exam Constitutional: WD/WN, vitals as above well developed; no acute distress Eyes: PERRL, conjunctivae normal, anicteric sclerae ENMT: external ear and nose normal, oropharynx normal Neck: trachea midline, no thyromegaly Respiratory: normal respiratory effort, lungs clear to auscultation Cardiovascular: RRR, no murmur, no edema Gastrointestinal (Abdomen): normal bowel sounds, soft, nontender, no hepatosplenomegaly Skin: Trauma: + hematoma Neurologic: PERRL, EOMI, accommodation nl, no face palsy, no dysarthria Psychiatric: A+Ox3, euthymic affect Results & Data Vital Signs (Past 12 Hours) Vital Signs Temp Pulse Pulse Resp BP Pulse Ox 12/07/18 16:24 36.7 C 74 18 117/56 L 99 12/07/18 12:00 37.5 C 81 18 154/78 H 100 12/07/18 08:00 36.9 C 71 18 121/69 97 (1) Diabetes mellitus, type 2 Diabetes mellitus complication status: with unspecified complications Karen betes mellitus skilled nursing insulin use: unspecified skilled nursing insulin use status Qualified Code(s): E11.8 - Type 2 diabetes mellitus with unspecified complications (2) Pulmonary embolism Acute cor pulmonale presence: without acute cor pulmonale Chronicity: chronic Pulmonary embolism type: unspecified Qualified Code(s): I27.82 - Chronic pulmonary embolism
[2018-12-07] MEDS ORDERED: VANCOMYCIN TROUGH ONE (17:30)
[2018-12-08] MEDS: ACETAMINOPHEN 325 MG TAB PO PRN ×3 (03:22→21:59)
[2018-12-08] MEDS: METOPROLOL TARTRATE 25 MG TAB PO SCH ×2 (06:40→19:59)
[2018-12-08] MEDS: CALCIUM 600MG + VIT D 400 IU TAB PO SCH (07:37)
[2018-12-08] MEDS: ATORVASTATIN 40 MG TAB PO SCH (07:37)
[2018-12-08 07:40] LABS: Hematocrit (blood only) 28.7 % (37-47); Hemoglobin 9.5 g/dL (12.0-16.0); Mean Corpuscular Hgb Conc 33.1 g/dL (32-36); Mean Corpuscular Volume 87.2 fL (80-100); Platelet Count 210 K/uL (130-400); RDW Coefficient of Variation 15.7 % (11.5-14.5); RDW Standard Deviation 49.9 fL (36.4-46.3); Red Blood Count 3.29 M/uL (4.2-5.4); White Blood Count 6.44 K/uL (4.8-10.8)
[2018-12-08 07:59] LABS: Prothrombin Time 40.2 Seconds (9.0-12.0)
[2018-12-08 08:02] LABS: INR 4.4 (0.9-1.1)
[2018-12-08 08:07] LABS: Creatinine Clr Calc Pharmacy 81.7 ml/min; Est GFR (African American) 74.7; Est GFR (Non-African American) 64.4
[2018-12-08] MEDS: cefTRIAXone SODIUM 2,000 MG in DEXTROSE 5% 50 ML IV SCH (08:50)
[2018-12-08] MEDS: INSULIN ASPART 100 UNITS/ML 3 ML PEN SC SCH ×4 (08:50→20:00)
--- NOTE | 2018-12-08 09:13 | Urology Progress Note ---
Date of Service December 08, 2018 Assessment & Plan (1) Complicated UTI (urinary tract infection): Doing well with stent. Stable condition for DC to home from point of view. ID input for home abx regmin. Dr. Cuevas office will call to arrange follow up for stone. (2) Right ureteral calculus: Subjective Feeling better today. Min pain with stent. No hem. No dys. Some urge and freq. Urine and Blood cx growing Citrobacter Review of Systems Review of Systems: All systems reviewed & are unremarkable except as noted in HPI & below Physical Exam Constitutional: WD/WN, vitals as above Cardiovascular: RRR, no murmur, no edema Gastrointestinal (Abdomen): normal bowel sounds, soft, nontender, no hepatosplenomegaly Skin: + ecchymosis Results & Data Vital Signs (Past 12 Hours) Vital Signs Temp Pulse Pulse Pulse Resp BP Pulse Ox 12/08/18 07:58 37.1 C 77 17 167/75 H 96 12/08/18 07:10 194 H 12/07/18 23:30 72 12/07/18 23:05 36.5 C 75 18 146/76 H 95
--- NOTE | 2018-12-08 09:25 | Cardiology Consultation ---
Date of Consultation December 08, 2018 Assessment & Plan (1) Wide-complex tachycardia: The patient has a history of paroxysmal atrial fibrillation. The brief episodes of tachycardia today are not suggestive of atrial fibrillation. She is to episodes that are consistent with supraventricular tachycardia, and 2 additional brief 10-second episodes that have a wide complex QRS morphology and are suggestive of nonsustained ventricular tachycardia versus SVT with aberrancy. The patient has a past history of normal LV systolic function. Her most recent echocardiogram found in her outpatient chart dates back to November 2016 when she was admitted to [facility] with unprovoked bilateral pulmonary embolism. Septal flattening and findings consistent with RV pressure/volume overload were noted at that time along with pulmonary hypertension. The patient is in no distress. She has had no recent syncope during this hospital stay or otherwise. Chemistry panel and magnesium level are pending. She is on metoprolol 25 mg twice daily already. Will await results of her chemistry panel prior to altering her beta-ann dose. Update echocardiogram. Patient is to be relocated from room 2552 to the PCU wing. (2) Complicated UTI (urinary tract infection): Pt clinically improved. Continue course of antibiotics. Avoid QT prolonging agents. (3) Subtherapeutic international normalized ratio (INR): Coumadin on hold for INR of 4.4 (4) Intramuscular hematoma: Hold coumadin. Improving per patient. History of Present Illness Attending Physician: Dinah Ferrari MD History of Present Illness Melissa Max is a 68 year old female seen in cardiology consultation per the request of Dr Ferrari for the evaluation of an episode of nonsustained ventricular tachycardia observed on telemetry this am. The patient typically follows with Dr Stubbs and Mr Anglin of our cardiology practice for her history of paroxysmal atrial fibrillation that had initially been diagnosed in February 2016 when she was hospitalized for urinary sepsis at that time. She has a history of unprovoked bilateral pulmonary embolism diagnosed in October 2016, and has therefore been treated with chronic anticoagulation with Coumadin for both of these indications. The patient had been in the emergency department recently on 12/03/2018 for right flank pain was found to have a 5 mm UPJ stone with right hydronephrosis on CT scan. She developed a fever on 12/05/2018 and was seen by urology and therefore cystoscopy was performed with placement of a right ureteral stent. Urine culture was positive for Citrobacter koseri as well as 1 of 2 initial blood cultures. Patient has been treated with antibiotics and has had no fever since the afternoon of 12/05/2018. Repeat blood cultures performed yesterday 12/07/2018 revealed no growth thus far. Patient's blood pressure has been stable with systolic blood pressure readings for the most part in the 120-150 range. Her most recent reading this morning at 758 was 167/75. The patient states that she has been feeling very well since a few hours after her cystoscopy on 12/05. She has been optimistic that she was going to be discharged today. This morning at 6:34 AM and again at 6:42 AM she had episodes of narrow complex tachycardia with rates in the range of 200 bpm. These terminated on their own without intervention. At 6:49 AM she had two 10-second runs of a wide complex tachycardia with QRS morphology different than that was noted on the 2 previous tachycardia episodes, however interestingly the rate was identical. The patient felt these episodes as sensation of palpitations without lightheadedness or dizziness. She states that these are typical of the rare nonsustained palpitations that she feels at home from time to time that she thought were perhaps short episodes of atrial fibrillation. Past Medical History: 1.Unprovoked bilateral PE in October 2016. 2.Paroxysmal atrial fibrillation first diagnosed in February 2016 when hospitalized with sepsis syndrome, UTI source. 3.Hypertension 4.Dyslipidemia 5.Mild bilateral carotid artery disease, less than 50% bilateral internal carotid artery stenosis observed in September 2016. 6.Obstructive sleep apnea, CPAP therapy 7.Obesity 8.GERD 9.Vertigo 10.Ureteral stone 11.Osteoarthritis 12.Family history of strokes in multiple family members Past Surgical History: 1.Cystoscopy, ureteral stent placement 2.Tonsillectomy 3.Total abdominal hysterectomy 4.Cholecystectomy 5.Right heel spur removal 6.Breast biopsy Family History: Father in his early 60s of a CVA; prior history of carotid endarterectomy. Mother fom complications from an infection at a very young age. She had atrial fibrillation. Oldest sister due to complications of kidney cancer. She had a history of myocardial infarction and coronary stent. A second sister with a CVA. Third sister with an [place] in her late 50's. Brother with prostate cancer. Social History: Nonsmoker. to González Max Allergies Allergy/AdvReac Type Severity Reaction Status Date / Time meloxicam Allergy Unknown SWELLING Unverified 12/03/18 21:36 TO EXTREMITY morphine AdvReac Intermediate GI SYMPTOMS Verified 12/03/18 21:36 Penicillins AdvReac Intermediate VIOLENT Verified 12/05/18 14:41 NOSE BLEEDS codeine AdvReac Mild GI Verified 12/03/18 21:36 SYMPTOMS, "OUT OF BODY EXPERIENCE" Home Medications Home Medications Medication Instructions Recorded Confirmed Type aspirin [Aspirin Low Dose] 81 mg PO DAILY 11/24/18 12/05/18 History atorvastatin 40 mg PO DAILY 11/24/18 12/05/18 History calcium carbonate-vitamin D3 1 cap PO DAILY 11/24/18 12/05/18 History [Calcium 600 + D(3)] metoprolol tartrate 25 mg PO BID 11/24/18 12/05/18 History warfarin 5 mg PO 4XWK 11/24/18 12/05/18 History warfarin 7.5 mg PO 3XWK 11/24/18 12/05/18 History acetaminophen [Tylenol Extra 1,000 mg PO QID PRN 12/03/18 12/05/18 History Strength] ondansetron HCl [Zofran] 4 mg PO Q8H PRN #7 tab 12/04/18 12/05/18 Rx oxycodone 2.5 mg PO Q6H PRN #10 tab 12/04/18 12/05/18 Rx Patient History Medical History Kidney stone Intramuscular hematoma (Acute) SRIDHAR on CPAP (Chronic) Obesity (BMI 30-39.9) (Chronic) Paroxysmal atrial fibrillation (Chronic) Diabetes mellitus, type 2 (Chronic) Dyslipidemia (Chronic) History of urinary calculi (Chronic) Pulmonary embolism (Chronic) Morbid obesity with BMI of 40.0-44.9, adult (Chronic) Type 2 diabetes mellitus (Chronic) Pulmonary embolism (Resolved) Surgical History History of total abdominal hysterectomy (Chronic) S/P cholecystectomy (Chronic) History of tonsillectomy (Chronic) H/O cystoscopy (Chronic) Status post colonoscopy (Chronic) Family History Sister Stroke Diabetes Coronary heart disease Social History Preferred Language: Hebrew Communication Ability: Effective Insurance Processor Required: No Beliefs That Will Affect Care: None marital status: Current Living Situation: Spouse current occupational status: retired Other Information That Helps Us Care for You: No Feels Safe at Home: Yes Safety Concerns: Feels Safe At This Time Smoking Status: Never smoker Do You Dip or Chew Tobacco: No Second Hand Exposure: No Tobacco Cessation Education Requested by Patient: No Hx Alcohol Use: No Hx Substance Use: No Review of Systems Review of Systems: The patient has significant ecchymosis over the right thigh, right knee right leg, this stems from hematoma that resulted after she had an intra-articular right hip injection on 11/14/2018. -Otherwise 10 point review systems is reviewed and is negative with the exception of that above Physical Exam Physical Exam: General: no acute distress and stated age Eyes: conjunctiva are pink and non-injected, sclera clear Neck: normal jugular venous pulse, no hepatojugular reflux Chest: normal shape and normal respiratory effort Lungs: clear to auscultation and percussion Cardiac Exam: - regular heart sounds, no murmurs, rubs, or gallops, no jugular venous distention Abdomen: abdomen soft, non-tender, no abnormal masses and no hepatosplenomegaly Extremities: Right lower leg ecchymosis, edema from hematoma, improving over the last few weeks per patient. Neuro:awake, coversant, follows commands, no focal motor deficits Psych: appropriate affect and insight. Results & Data Vital Signs (Past 12 Hours) Vital Signs Temp Pulse Pulse Pulse Resp BP Pulse Ox 12/08/18 07:58 37.1 C 77 17 167/75 H 96 12/08/18 07:10 194 H 12/07/18 23:30 72 12/07/18 23:05 36.5 C 75 18 146/76 H 95 Laboratory Results Cardiac Enzymes 12/08/18 Range/Units 09:17 AST 26 (15-37) U/L Coagulation 12/07/18 12/08/18 Range/Units 10:03 07:30 PT 40.1 H 40.2 H (9.0-12.0) Seconds CBC 12/08/18 Range/Units 07:30 WBC 6.44 (4.8-10.8) K/uL RBC 3.29 L (4.2-5.4) M/uL Hgb 9.5 L (12.0-16.0) g/dL Hct 28.7 L (37-47) % Plt Count 210 (130-400) K/uL Comprehensive Metabolic Panel 12/08/18 12/08/18 Range/Units 07:30 09:17 Sodium 141 (136-145) mmol/L Potassium 3.6 (3.5-5.1) mmol/L Chloride 109 H (98-107) mmol/L Carbon Dioxide 27 (21-32) mmol/L BUN 17 (7-18) mg/dl Creatinine 0.92 0.95 (0.6-1.2) mg/dl Glucose 180 H (70-99) mg/dl Calcium 8.7 (8.5-10.1) mg/dl Direct Bilirubin 0.2 (0-0.2) mg/dl AST 26 (15-37) U/L ALT 25 (12-78) U/L Alkaline Phosphatase 75 (45-117) U/L Total Protein 6.5 (6.4-8.2) gm/dl Albumin 2.6 L (3.4-5.0) gm/dl Intake and Output 12/07/18 12/08/18 12/08/18 22:59 06:59 14:59 Intake Total 200 / 750 300 / 750 70 / 70 Output Total 600 / 600 Balance 200 / 150 -300 / 150 70 / 70 Intake: IV 70 / 70 Rocephin 2,000 mg In D5w 50 ml 70 / 70 @ 100 mls/hr IV DAILY KRANTHI Rx#: [id number] Oral 200 / 680 300 / 680 Output: Urine 600 / 600 Other: # Unmeasured Voids 2 Diagnostic Findings EKG performed today 12/08/2018 at 8:30 AM revealed normal sinus rhythm at 79 bpm, normal EKG, corrected QT interval normal at 435 ms.
[2018-12-08] MEDS ORDERED: LIDOCAINE HCL 1% 20 ML VIAL ONE (09:29)
[2018-12-08 09:44] LABS: Albumin Level 2.6 gm/dl (3.4-5.0); BUN Creatinine Ratio 17.9 (10-20); Bilirubin Direct 0.2 mg/dl (0-0.2); Calcium 8.7 mg/dl (8.5-10.1); Creatinine Clr Calc Pharmacy 79.1 ml/min; Est GFR (African American) 71.8; Potassium 3.6 mmol/L (3.5-5.1)
[2018-12-08 09:47] LABS: Albumin Globulin Ratio 0.7 (0.9-2); Bilirubin,Total 0.9 mg/dl (0.2-1); Globulin 3.9 gm/dl (2.5-4.0); Total Protein 6.5 gm/dl (6.4-8.2)
[2018-12-08] MEDS ORDERED: METOPROLOL TARTRATE 25 MG TAB PO STA (12:00)
[2018-12-08] MEDS ORDERED: POTASSIUM CHLORIDE 10 MEQ TABCR PO ONE (12:30)
--- NOTE | 2018-12-08 12:53 | Hospitalist Progress Note ---
Date of Service December 08, 2018 Assessment & Plan (1) Wide-complex tachycardia: Developed wide-complex tachycardia earlier this morning Patient had minimum symptoms, Patient evaluated by cardiology at bedside, appreciate input Transfer to PCU/coronary care unit Follow mag/potassium level and correct accordingly Ordered for 2D echo Beta-ann dose increased to 37.5 twice daily by cardiology (2) Paroxysmal atrial fibrillation: History of paroxysmal A. fib, Follows with [facility] cardiology, Has been on metoprolol 25 mg p.o. twice daily On chronic anticoagulation with Coumadin Developed supraventricular tachycardia leading to A. fib RVR leading to wide- complex tachycardia earlier today Beta-ann dose increased to 37.5 mg twice daily INR 4.4, Coumadin has been kept on hold Monitoring telemetry Present on Admission?: Yes (3) Pulmonary embolism: H/O PE in in 2017 Chronic anticoagulation with Coumadin INR has been therapeutic since admission, Kept on hold for last 2 days for elevated INR (4) Dyslipidemia: -continue atorvastatin (5) SRIDHAR on CPAP: -CPAP HS (6) Diabetes mellitus, type 2: Diet controlled -Novolog sliding scale per protocol (7) Complicated UTI (urinary tract infection): Urine culture E. coli sensitive in isolation pending Complicated UTI in the setting of obstructed right ureteric stone status post stent placement On empiric antibiotic with IV cefepime Antibiotic will be adjusted once sensitivities available ID evaluation requested (8) Gram-negative bacteremia: Due to complicated UTI Continue antibiotic as above, ID evaluation requested Gram-negative bacteremia: Presented with obstructed uropathy with gram-negative bacteria: Possible Citrobacter infection source of infection UTI: Urine culture positive for Citrobacter Appreciate input from ID, patient will be continued with IV Rocephinsensitive. Urine culture specimen, Blood culture x1: Gram-negative bacilli- Plan to transition to oral antibiotic tomorrow (9) Right ureteral calculus: Pt with hx right UPJ 5 mm stone with right hydronephrosis on CT scan on 12/03/18 and had unremarkable UA at that time. Pt seen by Dr Cuevas in office found to be febrile and tachycardic Status post right ureteric stent placed by Dr. Cuevas Right flank pain resolved after procedure Remains afebrile Vitals stable Appreciate input from urology (10) Fever: Secondary to complicated UTI/right-sided obstructed ureteric stone Urine culture: Gram-negative bacilli-Citrobacter sensitive to Rocephin Antibiotic changed to IV Rocephin, follow repeat cultures ID evaluation requested/appreciate input (11) Intramuscular hematoma: Secondary to traumatic steroid injection and hip while on Coumadin Monitor H&H DVT Prophylaxis INR elevated Disposition: Lives at home, independent ADLs Plan to discharge home when medically stable Subjective Patient developed A. fib RVR/with SVT, 10 seconds of V. tach around 6:30 AM in the morning, Patient felt her heart was beating fast, Nauseous, No complaint of dizzy spells, lightheadedness, no chest heaviness, no shortness of breath Patient reports in his prior episodes of paroxysmal A. fib, always felt nauseous Never had any chest heaviness or discomfort Appreciate input from cardiology Stat labs: Ordered to assess potassium magnesium level Potassium should be above>4, mag level >2 to prevent any ventricular arrhythmia Patient is being transferred to PCU Lopressor dose will be adjusted by cardiology Patient has remained afebrile, denies of any flank pain, Physical Exam Constitutional: WD/WN, vitals as above well developed; no acute distress Eyes: PERRL, conjunctivae normal, anicteric sclerae ENMT: external ear and nose normal, oropharynx normal Neck: trachea midline, no thyromegaly Respiratory: normal respiratory effort, lungs clear to auscultation Cardiovascular: RRR, no murmur, no edema Gastrointestinal (Abdomen): normal bowel sounds, soft, nontender, no hepatosplenomegaly Skin: Trauma: + hematoma Neurologic: PERRL, EOMI, accommodation nl, no face palsy, no dysarthria Psychiatric: A+Ox3, euthymic affect Results & Data Vital Signs (Past 12 Hours) Vital Signs Temp Pulse Pulse Resp BP Pulse Ox 12/08/18 07:58 37.1 C 77 17 167/75 H 96 12/08/18 07:10 194 H (1) Fever Fever type: unspecified Qualified Code(s): R50.9 - Fever, unspecified (2) Diabetes mellitus, type 2 Diabetes mellitus complication status: with unspecified complications Diabetes mellitus group home insulin use: unspecified intermediate accountant insulin use status Qualified Code(s): E11.8 - Type 2 diabetes mellitus with unspecified complications (3) Pulmonary embolism Acute cor pulmonale presence: without acute cor pulmonale Chronicity: chronic Pulmonary embolism type: unspecified Qualified Code(s): I27.82 - Chronic pulmonary embolism
--- NOTE | 2018-12-08 17:06 | Infectious Disease Progress Nt ---
Date of Service December 08, 2018 Assessment & Plan (1) Gram-negative bacteremia: 68-year-old female with obstructive uropathy with complex urinary tract infection with Citrobacter bacteremia. Patient continued on IV antibiotics for now, likely can transition to oral antibiotics in the near future. Will follow. (2) Complicated UTI (urinary tract infection): Subjective Patient seen in follow-up for gram-negative bacteremia with obstructive uropathy with urinary tract infection blood cultures have grown same Citrobacter as in urine. Isolate fully sensitive. Developed rapid A. fib, transfer to monitor reviewed. Offers no new complaints at present, afebrile, tolerating antibiotic without apparent difficulty. Review of Systems Review of Systems: All systems reviewed & are unremarkable except as noted in HPI & below Physical Exam Constitutional: WD/WN, vitals as above comfortable; no acute distress Eyes: PERRL, conjunctivae normal, anicteric sclerae ENMT: external ear and nose normal, oropharynx normal Neck: trachea midline, no thyromegaly neck nontender Respiratory: normal respiratory effort, lungs clear to auscultation normal percussion; does not use accessory muscles Cardiovascular: Rate/Rhythm: + irregularly irregular Heart Sounds: normal S1 and normal S2; no gallop, no murmur and no cardiac rub Vessels: normal peripheral pulses; no JVD Gastrointestinal (Abdomen): normal bowel sounds, soft, nontender, no hepatosplenomegaly Musculoskeletal: no cyanosis or clubbing, extremities motor strength 5/5 Spine: thoracic spine normal to inspection and lumbar spine normal to inspection; no cervical spinal tenderness Skin: no rashes, warm and dry normal turgor; no lesions Neurologic: patellar DTR's 2+ bilat, sensation intact no focal motor deficits Psychiatric: A+Ox3, euthymic affect Orientation: cooperative Lymphatic: no cervical or axillary lymphadenopathy no inguinal lymphadenopathy Results & Data Vital Signs (Past 12 Hours) Vital Signs Temp Pulse Pulse Resp BP BP Pulse Ox 12/08/18 15:17 36.4 C L 78 20 146/74 H 99 12/08/18 07:58 37.1 C 77 17 167/75 H 96 12/08/18 07:10 194 H Laboratory Results Short CBC 12/08/18 Range/Units 07:30 WBC 6.44 (4.8-10.8) K/uL Hgb 9.5 L (12.0-16.0) g/dL Hct 28.7 L (37-47) % Plt Count 210 (130-400) K/uL BMP 12/08/18 12/08/18 07:30 09:17 Sodium 141 Potassium 3.6 Chloride 109 H Carbon Dioxide 27 BUN 17 Creatinine 0.92 0.95 Glucose 180 H Calcium 8.7 Liver Function 12/08/18 Range/Units 09:17 Total Bilirubin 0.9 (0.2-1) mg/dl Direct Bilirubin 0.2 (0-0.2) mg/dl AST 26 (15-37) U/L ALT 25 (12-78) U/L Alkaline Phosphatase 75 (45-117) U/L Albumin 2.6 L (3.4-5.0) gm/dl Diagnostic Findings Microbiology 12/05/18 14:52 Urine,Straight Cath Urine Culture - Final Citrobacter koseri Citrobacter koseri#2 12/05/18 16:04 Blood Blood Culture - Preliminary Citrobacter koseri 12/05/18 15:57 Blood Blood Culture - Preliminary No growth to date.
[2018-12-09 06:23] LABS: INR 3.2 (0.9-1.1); Prothrombin Time 30.3 Seconds (9.0-12.0)
[2018-12-09 06:58] LABS: Creatinine Clr Calc Pharmacy 82.1 ml/min; Est GFR (African American) 75.7; Est GFR (Non-African American) 65.3
[2018-12-09] MEDS: ACETAMINOPHEN 325 MG TAB PO PRN ×3 (07:04→22:47)
[2018-12-09] MEDS: METOPROLOL TARTRATE 25 MG TAB PO SCH (07:19)
[2018-12-09] MEDS: ASPIRIN 81 MG ECTAB PO SCH (07:20)
[2018-12-09] MEDS: ATORVASTATIN 40 MG TAB PO SCH (07:20)
[2018-12-09] MEDS: CALCIUM 600MG + VIT D 400 IU TAB PO SCH (07:20)
[2018-12-09] MEDS: cefTRIAXone SODIUM 2,000 MG in DEXTROSE 5% 50 ML IV SCH (08:46)
[2018-12-09] MEDS: INSULIN ASPART 100 UNITS/ML 3 ML PEN SC SCH ×4 (08:47→20:33)
--- NOTE | 2018-12-09 10:04 | Cardiology Progress Note ---
Date of Service December 09, 2018 Assessment & Plan (1) Wide-complex tachycardia: Brief episodes of narrow complex tachycardia consistent with SVT, wide complex tachycardia consistent with two 10 second salvos of nonsustained ventricular tachycardia or SVT with abberant conduction as the rates were identical to the SVT episodes. Potassium was mildly low and was replaced. Echo with normal biventricular systolic function. No symptoms to suggest ischemia. No recent or past syncope or near syncope. Increase metoprolol to 50 mg BID. Repeat electrolytes. (2) Hematoma of right lower extremity: Continue to hold coumadin. INR 3.2 today. Will discuss with ortho. (3) Complicated UTI (urinary tract infection): s/p cysto, ureter stent. Continue antibiotics. Transition to oral antibiotic at discharge. Repeat cultures without growth thus far. (4) Gram-negative bacteremia: as above (5) Paroxysmal atrial fibrillation: No AF on telemetry. Continue metoprolol. Hold coumadin due to hematoma. Has h/o unprovided PE, so need to limit time off of coumadin, however, given hematoma, need to hold coumadin. Subjective Chief Complaint: follow up tachycardia Subjective: Patient feeling well. Denies fevers. No dysuria. No hematuria this am. No palpitations. Telemetry reveals stable sinus rhythm, no recurrent SVT or wide complex tachycardia. Right lower extremity swollen , ecchycmotic. Physical Exam Constitutional: WD/WN, vitals as above Respiratory: normal respiratory effort, lungs clear to auscultation Cardiovascular: RRR, no murmur, no edema Vessels: no JVD Extremities: + edema (2+ R lower extremity edema, ecchymosis) Neurologic: moves all extremities; no focal motor deficits Results & Data Vital Signs (Past 12 Hours) Vital Signs Temp Pulse Pulse Resp BP BP Pulse Ox 12/09/18 07:54 37.0 C 83 20 167/82 H 99 12/09/18 03:21 36.7 C 89 20 177/85 H 98 12/08/18 22:38 36.7 C 90 21 137/70 97
[2018-12-09 10:21] LABS: Albumin Level 2.4 gm/dl (3.4-5.0); BUN Creatinine Ratio 12.6 (10-20); Calcium 8.3 mg/dl (8.5-10.1); Creatinine Clr Calc Pharmacy 79.5 ml/min; Est GFR (African American) 72.8; Est GFR (Non-African American) 62.8; Magnesium 2.1 mg/dl (1.8-2.4); Potassium 3.8 mmol/L (3.5-5.1)
[2018-12-09 10:23] LABS: Albumin Globulin Ratio 0.6 (0.9-2); Bilirubin,Total 0.8 mg/dl (0.2-1); Globulin 3.7 gm/dl (2.5-4.0); Total Protein 6.1 gm/dl (6.4-8.2)
[2018-12-09] MEDS ORDERED: POTASSIUM CHLORIDE 10 MEQ TABCR PO ONE (12:30)
--- NOTE | 2018-12-09 15:23 | Infectious Disease Progress Nt ---
Date of Service December 09, 2018 Assessment & Plan (1) Gram-negative bacteremia: 68-year-old female with obstructive uropathy with complex urinary tract infection with Citrobacter bacteremia. Patient continued on IV antibiotics for now, likely can transition to oral antibiotics tomorrow if blood cultures remain negative. Will follow. (2) Complicated UTI (urinary tract infection): (3) Citrobacter infection: Subjective Patient seen in follow-up for complicated urinary tract infection with sepsis with Citrobacter. Patient feeling well today, offers no new complaints today. Remains afebrile. Follow-up blood cultures remain negative. Review of Systems Review of Systems: All systems reviewed & are unremarkable except as noted in HPI & below Physical Exam Constitutional: WD/WN, vitals as above comfortable; no acute distress Eyes: PERRL, conjunctivae normal, anicteric sclerae ENMT: external ear and nose normal, oropharynx normal Neck: trachea midline, no thyromegaly neck nontender Respiratory: normal respiratory effort, lungs clear to auscultation normal percussion; does not use accessory muscles Cardiovascular: Rate/Rhythm: + irregularly irregular Heart Sounds: normal S1 and normal S2; no gallop, no murmur and no cardiac rub Vessels: normal peripheral pulses; no JVD Gastrointestinal (Abdomen): normal bowel sounds, soft, nontender, no hepatosplenomegaly Musculoskeletal: no cyanosis or clubbing, extremities motor strength 5/5 Spine: thoracic spine normal to inspection and lumbar spine normal to inspec tion; no cervical spinal tenderness Skin: no rashes, warm and dry normal turgor; no lesions Neurologic: patellar DTR's 2+ bilat, sensation intact no focal motor deficits Psychiatric: A+Ox3, euthymic affect Orientation: cooperative Lymphatic: no cervical or axillary lymphadenopathy no inguinal lymphadenopathy Results & Data Vital Signs (Past 12 Hours) Vital Signs Temp Pulse Pulse Resp BP Pulse Ox 12/09/18 11:08 37.1 C 70 20 137/77 97 12/09/18 08:00 101 H 12/09/18 07:54 37.0 C 83 20 167/82 H 99 Laboratory Results BMP 12/09/18 12/09/18 05:44 05:44 Sodium 141 Potassium 3.8 Chloride 109 H Carbon Dioxide 30 BUN 12 Creatinine 0.91 0.94 Glucose 124 H Calcium 8.3 L Liver Function 05/06/19 Range/Units 05:44 Total Bilirubin 0.8 (0.2-1) mg/dl AST 14 L (15-37) U/L ALT 20 (12-78) U/L Alkaline Phosphatase 68 (45-117) U/L Albumin 2.4 L (3.4-5.0) gm/dl Diagnostic Findings Microbiology 12/07/18 10:30 Blood Blood Culture - Preliminary No growth to date. 12/07/18 10:03 Blood Blood Culture - Preliminary No growth to date. 12/05/18 14:52 Urine,Straight Cath Urine Culture - Final Citrobacter koseri Citrobacter koseri#2 12/05/18 16:04 Blood Blood Culture - Preliminary Citrobacter koseri 12/05/18 15:57 Blood Blood Culture - Preliminary No growth to date.
[2018-12-09] MEDS ORDERED: POLYETHYLENE (MIRALAX) 17 GM PACK PO PRN (16:58)
[2018-12-09] MEDS ORDERED: POLYETHYLENE (MIRALAX) 17 GM PACK PO SCH (17:00)
--- NOTE | 2018-12-09 17:25 | Hospitalist Progress Note ---
Date of Service December 09, 2018 Assessment & Plan (1) Wide-complex tachycardia: Developed wide-complex tachycardia earlier this morning Patient had minimum symptoms, Patient evaluated by cardiology at bedside, appreciate input Transfer to PCU/coronary care unit Follow mag/potassium level and correct accordingly Ordered for 2D echo Beta-ann dose increased to 37.5 twice daily by cardiology (2) Paroxysmal atrial fibrillation: History of paroxysmal A. fib, Follows with [facility] cardiology, Has been on metoprolol 25 mg p.o. twice daily On chronic anticoagulation with Coumadin Developed supraventricular tachycardia leading to A. fib RVR leading to wide- complex tachycardia earlier today Beta-ann dose increased to 37.5 mg twice daily INR 4.4, Coumadin has been kept on hold Monitoring telemetry (3) Pulmonary embolism: H/O PE in in 2017 Chronic anticoagulation with Coumadin INR has been therapeutic since admission, Kept on hold for last 2 days for elevated INR D/W cardiology -plan to transition to Eliquis for difficult to manage INR (4) Dyslipidemia: -continue atorvastatin (5) SRIDHAR on CPAP: -CPAP HS (6) Diabetes mellitus, type 2: Diet controlled -Novolog sliding scale per protocol (7) Complicated UTI (urinary tract infection): Urine culture E. coli sensitive Complicated UTI in the setting of obstructed right ureteric stone status post stent placement On empiric antibiotic treated with IV cefepime ID evaluation requested-appreciate input recommend change to oral Cefnidir /Omnicef 300 mg PO BID (8) Gram-negative bacteremia: Due to complicated UTI Continue antibiotic as above, ID evaluation appreciated Gram-negative bacteremia: Presented with obstructed uropathy with gram-negative bacteria: Possible Citrobacter infection source of infection UTI: Urine culture positive for Citrobacter Appreciate input from ID, patient treated with IV Rocephinsensitive. Urine culture specimen, Blood culture x1: Gram-negative bacilli- repeat blood culture negative grwoth ABx will be changed to pO cefnidir (9) Right ureteral calculus: Pt with hx right UPJ 5 mm stone with right hydronephrosis on CT scan on 12/03/18 and had unremarkable UA at that time. Pt seen by Dr Cuevas in office found to be febrile and tachycardic Status post right ureteric stent placed by Dr. Cuevas Right flank pain resolved after procedure Remains afebrile Vitals stable Appreciate input from urology out pt follow up with Urology for stent removal (10) Fever: Secondary to complicated UTI/right-sided obstructed ureteric stone Urine culture: Gram-negative bacilli-Citrobacter sensitive to Rocephin Antibiotic changed to IV Rocephin, Abx adjusted as above ID evaluation requested/appreciate input (11) Intramuscular hematoma: Secondary to traumatic steroid injection and hip while on Coumadin Monitor H&H DVT Prophylaxis INR elevated Disposition: Lives at home, independent ADLs Plan to discharge home in next 24-48 hrs Subjective Patient seen in follow-up for complicated urinary tract infection with sepsis with Citrobacter. Patient feeling well today, offers no new complaints today. Remains afebrile. Follow-up blood cultures remain negative. Physical Exam Constitutional: WD/WN, vitals as above well developed; no acute distress Eyes: PERRL, conjunctivae normal, anicteric sclerae ENMT: external ear and nose normal, oropharynx normal Neck: trachea midline, no thyromegaly Respiratory: normal respiratory effort, lungs clear to auscultation Cardiovascular: RRR, no murmur, no edema Gastrointestinal (Abdomen): normal bowel sounds, soft, nontender, no hepatosplenomegaly Skin: Trauma: + hematoma Neurologic: PERRL, EOMI, accommodation nl, no face palsy, no dysarthria Psychiatric: A+Ox3, euthymic affect Results & Data Vital Signs (Past 12 Hours) Vital Signs Temp Pulse Pulse Pulse Resp BP BP 12/09/18 15:50 36.8 C 72 18 142/69 H 12/09/18 11:08 37.1 C 70 20 137/77 12/09/18 08:00 101 H 12/09/18 07:54 37.0 C 83 20 167/82 H Pulse Ox 12/09/18 15:50 97 12/09/18 11:08 97 12/09/18 08:00 12/09/18 07:54 99 (1) Fever Fever type: unspecified Qualified Code(s): R50.9 - Fever, unspecified (2) Diabetes mellitus, type 2 Diabetes mellitus complication status: with unspecified complications Diabetes mellitus longterm insulin use: unspecified longterm insulin use status Qualified Code(s): E11.8 - Type 2 diabetes mellitus with unspecified complications (3) Pulmonary embolism Acute cor pulmonale presence: without acute cor pulmonale Chronicity: chronic Pulmonary embolism type: unspecified Qualified Code(s): I27.82 - Chronic pulmonary embolism
[2018-12-09] MEDS ORDERED: DOCUSATE SODIUM 100 MG CAP PO SCH (21:00)
[2018-12-09] MEDS: METOPROLOL TARTRATE 50 MG TAB PO SCH (21:02)
[2018-12-10 07:46] LABS: INR 2.3 (0.9-1.1); Prothrombin Time 22.6 Seconds (9.0-12.0)
[2018-12-10 08:01] LABS: Calcium 8.7 mg/dl (8.5-10.1); Creatinine Clr Calc Pharmacy 88.5 ml/min; Est GFR (African American) 83.4; Est GFR (Non-African American) 71.9; Potassium 3.9 mmol/L (3.5-5.1)
[2018-12-10] MEDS: cefTRIAXone SODIUM 2,000 MG in DEXTROSE 5% 50 ML IV SCH (09:04)
[2018-12-10] MEDS: METOPROLOL TARTRATE 50 MG TAB PO SCH (09:04)
[2018-12-10] MEDS: CALCIUM 600MG + VIT D 400 IU TAB PO SCH (09:05)
[2018-12-10] MEDS: ASPIRIN 81 MG ECTAB PO SCH (09:05)
[2018-12-10] MEDS: ATORVASTATIN 40 MG TAB PO SCH (09:05)
[2018-12-10] MEDS: INSULIN ASPART 100 UNITS/ML 3 ML PEN SC SCH ×2 (09:06→12:51)
[2018-12-10] MEDS: ACETAMINOPHEN 325 MG TAB PO PRN (11:14)
--- NOTE | 2018-12-10 15:18 | Consultation Report ---
DATE OF CONSULTATION: 12/10/2018 CHIEF COMPLAINT: Right thigh hematoma. HISTORY OF PRESENT ILLNESS: The patient is a 68-year-old female who I saw in clinic just about a month ago initially for some right hip pain and some arthritis and bursitis. We put an injection into her greater trochanter bursa and she did pretty well for a couple days. She is on chronic Coumadin and about 5 or 6 days after started to develop pain, discomfort, swelling in her leg. She was seen in the ER and her INR was 6.1. She had an ultrasound done which revealed a thigh hematoma. We saw in clinic shortly thereafter and she was slowly improving. She did have a moderate thigh hematoma, but no tenseness or signs of compartment issues or signs of infection. She was actually scheduled to be seen back in my clinic yesterday, but she was admitted to the hospital for urosepsis due to an obstructed stone in a urinary tract infection and subsequent bacteremia. She has now been treated for this and doing pretty well. They have asked me to see her for her thigh hematoma. Her thigh is doing well. Really minimal discomfort. She has developed some bruising in her lower leg and some swelling in her lower leg. They have stopped her Coumadin and they have converted to Eliquis. PAST MEDICAL HISTORY: As per the admission H and P. OBJECTIVE: VITAL SIGNS: Temperature is 36.9. Vital signs stable. GENERAL: A healthy, pleasant middle-aged female. She was ambulating around to and from the bathroom when I visited her today. She looks completely comfortable. EXTREMITIES: Examination of the right leg reveals no significant bruising or minimal swelling if any of her thigh. She does have some more significant swelling and bruising of her, but below her knee. Her compartments are a little bit swollen, but soft. She can dorsiflex and plantarflex her foot appropriately without any pain at all. She is neurologically intact. LABORATORY DATA: INR today is 2.3. Her INR was just a couple days ago even as high as 4.4. Today, it is 2.3. ASSESSMENT: A 68-year-old white female with a right thigh hematoma due to a supratherapeutic INR. This had nothing to do with injection that she had from a very remote site away from her quad. This hematoma was drained down her leg and caused some swelling in the leg, but this will continue to resolve over time. There are no signs of infection or compartment issues. They have converted her from Coumadin to Eliquis, which I think is a good idea as her Coumadin seemed to be very difficult to manage. I can follow her up as needed. This does not preclude her to have more injection into her hip as they have helped her significantly. No orthopedic intervention is warranted at this point. Any questions can be directed to me at [phone].
--- NOTE | 2018-12-10 16:19 | Cardiology Progress Note ---
Date of Service December 10, 2018 Assessment & Plan (1) Paroxysmal atrial fibrillation: No episodes of atrial fibrillation noted. (2) PSVT (paroxysmal supraventricular tachycardia): Patient had recurrent tachycardia with rate just under 200 bpm last night. In retrospect, I believe the wide-complex tachycardia previously noted was SVT with aberrancy as it was the exact same rate as the narrow complex tachycardia noted just about the same time, and on recurrent palpitation episodes, the narrow tachycardia was observed. The patient's metoprolol has been increased to 50 mg twice daily. Electrolytes are ideally controlled. Normal biventricular systolic function noted. Continue metoprolol, if she has breakthrough prolonged episodes of SVT, EP consultation for consideration of catheter ablation could be considered in the future. (3) Hematoma of right lower extremity: The patient is on anticoagulation for both past unprovoked bilateral hemodynamically significant pulmonary embolism with transient right ventricular strain noted on echocardiogram during her admission for the pulmonary embolism but [facility] several years ago. She is also on the anticoagulation due to paroxysmal atrial fibrillation. Her INRs have been difficult to manage with labile readings. She is recently had significant spontaneous hematoma of the right lower extremity. We will transition her from Coumadin to Eliquis 5 mg twice daily after her INR is less than 2. (4) Complicated UTI (urinary tract infection): Noted gram-negative bacteremia. Status post ureter stent with resolution of fever. Discharge on oral antibiotics. Subjective Chief complaint: Follow-up tachycardia Subjective: Patient seen and examined earlier this morning. This is a late entry as I was delayed in completing her progress note. Telemetry revealed several brief episodes of narrow complex tachycardia with rate in the range of 190 bpm at 2251 last night 12/09/2018. The patient felt these. They went away however very quickly. No recurrence of wide-complex tachycardia. The patient's right lower extremity ecchymosis and swelling is mildly improved. Physical Exam Physical Exam: General: no acute distress and stated age Eyes: conjunctiva are pink and non-injected, sclera clear Neck: normal jugular venous pulse, no hepatojugular reflux Chest: normal shape and normal respiratory effort Lungs: clear to auscultation and percussion Cardiac Exam: - regular heart sounds, no murmurs, rubs, or gallops, no jugular venous distention Abdomen: abdomen soft, non-tender, no abnormal masses and no hepatosplenomegaly Extremities: Right lower extremity ecchymosis, plus lower extremity edema Neuro:awake, coversant, follows commands, no focal motor deficits Psych: appropriate affect and insight. Results & Data Vital Signs (Past 12 Hours) Vital Signs Temp Pulse Pulse Pulse Resp BP BP 12/10/18 13:10 36.9 C 84 79 18 137/77 149/73 H 12/10/18 08:07 36.9 C 84 18 149/73 H 12/10/18 07:30 75 Pulse Ox 12/10/18 13:10 96 12/10/18 08:07 96 12/10/18 07:30
--- NOTE | 2018-12-11 14:43 | Discharge Summary ---
Date of Service December 11, 2018 Admission HPI Per Admitting Provider Pt is 68 y/o F with PMH paroxysmal atrial fibrillation on Coumadin, h/o PE, HTN, dyslipidemia, SRIDHAR on CPAP, DM II, IBS, kidney stone seen in PACU after urgent right ureteral stent by Dr. Cuevas today. Patient seen in ER 12/03/2018 for right flank pain and found to have right UPJ 5 mm stone with right hydronephrosis on CT scan and UA at that time was unremarkable. Patient states developed fever today. She was seen in Dr. Cuevas office and had recorded T: 39.1C, P: 100, BP: 132/76. Patient was given oral Cipro and office, and then was taken to the OR. Patient states was not having as much right flank pain today, denies any noted hematuria, urinary retention, dysuria. Postop patient doing well and is denying any current pain, nausea, vomiting, CP, SOB. Patient with history of urosepsis in 2016 with urine culture in + Pseudomonas, enterococcus, blood culture + E. coli. Pt with hx R hip injection a couple of weeks ago with secondary hematoma to right leg. Denies DAVALOS, diarrhea, constipation, dizziness, syncope, vision changes, neck pain, orthopnea, palpitations, cough, sore throat, choking, otalgia, rhinorrhea, paresthesias, weakness, extremity weakness, rashes. Principal Diagnosis COMPLICATED UTI/WIDE COMPLEX TACHYCARDIA Discharge Exam Constitutional WD/WN, vitals as above well developed; no acute distress Eyes PERRL, conjunctivae normal, anicteric sclerae ENMT external ear and nose normal, oropharynx normal Neck trachea midline, no thyromegaly Respiratory normal respiratory effort, lungs clear to auscultation Cardiovascular RRR, no murmur, no edema Gastrointestinal (Abdomen) normal bowel sounds, soft, nontender, no hepatosplenomegaly Skin Trauma: + hematoma Neurologic PERRL, EOMI, accommodation nl, no face palsy, no dysarthria Psychiatric A+Ox3, euthymic affect Discharge Data Allergies Allergy/AdvReac Type Severity Reaction Status Date / Time meloxicam Allergy Unknown SWELLING Verified 12/13/18 08:44 TO EXTREMITY morphine AdvReac Intermediate GI SYMPTOMS Verified 12/13/18 08:44 Penicillins AdvReac Intermediate VIOLENT Verified 12/13/18 08:44 NOSE BLEEDS codeine AdvReac Mild GI Verified 12/13/18 08:44 SYMPTOMS, "OUT OF BODY EXPERIENCE" Consultations 12/05/18 15:03 Consult Hospitalist Routine 12/05/18 16:26 Consult Urology Routine 12/06/18 19:29 Consult Infectious Diseases Routine 12/08/18 08:22 Consult Cardiology Routine 12/09/18 14:59 Consult Orthopedic Surgery Routine 12/10/18 09:39 Consult Case Management - Discharge Planning Routine Procedures Performed Operation Date: 12/05/18 08:15 Actual Procedures p Cystoscopy, Right Ureteral Stent Placement(Right) - Laura Cuevas MD Ordered Studies 12/05/18 FL retrograde includes kub Routine Hospital Course (1) Wide-complex tachycardia: Developed wide-complex tachycardia resolved after adjustment of beta ann no further episode pt does not have any symptoms appreciate input form Cardiology 2D echo shows Beta-ann dose increased to 50 twice daily by cardiology abx changed to Eliquis (2) Paroxysmal atrial fibrillation: History of paroxysmal A. fib, Follows with [facility] cardiology, Has been on metoprolol 25 mg p.o. twice daily dose increased to 50 mg BID On chronic anticoagulation with Coumadin Coumadin was kept on for elevated INR /left lower ext hematoma per Cardiology will change anticoagulation to Eliquis pt is agreeable (3) Pulmonary embolism: H/O PE in in 2017 Chronic anticoagulation with Coumadin anticoagulation changed to pO eliquis (4) Dyslipidemia: -continue atorvastatin (5) SRIDHAR on CPAP: -CPAP HS (6) Diabetes mellitus, type 2: Diet controlled -Novolog sliding scale per protocol (7) Complicated UTI (urinary tract infection): Urine culture Citrobacter sensitivity available Complicated UTI in the setting of obstructed right ureteric stone status post stent placement was on empiric antibiotic with IV cefepime ID evaluation requested-appreciate input -Abx changed to Cefnidir (8) Gram-negative bacteremia: Due to complicated UTI Continue antibiotic as above, ID evaluation requested Gram-negative bacteremia: Presented with obstructed uropathy with gram-negative bacteria: Citrobacter infection source of infection UTI: Urine culture positive for Citrobacter Appreciate input from ID, patient will be continued with IV Rocephinsensitive. Urine culture specimen, Blood culture x1: Gram-negative bacilli- repeat Blood culture negative will be dischanged with PO Abx Cefnidr (9) Right ureteral calculus: Pt with hx right UPJ 5 mm stone with right hydronephrosis on CT scan on 12/03/18 and had unremarkable UA at that time. Pt seen by Dr Cuevas in office found to be febrile and tachycardic sent to [facility] [place] for admission Status post right ureteric stent placed by Dr. Cuevas Right flank pain resolved after procedure Remains afebrile Vitals stable Appreciate input from urology will be discharged with PO Cefnidir (10) Fever: Secondary to complicated UTI/right-sided obstructed ureteric stone Urine culture: Gram-negative bacilli-Citrobacter sensitive to Rocephin Antibiotic changed PO Cefnidir - ID evaluation requested/appreciate input (11) Intramuscular hematoma: Secondary to traumatic steroid injection and hip while on Coumadin Coumadin kept on hold Eliquis will be resumed in next 2-3 days DVT Prophylaxis eliquis Disposition: stable to be discharged home today Total Time Total Time Spent Total Time Spent (In Minutes): approx 45 mins Total Time Includes: Examination of the Patient, Discharge Planning, Medication Reconciliation and Communication With Other Providers Discharge Plan Discharge Items Patient Disposition: Home - Self-Care Reason For Visit: OBSTRUCTING RENAL CALCULI Discharge Diagnosis: OBSTRUCTED RIGHT RENAL STONE, STATUS POST URETERIC STENT PLACEMENT, E. COLI URINARY TRACT INFECTION, ATRIAL FIBRILLATION, HISTORY OF PE ON COUMADIN Discharge Goals: Decrease discomfort, Diagnostic testing and Therapeutic intervention Activity: Resume your previous activity Non-emergency contact: Primary Care Provider Call non-emergency contact if: you have any medication questions Follow-up/Referrals: Kristin Bar DO [Primary Care Provider] - 12/16/18 10:20 am Sarath Anglin [Family Provider] - Laura Cuevas MD [Physician] - Diet: Heart Healthy Addtl Provider Instructions: HOSPITAL FOLLOW UP WITH DR DE ANDA Sunday12/16/18 @ 10: 20 AM APPOINTMENT ON 12/20/18 IS CANCELLED CARDIOLOGY FOLLOW UP IN 2-3 WEEKS, OFFICE WILL CALL WITH APPOINTMENT STOP TAKING COUMADIN NEED TO START TAKING ELIQUIS 5 MG TWICE DAILY FROM Sunday12/12/18 PLEASE NOTIFY CARDIOLOGY OFFICE PRIOR ANY PROCEDURE REGARDING RECOMMENDATION FOR HOLDING ELIQUIS RETURN TO ER WITH ANY COMPLAIN OF CHEST PAIN /NAUSEA /RAPID HEART RATE FOLLOW UP WITH UROLOGY DR CUEVAS IN 1 WEEK FOR URETERIC STENT REMOVAL AND STONE EXTRACTION COMPLETE ANTIBIOTIC FOR TOTAL 2 WEEKS MAY TAKE PYRIDIUM NEEDED FOR BURNING /PAIN SENSATION WITH URINATION Prescriptions: New metoprolol tartrate [Lopressor] 50 mg tablet 50 mg PO BID Qty: 90 RF: 4 cefdinir 300 mg capsule 300 mg PO BID 14 Days Qty: 28 RF: 0 phenazopyridine [Pyridium] 100 mg tablet 100 mg PO Q8H PRN (Reason: pain) Qty: 30 RF: 2 Eliquis 5 mg tablet 5 mg PO BID 30 Days Qty: 60 RF: 0 Continued atorvastatin 40 mg tablet 40 mg PO DAILY RF: 0 aspirin [Aspirin Low Dose] 81 mg Tablet,Delayed Release (Dr/Ec) 81 mg PO DAILY RF: 0 Calcium 600 + D(3) 600 mg calcium- 200 unit Capsule 1 cap PO DAILY RF: 0 acetaminophen [Tylenol Extra Strength] 500 mg Tablet 1,000 mg PO QID PRN (Reason: Pain) RF: 0 oxycodone 5 mg tablet 2.5 mg PO Q6H PRN (Reason: pain) Qty: 10 RF: 0 ondansetron HCl [Zofran] 4 mg tablet 4 mg PO Q8H PRN (Reason: nausea and vomiting) Qty: 7 RF: 0 Discontinued warfarin 5 mg Tablet 5 mg PO 4XWK RF: 0 warfarin 5 mg Tablet 7.5 mg PO 3XWK RF: 0 metoprolol tartrate 25 mg Tablet 25 mg PO BID RF: 0 Stand-Alone Forms: [facility]/Other Patient Handouts: Diabetes Meal Planning Discharge Orders: Discharge Order (Routine); Ordered 12/10/18 Ordered By: Dinah Ferrari Admission Data Admit Date/Time: 12/07/18 16:34 Attending Provider: Dinah Ferrari Admit Provider: Wander Blakely Primary Care Provider: Kristin Bar Other Providers: Deon Murray ; Richard Mckeon ; Alvarez Hong ; Lexie Costa ; Maeve Sutton ; Elvira Be ; Ava Man ; Cedric Vu S ; Arnold Jacobs ; Mukund Linda ; Renny Hewitt ; Josephine Matamoros S ; Dinah Ferrari ; Devora Carlton ; Wander Blakely ; Vamshi Andujar ; Mireille Tran ; Jose Alfredo Cartagena ; Felicia Pickard. ; Vamshi Serrano ; Angeli Arias ; Laura Cuevas ; Jaiden Little. ; Don Stevens ; Vini Roth ; Enrique Caldwell ; Josh Sherwood ; Ben Stubbs ; Sarath Anglin ; Lynnette Neal ; Eneida Valentin ; Vini Man. Service: Telemetry Other Interventions: Discharge Summary Assessment (RN) Last Done: 12/10/18 13:10 DC Date/Time DO NOT enter until pt leaves facility: 12/10/18 14:20
== END 2018-12-10 14:20 | disposition home or self-care (01) | DRG 854 ==
LOC: 2W 13:27 → ASU 13:27 → 2S 12-08 11:15

== ENCOUNTER 2024-08-12 04:55 | Observation (INO) ==
--- NOTE | 2024-07-15 15:52 | PAT Medication Instructions ---
Medication Instructions Date of Service July 15, 2024 Home Medications Medication Instructions Recorded metoprolol tartrate 50 mg tablet 50 mg PO BID #90 tabs 12/10/18 (Lopressor) aspirin 81 mg tablet,delayed release (Fareed Low Dose Aspirin) 81 mg PO DAILY atorvastatin 40 mg tablet 40 mg PO HS acetaminophen 500 mg tablet (Tylenol Extra Strength) 1,000 mg PO UD PRN metoprolol tartrate 50 mg tablet (Lopressor) 50 mg PO BID empagliflozin 25 mg tablet (Jardiance) 25 mg PO QAM hydrochlorothiazide 12.5 mg capsule 25 mg PO QAM magnesium citrate [SlowMag Muscle Recovery] 0 mg PO 3XWK metformin 500 mg tablet 500 mg PO QAM vibegron 75 mg tablet (Gemtesa) 75 mg PO QAM omeprazole 40 mg capsule,delayed release 20 mg PO QAM apixaban 5 mg tablet (Eliquis) 5 mg PO BID losartan 50 mg tablet (Cozaar) 50 mg PO QAM montelukast 10 mg tablet (Singulair) 10 mg PO QAM STOP 3 days before surgery empagliflozin 25 mg tablet (Jardiance) 25 mg PO QAM Continue as directed acetaminophen 500 mg tablet (Tylenol Extra Strength) 1,000 mg PO UD PRN(if needed) ASK your prescriber and surgeon aspirin 81 mg tablet,delayed release (Fareed Low Dose Aspirin) 81 mg PO DAILY apixaban 5 mg tablet (Eliquis) 5 mg PO BID(in order for spinal or epidural anesthesia, Eliquis needs to be stopped 72 hours/3 days before surgery. Please check if okay with doctor that prescribes this to you) DO NOT take the morning of surgery hydrochlorothiazide 12.5 mg capsule 25 mg PO QAM magnesium citrate [SlowMag Muscle Recovery] 0 mg PO 3XWK metformin 500 mg tablet 500 mg PO QAM vibegron 75 mg tablet (Gemtesa) 75 mg PO QAM losartan 50 mg tablet (Cozaar) 50 mg PO QAM Take morning of surgery With a small sip of water, OTHERWISE NOTHING TO EAT OR DRINK AFTER MIDNIGHT: metoprolol tartrate 50 mg tablet (Lopressor) 50 mg PO BID omeprazole 40 mg capsule,delayed release 20 mg PO QAM montelukast 10 mg tablet (Singulair) 10 mg PO QAM Take evening before surgery atorvastatin 40 mg tablet 40 mg PO HS metoprolol tartrate 50 mg tablet (Lopressor) 50 mg PO BID Other Notes If you have any questions please call us at [phone] or [phone] or [phone] or [phone]
--- NOTE | 2024-07-23 08:29 | Anesthesiology Consultation ---
Date of Service July 23, 2024 Assessment & Plan (1) Encounter for pre-operative examination: - Check BSG DOS - Infectious disease screening: Per assessment on 07/15/24- No known recent infectious disease contacts or current infectious disease symptoms. - Outpatient joint assessment: Pt currently scheduled for inpatient pathway. If surgeon requests review for outpatient joint pathway, patient is not recommended candidate for outpatient joint program from anesthesia standpoint based on available information. - Eliqus instructions: patient made aware that for neuraxial anesthesia, Eliquis needs to be held 72 hours prior to surgery. Patient voiced understanding/will check if okay with prescriber. - Cardiology visit (03/25/24): "Hypertension, mildly uncontrolled, with fluid retention. Options discussed. Increase HCTZ from 12.5 mg/day to 25 mg/day. Check a follow-up basic metabolic panel in 2-3 weeks Possible future escalation to l oop diuretic therapy discussed.. Dyslipidemia. LDL cholesterol 65 mg/dL on 12/28/2023. Continue atorvastatin 80 mg/day.. Mild bilateral carotid artery disease. Carotid duplex in 04/2023 revealed stable mild bilateral internal carotid artery disease unchanged for a number of years. Continue ASA and statin.. Future elective right hip replacement. Options/risks discussed. Risk stratification Lexiscan nuclear stress testing and resting echocardiography requested. No overt cardiac contraindications noted if testing is acceptable. Unprovoked bilateral PE in October 2016 and paroxysmal atrial fibrillation. Continue lifelong anticoagulation. Obstructive sleep apnea. Continue CPAP therapy Dysphagia. Esophageal stenosis status post March 2020 dilatation. Hiatal hernia. LA grade C reflux esophagitis. Continue omeprazole. Type II diabetes mellitus. Follow-up with PCP." Stress test done 04/2024 and Echo done 05/2024 with unremarkable findings (findings detailed in testing section). Both reviewed and "OK" per cardiology. Chart Review Chart Review: Acceptable Risk for Surgery and Patient seen in Pre Admission Testing Teaching & Discussion Pre-Anesthesia Teaching/Discussion Notes: Instructed NPO after midnight before surgery,except medications with 15 cc of water. Medication instructions provided according to the PAT guidelines. History Surgery Operation Date: 08/12/24 12:50 Proposed Procedures p Right Total Hip Arthroplasty - Vini Man MD Height/Weight Height: 5 ft 5 in Weight: 112.4 kg Allergies Allergy/AdvReac Type Severity Reaction Status Date / Time meloxicam Allergy Unknown Swelling Verified 07/16/24 13:57 to extremity Penicillins Allergy Unknown "Violent" Verified 07/16/24 13:57 nose bleeds (as child) codeine AdvReac Unknown N/V, "out Verified 07/16/24 13:57 of body experience" morphine AdvReac Unknown N/V Verified 07/16/24 13:57 Medications Home Medications Medication Instructions Recorded Confirmed Last Taken aspirin 81 mg tablet,delayed 81 mg PO DAILY 11/24/18 07/15/24 12/06/18 release (Fareed Low Dose Aspirin) atorvastatin 40 mg tablet 40 mg PO HS 11/24/18 07/15/24 12/12/18 20:00 acetaminophen 500 mg tablet 1,000 mg PO UD PRN Pain 12/03/18 07/15/24 12/12/18 20:00 (Tylenol Extra Strength) metoprolol tartrate 50 mg tablet 50 mg PO BID #90 tabs 12/10/18 07/15/24 12/13/18 05:30 (Lopressor) empagliflozin 25 mg tablet 25 mg PO QAM 03/07/24 07/15/24 Unknown (Jardiance) hydrochlorothiazide 12.5 mg capsule 25 mg PO QAM 03/07/24 07/15/24 Unknown magnesium citrate [SlowMag Muscle 0 mg PO 3XWK 03/07/24 07/15/24 Unknown Recovery] metformin 500 mg tablet 500 mg PO QAM 03/07/24 07/15/24 Unknown vibegron 75 mg tablet (Gemtesa) 75 mg PO QAM 03/07/24 07/15/24 Unknown omeprazole 40 mg capsule,delayed 20 mg PO QAM 06/13/24 07/15/24 Unknown release apixaban 5 mg tablet (Eliquis) 5 mg PO BID 07/15/24 07/15/24 Unknown losartan 50 mg tablet (Cozaar) 50 mg PO QAM 07/15/24 07/15/24 Unknown montelukast 10 mg tablet 10 mg PO QAM 07/15/24 07/15/24 Unknown (Singulair) Past Medical History Medical History Acid reflux "Silent" Carotid stenosis Carotid duplex 04/2023: R/L ICA < 50% stenosis History of atrial fibrillation Episode of a. fib in setting of sepsis/kidney stone ~[id number] History of kidney stones History of pulmonary embolism (2016) B/L HTN (hypertension) Hyperlipidemia Left rotator cuff tear Mild issues Morbid obesity with BMI of 40.0-44.9, adult Motion sickness Overactive bladder Pre-diabetes PSVT (paroxysmal supraventricular tachycardia) Per records Sleep apnea CPAP (compliant) Exercise / Class Metabolic Activity III < 4 Walking/Shop/Light housework Past Family History Family History Sister Stroke Diabetes Coronary heart disease Past Surgical History Surgical History History of cholecystectomy History of colonoscopy History of cystoscopy History of esophageal dilatation History of hysterectomy History of left knee surgery Left knee tumor removed (benign) + right foor heel spur removal (at same time) History of tonsillectomy + uvulectomy History of urologic surgery R/t kidney stone PONV (postoperative nausea and vomiting) Past Anesthesia History No Hx of Anesthesia Complications and No Family Hx of Anesthesia Complications History of PONV History of PONV and Hx of Motion Sickness Social History Smoking Status: Never smoker Do You Dip or Chew Tobacco: No Hx Alcohol Use: No Hx Substance Use: No substance use type: does not use Review of Systems Patient denies chest pain, shortness of breath, fever, chills, cough, wheezing. Physical Exam Vital Signs BP 122/76 P 69 TEMP 97.8 SP02 96%RA RESP 16 Physical Full cervical extension range of motion. Full TMJ range of motion. TMD 3 finger breaths Mallampati Score III Dentition: missing molars, + crowns Lungs: clear throughout to auscultation Cardiac: regular rate and rhythm, no murmurs noted Spine: normal Carotid arteries: negative bruit Extremities: no LE edema Lab Results Anesthesia Preop Results Results Anesthesia Widget: Na 138 mmol/L (136-145) 07/23/24 K 3.7 mmol/L (3.5-5.1) 07/23/24 Cl 102 mmol/L (98-107) 07/23/24 CO2 28 mmol/L (21-32) 07/23/24 BUN 24 mg/dl (6-23) H 07/23/24 Creat 0.88 mg/dl (0.6-1.2) 07/23/24 Glucose Level 167 mg/dl (70-99(Fasting)) H 07/23/24 PT 11.1 Seconds (9.0-12.0) 07/23/24 PTT 28 Seconds (21-31) 07/23/24 INR 1.0 (0.9-1.1) 07/23/24 Blood Type A Positive 07/23/24 Antibody Screen NEGATIVE 07/23/24 Testing Laboratory Results 07/04/24 WBC 5.55 H/H 13.3/41.2 PLATELETS 213 HGBA1C 7.6% Electrocardiogram Date: 03/25/24 Findings: + NSR @ (66) Chest X-Ray Date: 07/23/24 FINDINGS: Cardiomediastinal and hilar silhouettes are within normal limits. There is no pneumothorax, pleural effusion, airspace consolidation or pulmonary edema. Spondylitic spurring of the spine. IMPRESSION: No acute process. Echocardiogram Date: 05/27/24 LVEF 55-59%. LV wall motion is normal. Grade 1 diastolic dysfunction. Mild AV sclerosis. Stress Test Date: 04/25/24 Type: nuclear Combined low intensity exercise/Lexiscan myocardial perfusion imaging study is normal without evidence of scar inducible ischemia.Mild equivocal EKG changes were observed. No arrhythmias. Gated SPECT imaging reveals normal myocardial thickening and wall motion. LVEF greater than 70%. Other Testing Carotid doppler Date: 05/03/23 The right vertebral artery demonstrates antegrade flow. The left vertebral artery demonstrates antegrade flow. Right carotid artery duplex examination indicates evidence of less than 50% stenosis of the internal carotid artery. Left carotid artery duplex examination indicates evidence of less than 50% stenosis of the internal carotid artery.
--- NOTE | 2024-08-09 14:01 | History & Physical Report ---
Date of Service August 09, 2024 Assessment & Plan (1) Arthritis of right hip: 73-year-old female with multiple medical comorbidities including atrial fibrillation, diabetes, hypertension, elevated cholesterol, obesity with advanced right hip arthritis which is progressed to the point where it is really limiting her activities. He would like to have this fixed. Plan: Treatment options were explained to the patient including operative versus nonoperative treatment. She like to have her right hip fixed with right hip replacement. She got multiple medical comorbidities. She is on Xarelto and she knows to stop that 3 days preop. Will use prophylactic Xarelto dose beginning 24 hours postop. She does have a cardiac history and has been followed by cardiology. They have done an extensive workup including echo which shows some fairly minor changes. That she been cleared for surgery. Will need to provide insulin sliding scale coverage to control her diabetes. She does have a history of PE and on anticoagulation. Once again will use Xarelto for prophylaxis. The risks and benefits were explained and she understands. Informed consent was obtained. She has pain be discharged to home with some home health and her 's assistance. (2) Diabetes mellitus, type 2: (3) HTN (hypertension): (4) Sleep apnea: (5) PSVT (paroxysmal supraventricular tachycardia): (6) Morbid obesity with BMI of 40.0-44.9, adult: (7) Acid reflux: (8) Hyperlipidemia: (9) History of atrial fibrillation: (10) History of pulmonary embolism: History of Present Illness Chief Complaint: . Right hip pain. Primary Care Provider: NO PCP . The patient is a 74-year-old female who presents with a several day history of increasing right hip pain discomfort is gotten worse particular over the past year. No particular injury. She describes groin pain thigh pain and stiffness when she first gets up. He is able to walk aside a little bit and then gets worse as she walks further. She does have a history of a hip injection at 1 time which did not help all that much. It is limiting her lifestyle. Limiting her ability to maintain an active lifestyle. She elected proceed with definitive treatment/hip replacement surgery. Allergies Allergy/AdvReac Type Severity Reaction Status Date / Time meloxicam Allergy Unknown Swelling Verified 07/16/24 13:57 to extremity Penicillins Allergy Unknown "Violent" Verified 07/16/24 13:57 nose bleeds (as child) codeine AdvReac Unknown N/V, "out Verified 07/16/24 13:57 of body experience" morphine AdvReac Unknown N/V Verified 07/16/24 13:57 Home Medications Medication Instructions Recorded Confirmed Type aspirin 81 mg tablet,delayed 81 mg PO DAILY 11/24/18 07/15/24 History release (Fareed Low Dose Aspirin) atorvastatin 40 mg tablet 40 mg PO HS 11/24/18 07/15/24 History acetaminophen 500 mg tablet 1,000 mg PO UD PRN Pain 12/03/18 07/15/24 History (Tylenol Extra Strength) metoprolol tartrate 50 mg tablet 50 mg PO BID #90 tabs 12/10/18 07/15/24 Rx (Lopressor) empagliflozin 25 mg tablet 25 mg PO QAM 03/07/24 07/15/24 History (Jardiance) hydrochlorothiazide 12.5 mg capsule 25 mg PO QAM 03/07/24 07/15/24 History magnesium citrate [SlowMag Muscle 0 mg PO 3XWK 03/07/24 07/15/24 History Recovery] metformin 500 mg tablet 500 mg PO QAM 03/07/24 07/15/24 History vibegron 75 mg tablet (Gemtesa) 75 mg PO QAM 03/07/24 07/15/24 History omeprazole 40 mg capsule,delayed 20 mg PO QAM 06/13/24 07/15/24 History release apixaban 5 mg tablet (Eliquis) 5 mg PO BID 07/15/24 07/15/24 History losartan 50 mg tablet (Cozaar) 50 mg PO QAM 07/15/24 07/15/24 History montelukast 10 mg tablet 10 mg PO QAM 07/15/24 07/15/24 History (Singulair) linagliptin 5 mg tablet (Tradjenta) 5 mg PO DAILY 07/31/24 07/31/24 History acetaminophen 500 mg tablet 1,000 mg (2 x 500 mg) PO TID pain 08/08/24 Rx (Tylenol Extra Strength) 30 days #180 tabs ondansetron 4 mg disintegrating 4 mg PO Q8 PRN nausea #20 tabs 08/08/24 Rx tablet oxycodone 5 mg tablet 5 - 10 mg (1 - 2 x 5 mg) PO Q6 PRN 08/08/24 Rx pain #40 tabs sennosides 8.6 mg tablet (Senokot) 8.6 mg PO BID prevent constipation 08/08/24 Rx 14 days #28 tabs Past Med/Surg History Problem List Encounter for pre-operative examination Arthritis of right hip Diabetes mellitus, type 2 (Chronic) Medical History Carotid stenosis Carotid duplex 04/2023: R/L ICA < 50% stenosis PSVT (paroxysmal supraventricular tachycardia) Per records Morbid obesity with BMI of 40.0-44.9, adult Motion sickness Left rotator cuff tear Mild issues HTN (hypertension) Sleep apnea CPAP (compliant) Overactive bladder Acid reflux "Silent" Hyperlipidemia Pre-diabetes History of atrial fibrillation Episode of a. fib in setting of sepsis/kidney stone ~[id number] History of kidney stones History of pulmonary embolism (2015) B/L Surgical History History of esophageal dilatation PONV (postoperative nausea and vomiting) History of colonoscopy History of cystoscopy History of tonsillectomy + uvulectomy History of urologic surgery R/t kidney stone History of left knee surgery Left knee tumor removed (benign) + right foor heel spur removal (at same time) History of cholecystectomy History of hysterectomy Family History Sister Stroke Diabetes Coronary heart disease Social History Smoking Status: Never smoker Second Hand Exposure: No; Do You Dip or Chew Tobacco: No; Hx Alcohol Use: No Hx Substance Use: No Preferred Language: Vietnamese Communication Ability: Effective 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 Physical Exam . Physical examination was a pleasant middle-aged elderly female. Looks be in reasonably good health. Examination of the right hip reveal patient walks with an antalgic gait. She really limps quite a bit when she first gets up and walks a little bit better as she walks a little bit further. Leg lengths appear clinically pretty equal. She got a very stiff hip with limited internal rotation to neutral at best. This does recreate her pain. No knee effusion. She is neurologically intact. Constitutional WD/WN, vitals as above Neck trachea midline, no thyromegaly Respiratory normal respiratory effort, lungs clear to auscultation Cardiovascular RRR, no murmur, no edema Gastrointestinal (Abdomen) normal bowel sounds, soft, nontender, no hepatosplenomegaly Results & Data Results & Data Laboratory Results . Diagnostic Findings . X-rays of the right hip were reviewed. Shows significant concentric right hip arthritis. She has cystic change of the femoral head. Has a little bit of the superior joint space remaining but her medial joint space is completely obliterated. She got osteophytes particularly inferiorly. 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
--- OUTSIDE RECORDS SUMMARY | 2024-08-12 05:02 | External Medical Summary | Summary of Care ---
Author Name Unknown Organization [facility] Address [address] [place] [address] Phone [phone] Care Team Providers Care Master Data Analyst Name Role Phone Frank Worley MD Primary Care Provider [phone] Reason for Visit * Reason Comments eRx-Medication Refill Encounter Details Date Type Department Care Team (Late st Contact Info) Description 07/22/2024 Refill [facility] [address] [address] [place] [phone] Frank Worley MD [address] [place] [address] Allergies Active Allergy Reactions Criticality Noted Date Comments Meloxicam Edema Other 05/16/2016 Morphine And Codeine 04/27/1998 neuro.changes Penicillins 04/27/1998 nosebleeds documented as of this encounter (statuses as of 07/23/2024) Medications ASPIRIN TABS 81 MG ORIndications:Fam farhat history of diabetes mellitus,Fam hx-cardiovas dis NEC one tab by mouth daily qs 5 1 Active Acetaminophen ER 650 MG Oral Tablet Extended Release Take 1 Tablet by mouth every 8 hours as needed. Daily in summer. Three times a week in the winter Active CPAP every night at bedtime . Active Slow-Mag 71.5-119 MG Oral Tablet Delayed Release (Magnesium Cl-Calcium Carbonate) Take by mouth . Active Losartan Potassium 50 MG Oral Tablet (Cozaar)Indicatio ns:HTN, goal below 130/80 TAKE 1 TABLET DAILY IN THE MORNING. 90 Tablet 3 4 Active Montelukast Sodium 10 MG Oral Tablet (Singulair) Take 1 Tablet by mouth in the morning. 90 Tablet 3 4 Active Empagliflozin 25 MG Oral Tablet (Jardiance) Take 1 Tablet by mouth in the morning. 90 Tablet 3 4 Active Gemtesa 75 MG Oral Tablet (Vibegron) Take 1 Tablet by mouth in the morning. 90 Tablet 1 4 Active Omeprazole 20 MG Oral Capsule Delayed Release (PriLOSEC)Indicat ions:Erosive esophagitis,Esoph ageal stricture Take 1 Capsule by mouth in the morning. 90 Capsule 3 4 Active Metoprolol Tartrate 50 MG Oral Tablet (Lopressor)Indica tions:PAF (paroxysmal atrial fibrillation) (HCC),HTN, goal below 140/90 Take 1 Tablet by mouth in the morning and 1 Tablet before bedtime. 180 Tablet 3 4 Active hydroCHLOROthiazi de 25 MG Oral Tablet (Hydrodiuril) Take 1 Tablet by mouth in the morning. 90 Tablet 3 4 Active Atorvastatin Calcium 80 MG Oral Tablet (Lipitor)Indicati ons:Dyslipidemia TAKE 1 TABLET BY MOUTH DAILY. 90 Tablet 3 4 Active Eliquis 5 MG Oral Tablet (Apixaban)Indicat ions:Paroxysmal atrial fibrillation (HCC) TAKE 1 TABLET BY MOUTH EVERY MORNING AND 1 TABLET BEFORE BEDTIME 180 Tablet 3 4 Active linaGLIPtin 5 MG Oral Tablet (Tradjenta) Take 1 Tablet by mouth in the morning. 90 Tablet 3 4 Active metFORMIN HCl ER 500 MG Oral Tablet Extended Release 24 Hour (Glucophage XR) Take 1 Tablet by mouth in the morning. 90 Tablet 3 4 07/22/20 24 Discontinu ed(Refill) documented as of this encounter (statuses as of 07/23/2024) Active Problems Problem Noted Date Diagnosed Date Primary osteoarthritis of right hip 07/07/2024 Osteoporosis 04/30/2023 Urinary incontinence 10/26/2022 Body mass index (BMI) of 40.0 to 44.9 in adult 0 12/14/2020 Overview: Per Obesity protocol Supraventricular tachycardia 03/18/2019 PAF (paroxysmal atrial fibrillation) 03/01/2017 Carotid disease, bilateral 03/01/2017 HTN, goal below 130/80 03/01/2017 SRIDHAR on CPAP 11/26/2015 Overview (11/26/2015): CPAP 10 cwp (based on APAP trial) 09/2015 PSG - AHI 8.8, <89% 18.6 mins Care Plus Oxygen Type 2 diabetes mellitus wit h hemoglobin A1c goal of less than 7.0% 02/09/2015 Dyslipidemia, goal LDL below 100 06/30/2013 Chronic rhinitis 09/23/2004 Irritable bowel syndrome 02/27/2002 Primary osteoarthritis involving multiple joints documented as of this encounter (statuses as of 07/23/2024) Resolved Problems Problem Noted Date Diagnosed Date Resolved Date Morbid obesity with body mas s index (BMI) of 40.0 to 44.9 in adult 11/21/2017 11/16/2020 Type 2 diabetes, diet controlled 05/14/2017 08/15/2022 Pulmonary embolus and infarction 03/01/2017 03/18/2019 Obesity, morbid (more than 1 00 lbs over ideal weight or BMI > 40) 11/02/2009 11/21/2017 Overview (10/25/2015): Per Obesity Taxonomy ICD-10 update of inactive term Dyslipidemia, goal to be determined 07/15/2009 06/30/2013 Overview (07/15/2009): Per Lipid Taxonomy. Family history of malignant neoplasm of kidney 07/14/2009 05/14/2017 Varicose veins of lower extr emities with complications 09/18/2007 05/14/2017 ACUTE PHARYNGITIS 01/29/2006 09/24/2008 Overview (09/24/2008): Resolved per Benign Acute Dxs Protocol #3 ACUTE URI NOS 01/29/2006 09/24/2008 Overview (09/24/2008): Resolved per Benign Acute Dxs Protocol #3 Unspecified viral infection, in conditions classified elsewhere and of unspecified site 01/29/2006 03/26/2017 ADVANCE DIRECTIVE INFORMATION 04/17/2005 11/21/2017 Overview (04/17/2005): No, Advance Directive brochure given to patient at prior appointment. Mixed dyslipidemia 04/17/2005 9 Overview (06/30/2009): Per Lipid Taxonomy SWELLING, MASS, OR LUMP IN HEAD AND NECK 09/29/2004 05/14/2017 COUGH- POST-BRONCHITIC TUSSIVE SYNDROME 09/23/2004 03/13/2017 DYSFUNCT EUSTACHIAN TUBE 09/23/200404/2017 BENIGN PARXYSMAL VERTIGO 03/11/200304/2017 Other seborrheic keratosis 2002 0 03/26/2017 FAMILY HX-GI MALIGNANCY 02/27/200204/2017 LATERAL EPICONDYLITIS, LEFT 01/07/2002 03/13/2017 FAM HX-DIABETES MELLITUS 02/21/200104/2017 Family history of other card iovascular diseases 02/21/2001 05/14/2017 Overview (10/28/2015): ICD-10 update of inactive term Actinic keratosis 02/21/2001 03/26/2017 Dermatitis 11/21/2000 03/26/2017 Abnormal electrocardiogram 11/21/2000 1 ABN LIVER FUNCTION STUDY 11/21/200004/2017 Varicose vein of leg 03/05/2000 017 OBESITY, UNSPECIFIED 010 Overview (11/02/2009): Per Obesity Taxonomy Urethral stricture 7 PURE HYPERCHOLESTEROLEM 07/06 Overview (07/15/2009): Per Lipid Taxonomy. Heartburn 03/13/2017 Need for prophylactic hormon e replacement therapy (postmenopausal) 05/14/2017 Vertigo 05/14/2017 documented as of this encounter (statuses as of 07/23/2024) Immunizations Name Administration Dates Next Due COVID-19 mRNA, LNP-s, No Pre serve, 2-Dose Series ([employer]) 06/09/2021,09/16/2020,08/27/2020 H1N1 2009 Influenza, IM 08/12/2009 Pneumococcal Conjugate Vacc, 13 Valent (Prevnar) 05/14/2017 Pneumococcal Polysaccharide PPV23 (Pneumovax) 10/17/2021,01/28/2016 Seasonal Influenza Vac., MDV , IM, 0.5 mL (Fluzone) 06/04/2014,06/02/2013,06/12/2012,1108/2010,06/20/2010,06/18/2009,06/10/20 08 Seasonal Influenza, High Dos e, Trivalent, PF, IM (Fluzone HD) 04/09/2024 Seasonal Influenza, PF, 6 M & above, IM , (FluLaval or Fluzone) 04/09/2020,06/10/2018,05/14/2017 06/10/2019 Seasonal Influenza, Quadriva lent Hd (Fluzone Hd) 04/30/2023,04/28/2022,05/31/2021 Seasonal Influenza, Quadriva lent, No Preserve, IM 05/01/2016,05/13/2015 Seasonal Influenza, Trivalen t, Adjuvanted, 65+ YRS, PF, (Fluad) 06/25/2019 TDAP, Age 7 and older, IM (Adacel) 09/30/2010 Varicella Zoster Vaccine (Adult) 03/12/2015 Zoster Vaccine Recombinant (Shingrix) 11/02/2020 ,05/27/2020 documented as of this encounter Social History Tobacco Use Types Packs/Day Years Used Date Smoking Tobacco: Never Passive Smoke Exposure: Past Smokeless Tobacco: Never Alcohol Use Standard Drinks/Week Comments Yes 0 (1 standard drink = 0.6 oz pur e alcohol) rare PHQ-2 Answer Date Recorded PHQ Adult Total Score 0 04/09/2024 Hunger Vital Sign Answer Date Recorded Within the past 12 months, y ou worried that your food would run out before you got the money to buy more. Never true 04/09/20 24 Within the past 12 months, t he food you bought just didn't last and you didn't have money to get more. Never true 04/09/2024 Childcare Answer Date Recorded Do you feel overwhelmed with taking care of a child, family member or friend? No 04/09/2024 Does your family need help f inding childcare? (Household - for ages 0-17 years) Not on file 04/09/2024 Clothing Answer Date Recorded Have you been unable to get clothing when it was really needed? No 04/09/2024 Is your family able to get c lothes or diapers when needed? (Household - for ages 0-17 years) Not on file 04/09/2024 Personal Safety Answer Date Recorded Do you feel unsafe or have concerns for your saf ety? No 04/09/2024 Do you have concerns for you r family's safety? (Household - for ages 0-17 years) Not on file 04/09/2024 Utilities Answer Date Recorded Do you have trouble paying y our heating, water, or electric bill? No 04/09/2024 Is your family able to pay t he heat, water, or electric bill? (Household - for ages 0-17 years) Not on file 04/09/2024 Does your family have access to good internet? (Household - for ages 0-17 years) Not on file 04/09/2024 Employment Status Answer Date Recorded Are you unemployed or without regular income? No 04/09/2024 Does the household have a re lar source of income? (Household - for ages 0-17 years) Not on file 04/09/2024 Social Connections Answer Date Recorded How often do you feel lonely or isolated from th ose around you? Never 04/09/2024 Financial Resource Strain Answer Date R ecorded Do you have any trouble payi ng for your medications, or do you think you might in the future? No 04/09/2024 Does your family have troubl e paying for medicine? (Household - for ages 0-17 years) Not on file 04/09/2024 Transportation Needs Answer Date Record ed Do you have trouble getting a ride to medical visits or work? (Adult - for ages 18 years and over) Not on file 04/09/2024 Does your family have a hard time getting a ride to doctors visits? (Household - for ages 0-17 years) Not on file 04/09/2024 Has lack of transportation k ept you from medical appointments, meetings, work, or from getting things needed for daily living? Check all that apply. No 04/09/2024 Do you (or your family) have trouble finding or paying for a ride (transportation)? (Household - for ages 0-17 years) Not on file 04/09/2024 Housing Stability Answer Date Recorded Do you currently live in a s helter or have no steady place to sleep at night? No 04/09/2024 Do you think you are at risk of becoming homeless? (Adult - for ages 18 years and over) Not on file 04/09/2024 Does your family worry about paying for your home or becoming homeless? (Household - for ages 0-17 years) Not on file 0 04/09/2024 Are you homeless or worried that you might be in the future? No 04/09/2024 Are you (or your family) carolyn eless or worried that you might be in the future? (Household - for ages 0-17 years) Not on file Food Insecurity Answer Date Recorded Do you need food for this week? No 04/09/2024 Are you able to get enough f ood for your family? (Household - for ages 0-17 years) Not on file 04/09/2024 Does your family need food t his week? (Household - for ages 0-17 years) Not on file 04/09/2024 Do you always have enough fo od for your family? 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 [address] [place] [address] 09/08/2024 8:30 AM EST Office Visit Cardiology, [facility] [address] [place] [address] Sarath Anglin PA-C [address] [place] [address] 01/05/2025 9:20 AM EDT Office Visit Family Practice, [facility] [address] [phone] Frank Worley MD [address] [place] [address] 04/14/2025 8:00 AM EDT Nurse Only Ancillary Department, [facility] [address] [place] [address] Ousmane, Nurse Annual Well[facility] [address] [id number] Scheduled Procedures Name Priority Associated Diagnoses Date/Ti me COLONOSCOPY FLEXIBLE PROXIMA L DIAGNOSTIC Recall Family history of colon cancer Health Maintenance Due Date Last Done Comments Cologuard 1996 Sigmoidoscopy 1996 Fecal Occult Blood Test 05/21/2020 05/21/2019, 04/05 *BISPHONATE OR OTHER ACCEPTABLE MEDICATION NEEDED FOR OSTEOPOROSIS (REFER TO SMARTSET #1146) 05/02/2023 COVID-19 Vaccine ( season) 2024 06/09/2021, 09/16/2020, 08/27/2020 Mammogram 07/26/2024 07/26/2023, 07/06, 08/01/2021, Additional history exists Diabetic Eye Exam 09/24/2024 09/24/2023, , 09/20/2021, Additional history exists Albumin/Creatinine Ratio 12/27/2024 024, 07/24/2022, 06/10/2018, Additional history exists HbA1c 01/01/2025 07/04/2024, 12/05, 04/11/2023, Additional history exists DXA Scan 03/26/2025 03/26/2023, 12/2018, 10/18/2014, Additional history exists Adult Wellness Visit 04/09/2025 04/09/2024, 04/04/2023, 04/03/2022, Additional history exists Depression Screening 04/09/2025 04/09/2024 Diabetic Foot Exam 04/09/2025 04/09/2024, 0 08/15/2022, 08/15/2022, Additional history exists GFR 04/09/2025 04/09/2024, 12/05, 10/26/2022, Additional history exists Colonoscopy 06/21/2025 06/21/2020, 06/06, 09/22/2013 Colorectal Cancer Screening 06/21/2025 Lipid Panel 12/27/2028 12/28/2023, 01/05, 06/12/2022, Additional history exists Hepatitis C Screening Completed 12/08/2000 DTap/Tdap Vaccines Discontinued 09/30/2010, 03/17/2004 VITAMIN D LEVEL ONCE IN A LIFETIME-USE SMARTSET# 17025 Completed 11/07/2018, 10/31/2016, 12/24/2012 RETIRED - COLONOSCOPY-EVERY 5 YRS AGES 18-100 Discontinued 06/21/2020, 06/21/2020, 09/22/2013, Additional history exists Zoster Vaccines Completed 11/02/2020, 05/07, 03/12/2015 Pneumococcal Vaccine: 65+ Years Completed 10/17/2021, 05/14/2017, 01/28/2016 Influenza Vaccine (FLU shot) Completed 04/09/2024, 04/30/2023, 04/28/2022, Additional history exists HPV (Gardasil) Vaccine Aged Out No lo nger eligible based on patient's age to complete this topic Hepatitis B Vaccine Aged Out No longe r eligible based on patient's age to complete this topic MENINGOCOCCAL (MENACTRA/MENVEO) Aged Out No longer eligible based on patient's age to complete this topic documented as of this encounter Medical Devices Not on filedocumented as of this encounter Advance Directives * Full Code (Latest Code Status on File) Date Activated Date Inactivated Comments 02/18/2016 7:57 AM 02/18/2016 4:42 PM This order r eflects the patients wishes and were consensually agreed upon. * No Code Status Date Activated Date Inactivated Comments 09/25/2003 2:39 PM 09/25/2003 3:39 PM Care Teams Master Data Analyst Relationship Specialty Start Date End Date Frank Worley MD [address] [place] [address] PCP - General Internal Medicine 04/11/22 documented as of this encounter
--- OUTSIDE RECORDS SUMMARY | 2024-08-12 05:02 | External Medical Summary | Summary of Care ---
Author Name Unknown Organization [facility] Address [address] [place] [address] Phone [phone] Care Team Providers Care Pin Pusher Name Role Phone Frank Worley MD Primary Care Provider [phone] Reason for Visit * Reason Onset Date Comments Medication Refill 07/22/2024 Encounter Details Date Type Department Care Team (Late st Contact Info) Description 07/22/2024 Refill [facility] [address] [place] [phone] Frank Worley MD [address] [place] [address] Allergies Active Allergy Reactions Criticality Noted [...] the morning. 90 Tablet 1 4 Active metFORMIN HCl ER 500 MG [...] mRNA, LNP-s, No Pre serve, 2-Dose Series (Pf[employer]) 06/09/2021,09/16/2020,08/27/2020 H1N1 2009 Influenza, IM 08/12/2009 Pneumococcal [...] 04/09/2024 Does the household have a re gular source of income? (Household - for ages [...] Notes * Telephone Encounter - Yamilex Garsia RPh - 07/23/2024 11:17 AM EST Resending remaining refills to pharmacy as requested. Thank you, Yamilex Garsia, PharmD Clinical Pharmacist [facility] Clinical Pharmacy Services (formally Telepharmacy) [phone] 07/23/2024 11:17 AM documented in this encounter Plan of Treatment Upcoming Encounters Date Type Department Care Team (Late st Contact Info) Description 07/28/2024 10:30 AM EST Imaging Radiology [facility] [address] [place] [address] 09/08/2024 8:30 AM EST Office Visit Cardiology, [facility] [address] [place] [address] Sarath Anglin PA-C [address] [place] [phone] 01/05/2025 9:20 AM EDT Office Visit [facility], [facility] [address] [facility] [facility] [place] [phone] Frank Worley MD [address] [address] [facility] [place] [address] 04/14/2025 8:00 AM EDT Nurse Only Ancillary Department, [facility] [address] [facility] [place] [phone] [place] [address] [address] Scheduled Procedures Name Priority Associated Diagnoses Date/Ti [...] Additional history exists DXA Scan 03/26/2025 03/26/2023, 08/12/2018, 10/18/2014, Additional history exists Adult Wellness Visit [...] D LEVEL ONCE IN A LIFETIME-USE SMARTSET# [id number] Completed 11/07/2018, 10/31/2016, 12/24/2012 RETIRED - COLONOSCOPY-EVERY [...] 2:39 PM 09/25/2003 3:39 PM Care Teams Pin Pusher Relationship Specialty Start Date End Date Frank Worley MD [address] [place] [address] PCP - General Internal Medicine 04/11/22 documented as of this encounter
[2024-08-12] MEDS: LR 500ML BOLUS, THEN 15ML/HR IV SCH (05:50)
[2024-08-12] MEDS: CeleBREX 200 MG CAP PO SCH (06:01)
[2024-08-12] MEDS: ACETAMINOPHEN 500 MG TAB PO SCH ×2 (06:01→14:57)
[2024-08-12] MEDS: LR 60ML/HR IV SCH (06:02)
[2024-08-12] MEDS: FAMOTIDINE 20 MG TAB PO SCH (06:02)
[2024-08-12] MEDS: dexAMETHasone**PF** 10 MG/ML VIAL IV SCH (06:02)
[2024-08-12] MEDS ORDERED: fentaNYL citrate PF 100 MCG/2 ML VIAL ONE (06:27)
[2024-08-12] MEDS ORDERED: MIDAZOLAM HCL 1 MG/ML 2ML VIAL ONE ×2 (06:27→07:00)
[2024-08-12] MEDS ORDERED: BUPIVACAINE 0.5 % 5 MG/1 ML PF 10ML VIAL ONE (06:29)
[2024-08-12] MEDS ORDERED: ATROPINE SULFATE 0.1 MG/ML 10ML SYR IV PRN (06:39)
[2024-08-12] MEDS ORDERED: fentaNYL citrate PF 100 MCG/2 ML VIAL IV PRN (06:39)
[2024-08-12] MEDS ORDERED: ePHEDrine sulfate 50 MG/ML AMP IV PRN (06:39)
[2024-08-12] MEDS ORDERED: ONDANSETRON INJ 2 MG/ML 2 ML VIAL IV PRN ×2 (06:39→09:40)
[2024-08-12] MEDS ORDERED: PROPOFOL IV EMULSION 10 MG/ML 20 ML VIAL IV ONE (06:40)
[2024-08-12] MEDS: TRANEXAMIC ACID 1,000 MG **IV Pre-op IV SCH (06:44)
--- NOTE | 2024-08-12 06:46 | History & Physical Bridge Note ---
Date of Service August 12, 2024 History & Physical Bridge Note I have examined the patient, reviewed the History & Physical and in the interval since the performance of the History & Physical I have noted the following changes of clinical significance: no changes noted
[2024-08-12] MEDS ORDERED: KETAMINE HCL 10MG/ML SYR ONE (07:04)
[2024-08-12] MEDS: ceFAZolin 2000MG 2,000 MG/15 ML SYR IV SCH ×2 (07:10→15:46)
[2024-08-12] MEDS: BUPIVACAINE/EPINEPHRINE 0.5% MPF 1:200,000 30 ML VIAL ONE (07:30)
--- NOTE | 2024-08-12 08:41 | Operative Report ---
PG Post Operative Report Pre & Post Diagnosis Operation Date: 08/12/24 07:00 Pre-Op Diagnosis: Right Hip Degenerative Joint Disease Post-Op Diagnosis: Right Hip Degenerative Joint Disease I identified the patient and participated in the time-out.: Yes Procedure Operation Date: 08/12/24 07:00 Actual Procedures p Right Total Hip Arthroplasty, Uncemented(Right) - Vini Man MD Surgeon Vini Man MD Scheme Technician Glenn Lewis PA-C Estimated Blood Loss 200 Findings Consistent with Post-Op Diagnosis Operative findings were advanced right hip DJD. She had a large hip joint effusion. She has significant osteophytes circumferentially around the acetabulum. She had grade 4 [id number] disease of the femoral head and acetabulum. Specimens Right femoral head sent for pathology. Anesthesia Type Spinal MAC Complications none Disposition Accompanied Patient To Recovery: No Indications The patient is a 74-year-old female whose had a several year history of increasing right hip pain discomfort described to gotten worse over time. She failed conservative measures. X-rays show advanced right hip arthritis. She elects proceed with total hip arthroplasty. Description of Procedure Operative implants consist of: 1 Biomet G7 size 52 mm acetabular shell. 2. 6.5 cancellous acetabular screws 1 of 35 mm in length and 1 of 30 mm length. 3. [place] hole process engineering manager. 4. Highly cross-linked polyethylene liner with a 52 mm outer diameter and 36 mm diameter. 5. DePuy Corail I size 12 short neck, 125 degree angle femoral stem. 6. +1.5/36 mm ceramic articular ball. The patient was taken the operating, identified, placed on the operating table in the supine position. All conductors were appropriately padded. IV antibiotics tried by anesthesia team. A spinal anesthetic had been implemented holding area. A Pastrana catheter was placed in sterile fashion. The patient was then placed in the left lateral decubitus position. An axillary roll was placed . A stool Birkett position was used for positioning. The right hip and leg were then prepped and draped in usual sterile fashion. A posterolateral approach to the right hip was then performed to a curvilinear incision centered over the greater trochanter. Sharp dissection was Through subcutaneous tissue dental of the IT band gluteal fascia. The IT band gluteal fascia was sized longitudinally in line with skin incision. The underlying greater bursa was excised. The piriformis and external rotators along with the posterior hip joint capsule were then released from the posterior aspect the hip as a single layer. Great care was taken throughout the procedure protect the sciatic nerve at all times. Hip was then internally rotated and dislocated. A femoral neck osteotomy cut was made with a Final Cut about 15 mm above the lesser trochanter. The femoral head was removed. The femur was retracted anteriorly. Attention drawn the acetabulum. The acetabular labrum was fairly ossified. I did remove this with use of a duckbill rongeur. Sequential reaming the acetabulum was then performed beginning with a size 45 and progressing up to a 51. I reamed a little bit with a 52 reamer and then placed a 52 mm Biomet acetabular shell in about 40 degrees lateral opening and 20 degrees of anteversion. It was fixed with two 6.5 screws. A trial liner was placed. Attention drawn the femur. The proximal femur was entered with a [employer] cutter followed by canal finder. I then broached beginning with size 8 and progressed up to 12. Get excellent fitted to 12. We trialed the hip and the standard implant was just too long with too much offset. We elected to use a short neck. Even with a +5 head on the short neck it seemed a bit tight in extension send that was fully stable so we elect to use a 1.5/36 mm ceramic articular ball. The hip was fully stable. Leg lengths seemed equal. Soft tissue sentient seemed appropriate. We elect to place his implants. All trial implants were removed. An apex hole process engineering manager was placed. Highly cross-linked polyethylene liner was placed. A size 12 short neck 125 degree angle KLA femoral stem was impacted in position. A +1.5/36 mm ceramic articular ball was placed. Hip was located and once again found to be stable. Attention drawn toward closing. The wounds irrigated coconuts of pulsatile lavage solution. I did inject locally with 60 cc of half percent Marcaine with epinephrine. The posterior capsule and external rotators were then repaired through drill holes in the posterior trochanter with #2 Tycron suture. The IT band gluteal fascia then closed with #1 PDS suture in running fashion with subcutaneous tissues then closed with 2 layers of the deep layer #2 Vicryl suture and in the subcutaneous tissue with 2 Dexon suture in a buried interrupted fashion. Skin was then closed with skin magdalena. Leg was then cleaned and dried and a sterile dressing composed of a Prevena VAC dressing was applied due to the very thick soft tissue envelope. The patient was then transferred to the recovery room in stable condition. Patient tolerated procedure well and there were no complications. Glenn Lewis, my physician infertility medical assistant, was present for the entire procedure. His assistance was essential and required for appropriate patient positioning, prepping and draping, surgical exposure, performing the technical details of the operation, placement the implants, closure of the wound, and placement of the sterile bandage. I attest to the content of the Intraoperative Record and any orders documented therein. Any exceptions are noted below.
--- NOTE | 2024-08-12 09:02 | XRay Report ---
XR hip 1V RT w pelvis CLINICAL HISTORY: IN PACU - Post Surgical TECHNIQUE: 1 view of the right hip and single frontal view of the pelvis were obtained. Comparison: Comparison is made to hip radiograph 11/07/2021 FINDINGS: Patient is status post total hip arthroplasty with expected postsurgical changes including soft tissu e swelling and subcutaneous emphysema. IMPRESSION: Expected postoperative appearance status post placement of total hip arthroplasty. ACT 112: Negative or not required by law. Electronically signed by: Natalio Urrutia M.D. 08/12/2024 9:01 AM
[2024-08-12] MEDS ORDERED: METOCLOPRAMIDE HCL INJ 5 MG/ML 2 ML VIAL IV PRN (09:40)
[2024-08-12] MEDS ORDERED: GLUCAGON FOR INJ 1 MG VIAL SQ PRN (09:40)
[2024-08-12] MEDS ORDERED: HYDROmorphone INJ 0.5 MG/0.5 ML SYR IV PRN (09:40)
[2024-08-12] MEDS ORDERED: EMPAGLIFLOZIN 25 MG TAB PO SCH (09:40)
[2024-08-12] MEDS ORDERED: PHARMACY GLYCEMIC MGMT CONSULT PRN (09:40)
[2024-08-12] MEDS ORDERED: NALOXONE HCL 0.4 MG/1 ML VIAL/CARP IV PRN (09:40)
[2024-08-12] MEDS ORDERED: oxyCODONE HCL IR 5 MG TAB (IMMEDIATE RELEASE) PO PRN (09:40)
[2024-08-12] MEDS ORDERED: MAGNESIUM HYDROXIDE SUSP 30 ML UDC PO PRN (09:40)
[2024-08-12] MEDS ORDERED: ALUMINUM/MAGNESIUM SUSP 30 ML UDC PO PRN (09:40)
[2024-08-12] MEDS ORDERED: GLUCOSE 40% GEL 15 GM TUBE PO PRN (09:40)
[2024-08-12] MEDS ORDERED: bisacodyL 10 MG SUPP PR PRN (09:40)
[2024-08-12] MEDS ORDERED: CARBOHYDRATES FOR HYPOGLYCEMIA PO PRN (09:40)
[2024-08-12] MEDS ORDERED: DEXTROSE 50% 50 ML SYRINGE IV PRN (09:40)
[2024-08-12] MEDS ORDERED: GLUCOSE 10 TAB/TUBE PO PRN (09:40)
[2024-08-12] MEDS: KETOROLAC TROMETHAMINE 15 MG/ML VIAL IV SCH (10:49)
--- NOTE | 2024-08-12 11:08 | Anesthesiology Progress Note ---
Date of Service August 12, 2024 Anesthesia Post Procedure Vital Signs Vital Signs: Temp Pulse Pulse Resp BP Pulse Ox O2 Del Method 08/12/24 10:39 73 16 153/81 H 97 Room Air 08/12/24 10:08 97.5 F L 72 16 153/80 H 98 Room Air 08/12/24 09:41 97.5 F L 70 16 143/76 H 96 Room Air 08/12/24 09:20 96.8 F L 72 18 130/51 L 97 Room Air 08/12/24 09:10 97.3 F L 67 16 135/59 L 95 Room Air 08/12/24 09:00 75 16 140/71 97 Room Air 08/12/24 08:50 72 16 140/69 99 Oxymask 08/12/24 08:40 84 18 125/66 100 Oxymask 08/12/24 08:29 96.8 F L 89 14 130/62 93 Oxymask 08/12/24 05:37 98.2 F 73 18 173/83 H 98 Room Air O2 Flow Rate 08/12/24 10:39 08/12/24 10:08 08/12/24 09:41 08/12/24 09:20 08/12/24 09:10 08/12/24 09:00 08/12/24 08:50 3 08/12/24 08:40 3 08/12/24 08:29 6 08/12/24 05:37 Transfer of Care Handoff Completed per policy Notes Mental Status: alert / awake / arousable and participated in evaluation Patient Amnestic to Procedure: Yes Nausea / Vomiting: adequately controlled Pain: adequately controlled Airway Patency, RR, SpO2: stable & adequate BP & HR: stable & adequate Hydration State: stable & adequate Neuraxial Anesthesia: was administered and sensory block is resolving Anesthetic Complications: no major complications apparent and Pt Satisfied with anesthetic care
[2024-08-12] MEDS: INSULIN ASPART PER UNIT CHARGE SC SCH (11:11)
[2024-08-12] MEDS: LANTUS PER UNIT CHARGE SC ONE (11:12)
[2024-08-12] MEDS: METOCLOPRAMIDE HCL 10 MG TABLET PO SCH (12:02)
[2024-08-12] MEDS: MONTELUKAST SODIUM 10 MG TABLET PO SCH (12:05)
[2024-08-12] MEDS: METOPROLOL TARTRATE 50 MG TAB PO SCH (12:05)
[2024-08-12] MEDS: LOSARTAN POTASSIUM 50 MG TAB PO SCH (12:06)
[2024-08-12] MEDS: VIBEGRON 75 MG TAB PO SCH (12:07)
[2024-08-12] MEDS: hydroCHLOROthiazide 25 MG TAB PO SCH (12:07)
[2024-08-12] MEDS: ASPIRIN 81 MG ECTAB PO SCH (12:08)
[2024-08-12] MEDS: MULTIVITAMIN TAB PO SCH (12:08)
[2024-08-12] MEDS: DOCUSATE SODIUM 100 MG CAP PO SCH (12:10)
[2024-08-12] MEDS: SENNA 8.6 MG TAB PO SCH (12:10)
--- NOTE | 2024-08-12 13:29 | Pharmacy Report ---
Pharmacy Glycemic Short Note 2 - Date of Service August 12, 2024 - Glycemic Short BSG Results (Last 24 hours): 08/12/24 08/12/24 05:28 10:54 POC Glucose 139 H 167 H OUTPATIENT ANTIDIABETIC REGIMEN: * metformin 500 mg PO daily * Jardiance 25 mg PO daily * Tradjenta 5 mg PO daily HbA1c: ordered for 08/13/24 ASSESSMENT: * SINDHU is a 74 year old female POD #0 s/p right total hip arthroplasty * Received 10 mg IV dexamethasone in OR, ordered 10 mg IV dose tomorrow AM as well * Preop blood sugar of 139 mg/dL and postop blood sugar of 167 mg/dL * More aggressive regimen for now while on steroids, will likely need to decrease on POD #2 once steroids discontinued PLAN FOR INPATIENT GLYCEMIC CONTROL: * Hold outpatient oral diabetes medications * Basal insulin * Lantus 25 units SC x 1 (~0.2 unit/kg) to help cover steroid-induced hyperglycemia * Bolus insulin * NovoLog per scale ACHS or Q6hrs while NPO * Goal Range: Low 110 mg/dL - High 140 mg/dL * Correction Factor: 20 mg/dL/unit * Nutritional / Prandial insulin per carb ratio of 1 unit per 6 grams CHO consumed
[2024-08-12] MEDS: TRANEXAMIC ACID / 0.7% NACL 1,000 MG/100 ML BAG IV SCH (14:57)
[2024-08-12] MEDS: ASCORBIC ACID 500 MG TAB PO SCH (17:30)
[2024-08-12] MEDS ORDERED: SENNA 8.6 MG TAB PO SCH (21:00)
[2024-08-12] MEDS: ATORVASTATIN 40 MG TAB PO SCH (21:13)
[2024-08-13 07:02] LABS: Basophils # (auto) 0.01 K/uL (0.00-0.20); Basophils % (auto) 0.1 %; Hematocrit (blood only) 36.7 % (37.0-47.0); Hemoglobin 12.2 g/dl (12.0-16.0); Immature Granulocytes # (auto) 0.05 K/uL (0.01-0.20); Immature Granulocytes % (auto) 0.5 %; Lymphocytes % (auto) 12.6 %; Mean Corpuscular Hgb Conc 33.2 g/dL (32.0-36.0); Mean Corpuscular Volume 84.4 fL (80.0-100.0); Mean Platelet Volume 9.5 fL (9.4-12.4); Monocytes # (auto) 0.78 K/uL (0.11-0.59); Neutrophils # (auto) 8.86 K/uL (1.40-6.50); Neutrophils % (auto) 79.8 %; Platelet Count 200 K/uL (130-400); RDW Coefficient of Variation 13.6 % (11.5-14.5); RDW Standard Deviation 41.9 fL (36.4-46.3); Red Blood Count 4.35 M/uL (4.20-5.40)
[2024-08-13 07:32] LABS: BUN Creatinine Ratio 28.1 (10-20); Calcium 8.9 mg/dl (8.6-10.3); Creatinine Clr Calc Pharmacy 65.7 ml/min; Potassium 3.8 mmol/L (3.5-5.1)
[2024-08-13 07:33] VITALS: RESP 18; O2SAT 98
[2024-08-13 07:56] LABS: Estimated Average Glucose 166 mg/dl; Hemoglobin A1C 7.4 % (4.5-5.6)
[2024-08-13] MEDS: dexAMETHasone 10 MG in SYRINGE 0 ML IV SCH (08:39)
[2024-08-13] MEDS: APIXABAN 2.5 MG TAB PO SCH (08:39)
[2024-08-13] MEDS: PANTOprazole 40 MG TAB PO SCH (08:41)
[2024-08-13] MEDS: LANTUS PER UNIT CHARGE SC ONE (08:52)
--- NOTE | 2024-08-13 11:08 | Pharmacy Report ---
Pharmacy Glycemic Short Note 2 - Date of Service August 13, 2024 - Glycemic Short BSG Results (Last 24 hours): 08/12/24 08/12/24 08/13/24 16:21 20:33 06:47 Glucose 136 H POC Glucose 166 H 186 H 08/13/24 07:31 Glucose POC Glucose 122 H OUTPATIENT ANTIDIABETIC REGIMEN: * metformin 500 mg PO daily * Jardiance 25 mg PO daily * Tradjenta 5 mg PO daily HbA1c: ordered for 08/13/24 ASSESSMENT: 08/13/24 * pt received 37 units of insulin yesterday * 25 units insulin glargine * 12 units insulin aspart * Fasting BSG this AM within goal range, 122,136. BSGs last night slightly above goal range, tightened correction factor and carb ratio. * Pt received postop 10mg of dexamethasone IVP this AM. Postop ancef continued. * T2DM diet continued. 08/12/24 * KD is a 74 year old female POD #0 s/p right total hip arthroplasty * Received 10 mg IV dexamethasone in OR, ordered 10 mg IV dose tomorrow AM as well * Preop blood sugar of 139 mg/dL and postop blood sugar of 167 mg/dL * More aggressive regimen for now while on steroids, will likely need to decrease on POD #2 once steroids discontinued PLAN FOR INPATIENT GLYCEMIC CONTROL: * Hold outpatient oral diabetes medications * Basal insulin * Lantus 25 units SC x 1 (~0.2 unit/kg) to help cover steroid-induced hyperglycemia * Bolus insulin * NovoLog per scale ACHS or Q6hrs while NPO * Goal Range: Low 110 mg/dL - High 140 mg/dL * Correction Factor: 15 mg/dL/unit * Nutritional / Prandial insulin per carb ratio of 1 unit per 5 grams CHO consumed
--- NOTE | 2024-08-13 11:38 | Orthopedic Progress Note ---
Date of Service August 13, 2024 Assessment & Plan (1) Status post right hip replacement: Plan: 74-year-old female postop day 1 from a right hip replacement doing pretty well. Pains controlled. As she is neurologically intact. Plan: 1. DVT prophylaxis. Continued with the thigh-high teds, SCDs, will start her back on Eliquis at a prophylactic dose 24 hours postop. 2. PT/OT. Weight-bear as tolerated. Total protocol. 3. Pain control. Doing okay with current pain regimen. 4. Disposition. Plan to discharge to home with home health later today if she does okay in therapy. Admission and Anticipated Discharge Date Admission Date: August 12, 2024 Subjective 74-year-old female postop day 1 from right hip replacement. She is doing pretty well. Her pain control. Got a little bit dizzy and nauseated with the pain medicine. No chest pain or shortness of breath. She is open to go home today. Physical Exam Physical Exam: Physical exam shows a pleasant middle-age female. Just sitting up in her bedside chair talking to therapist and looks pretty comfortable. Diminished right hip and leg reveals the dressing/Prevena VAC dressing to be in place. There are sized soft and supple. Leg lengths are equal. Hips located. She is neurologically intact. She can dorsiflex and plantarflex her foot appropriately. Respiratory: normal respiratory effort, lungs clear to auscultation Cardiovascular: RRR, no murmur, no edema Gastrointestinal (Abdomen): normal bowel sounds, soft, nontender, no hepatosplenomegaly Results & Data Vital Signs (Past 12 Hours) Vital Signs Temp Pulse Resp BP Pulse Ox O2 Del Method 08/13/24 08:35 74 123/64 08/13/24 07:32 36.6 C 65 18 148/63 H 98 Room Air 08/13/24 03:11 36.5 C 71 14 127/68 97 Room Air Laboratory Results Hemoglobin is 12.2 with hematocrit 36.7. (
[2024-08-13 11:43] VITALS: BP 112/68; PULSE 68; TEMP 99
--- NOTE | 2024-08-14 16:04 | Discharge Summary ---
Date of Service August 14, 2024 Admission HPI (Per Admitting) . The patient is a 74-year-old female who presents with a several day history of increasing right hip pain discomfort is gotten worse particular over the past year. No particular injury. She describes groin pain thigh pain and stiffness when she first gets up. He is able to walk aside a little bit and then gets worse as she walks further. She does have a history of a hip injection at 1 time which did not help all that much. It is limiting her lifestyle. Limiting her ability to maintain an active lifestyle. She elected proceed with definitive treatment/hip replacement surgery. Admission Exam (Per Admitting) . Physical examination was a pleasant middle-aged elderly female. Looks be in reasonably good health. Examination of the right hip reveal patient walks with an antalgic gait. She really limps quite a bit when she first gets up and walks a little bit better as she walks a little bit further. Leg lengths appear clinically pretty equal. She got a very stiff hip with limited internal rotation to neutral at best. This does recreate her pain. No knee effusion. She is neurologically intact. Principal Diagnosis Same as "Discharge Diagnosis" noted below under Discharge Instructions. Discharge Data Procedures Performed Operation Date: 08/12/24 07:00 Actual Procedures p Right Total Hip Arthroplasty, Uncemented(Right) - Vini Man MD Hospital Course (1) Status post right hip replacement: This is a 74 year old patient admitted on 08/12/23 and underwent total hip arthroplasty. She tolerated the procedure well and there were no complications. Transferred to the PACU post op and later to the orthopedic floor for further care. She was given ancef for antibiotic prophylaxis. She was also given MELISSA stockings, SCDs, and eliquis for DVT prophylaxis. Hemoglobin, hematocrit, and vital signs were monitored during her hospital stay and remained stable. Did not require any blood transfusions. There were no complications during her hospital stay. By post op day #1 the patient was tolerating a diabetic diet, pain was reasonably controlled with oral pain medicine, and she was participating in physical therapy. On post op day #1 the patient was discharged home and set up with home health care. She was given printed discharge instructions including prescriptions for extra strength tylenol, zofran, oxycodone, and senokot. Continue hip precautions. Continue physical therapy, weight bearing as tolerated. Continue MELISSA stockings. Follow up approximately 2 weeks post op or sooner if there are problems or concerns. Discharge Plan Discharge Items Patient Disposition: Home - Home Health Services Reason For Visit: Osteoarthritis Hip Right Discharge Diagnosis: Right Hip Replacement Activity: Per Instructions section Activity Comment: Follow/Obey hip precautions at all times. Weightbearing: Full weightbearing Weightbearing Comment: Weightbear as tolerated obeying hip precautions at all times. Non-emergency contact: Surgeon Call non-emergency contact if: you have any medication questions Follow-up/Referrals: Frank Worley MD [Primary Care Provider] - Diet: Carb Consistent or DM2 Addtl Attending Provider Instructions: ACTIVITY RECOMMENDATIONS: Diet: * You may resume previous diet. Physical Therapy: * Aggressive physical therapy is not usually needed. You will learn to take care of yourself safely and walk. * Follow the "Hip Precautions Instructions." * In some cases, the social service liaison at the hospital will arrange to have a therapist come to your house for the first couple of weeks to help you learn these skills. * You need to practice on your own or with the help of a family member as needed. * When you learn these skills, most of the therapy can be done on your own. Home Exercise: * You were shown a series of exercises in the hospital. Do these exercises three to four times each day including the exercises you were shown in physical therapy. Walking: * Get up and walk several times each day. For the first four weeks, try not to stand or walk for more than one hour at a time. If you do stand or walk for more than one hour, you will not hurt anything, but your leg will likely swell. * As you feel comfortable, you may change from the walker or crutches to a cane and then to independent walking. MEDICATIONS: New Medicine: * You will likely be taking one or more of these medicines: 1. Oxycodone - Take, as directed, when you need it, every six hours to control your pain. 2. Eliquis - Thins your blood to lessen the chance of forming a blood clot. * The most common side effects of pain medicine and iron are nausea and constipation. If nausea or constipation is too much of a problem or if you have any questions about your new medicines or doses, call [facility] at . We will try to help you manage these issues. "VERY IMPORTANT TO READ AND REVIEW" Pain: * The immediate post-operative period after hip replacement surgery is often quite painful. * You are given a prescription for pain medicine. You should take it, as directed, when you need it, especially before physical therapy and before going to bed. Pain that interferes with sleep is very common and can last several months. * You will likely need pain medicine for the first two to four weeks. It will not stop all of the pain. The pain will lessen and as you feel better, you may change to milder pain medicine such as Tylenol. * The most common side effects of pain medicine are nausea and constipation, so don't take more than you need. SPECIAL CARE INSTRUCTIONS: TEDs/Elastic Stockings: * The white elastic stockings help limit swelling and prevent blood clots from forming in your legs. The more you wear them, the more they work. * Wear them for six weeks. Incision Site Care: * Remove dressing postoperative day 2 and then shower. Keep direct shower pressure off the incision site. * After showering, cover remberto with dry gauze and change daily or more frequently if the dressing is getting saturated with drainage. * May completely stop using bandage if wound is dry and no drainage * Remberto are removed between 2 and 3 weeks post-op. If your follow-up appointment is made before 2 weeks, please have your appointment re- scheduled. It is too early to remove the remberto. Prevention of Infection: * Take antibiotics one hour before any dental cleaning, dental work, urological procedure, gastrointestinal procedure or any invasive surgery in order to prevent your new joint from getting infected. * You may get the antibiotics from the doctor performing the procedure or you may call our office at before and we will call in a prescription to the pharmacy of your choice. Things to Watch For: * Drainage from the incision site that occurs more than one week after your surgery. * Severely increased leg pain or swelling. * Increased redness at the incision site. * Fever above 102 degrees Fahrenheit. * Unusual chest pain or shortness of breath. * Unusual pain or burning with urination. Call [facility] at with any of the above problems or if you have any questions about your medicines or recovery. FOLLOW UP VISIT: Make an appointment to see your doctor for approximately two weeks after surgery for a progress check and staple removal by calling the office at . Pending Studies at Discharge: No Stand-Alone Forms: My [facility], Smoking Cessation Medications and DC Order Prescriptions: Continued oxycodone 5 mg tablet 5 - 10 mg PO Q6 PRN (Reason: pain) Qty: 40 0RF Rx Instructions: Take as needed for pain ondansetron 4 mg tablet,disintegrating 4 mg PO Q8 PRN (Reason: nausea) Qty: 20 1RF Rx Instructions: Take as needed for nausea sennosides [Senokot] 8.6 mg tablet 8.6 mg PO BID 14 Days Qty: 28 0RF Rx Instructions: Take two times a day to prevent/treat constipation acetaminophen [Tylenol Extra Strength] 500 mg tablet 1,000 mg PO TID 30 Days Qty: 180 0RF Rx Instructions: Take 3 times per day to lessen pain. omeprazole 40 mg capsule,delayed release(DR/EC) 20 mg PO QAM Gemtesa 75 mg tablet 75 mg PO QAM magnesium citrate [SlowMag Muscle Recovery] 0 mg PO 3XWK Patient Comments: days vary metformin 500 mg tablet 500 mg PO QAM hydrochlorothiazide 12.5 mg capsule 25 mg PO QAM Jardiance 25 mg tablet 25 mg PO QAM atorvastatin 40 mg tablet 40 mg PO HS aspirin [Fareed Low Dose Aspirin] 81 mg Tablet,Delayed Release (Dr/Ec) 81 mg PO DAILY metoprolol tartrate [Lopressor] 50 mg tablet 50 mg PO BID Qty: 90 4RF Eliquis 5 mg Tablet 5 mg PO BID losartan [Cozaar] 50 mg Tablet 50 mg PO QAM montelukast [Singulair] 10 mg Tablet 10 mg PO QAM Patient Comments: for frequent throat clearing Tradjenta 5 mg Tablet 5 mg PO DAILY Discontinued acetaminophen [Tylenol Extra Strength] 500 mg Tablet 1,000 mg PO UD PRN (Reason: Pain) No Action (DME) Mikey Jhaveri See Rx Instructions .MEDSUPPLY Qty: 1 0RF Rx Instructions: As directed Admission Data Admit Date/Time: 08/12/24 08:33 Attending Provider: Vini Man Admit Provider: Vini Man Primary Care Provider: Frank Worley Other Providers: [facility],Home Health Other Interventions: Discharge Summary Assessment (RN) Last Done: 08/13/24 11:34
--- NOTE | 2024-08-16 11:08 | Orthopedic Progress Note ---
Date of Service August 16, 2024 Assessment & Plan (1) Status post right hip replacement: Plan: Will attempt to get Tegaderm dressing to place around the periphery to regain seal. Will contact [facility] financial planner and see if home nursing can visit to evaluate the wound vac and aid with regaining seal. Dr. Colindres covering for Dr. Man Admission and Anticipated Discharge Date Admission Date: August 12, 2024 Orthopedic Progress Note 74 yo female, called the answering service last evening as her wound vac had lost its seal. States that they do not have any home nursing set-up since discharge for her PITER done by Dr. Man last week.
== END 2024-08-13 12:20 | disposition home health service (06) ==
LOC: ASU 04:55 → 3E 04:55